=== PATIENT | female | born 1955 | race Caucasian/White ===

== ENCOUNTER 2024-06-21 23:17 | Inpatient (IN) | payer MEDICARE, MEDICAID, SELFPAY ==
--- NOTE | 2024-06-21 23:19 | PC.NURSE ---
PT BROUGHT TO ER FROM HOME BY AMBULANCE, PT TRIPPED AND FALL, C/O SEVERE LEFT SHOULDER PAIN AND RIGHT KNEE PAIN.
[2024-06-21 23:23] VITALS: BMI 25.4
[2024-06-21 23:26] VITALS: BP 175/107; PULSE 99; RESP 18; TEMP 36.9; O2SAT 98
--- NOTE | 2024-06-21 23:37 | XR_ITS ---
Examination: Knee, right , 3 views Technique: Knee AP, lateral, oblique 3 views Date and time of exam: June 21, 2024 1148 hrs. Indications: Patient fell today with injury to the knee, knee pain. Findings: Severe osteopenia Acute fracture lower third of the patella without significant displacement Axial view of the patella would be helpful to exclude subluxation laterally Probable trabecular markings in the proximal tibia but clinical correlation advised Impression: Acute fracture patella On the AP view the patella is laterally situated, suggest axial view follow-up to exclude patellar subluxation
--- NOTE | 2024-06-21 23:37 | XR_ITS ---
Examination: Left shoulder 2 views Technique: AP internal rotation Y-view left shoulder 2 views January 19, 2025 1143 hrs. Indications: Patient fell today with injury to the shoulder, shoulder pain. Findings: Acute comminuted fracture humeral neck No significant displacement No definite shoulder dislocation Calcific tendinitis Impression: Acute fracture humeral neck
--- NOTE | 2024-06-21 23:43 | EDNOTE_ITS ---
ED Fall Injury RME/HPI General Chief Complaint: Fall Stated Complaint: FALL Time Seen by Provider: 06/21/24 23:51 Arrival date/time: 06/21/24 23:17 RME / HPI RME / HPI Narrative: Dr. Marino?s Main ED Evaluation: 69yo female with pmhx CVA, MS, HTN, DMII BIBA from home presents to the ED for a fall. Patient states she tripped over her walker tonight, reporting she stretched out her LUE to break her fall. She endorses pain throughout the entire LUE and right knee pain. She states she hit her head, but did not lose consciousness. She denies any neck pain, back pain, chest pain, abdominal pain or any other associated symptoms. Related Data Home Medications ?Medication ?Instructions ?Recorded ?Confirmed baclofen 10 mg tablet 10 mg PO BID #0 tabs 02/07/14 06/22/24 pantoprazole 40 mg tablet,delayed 40 mg PO QDAY ##0 02/07/14 06/22/24 release (Protonix) buspirone 15 mg tablet 15 mg PO BID #0 tabs 08/15/16 06/22/24 levothyroxine 25 mcg tablet 25 mcg PO QDAY 05/06/21 06/22/24 metformin 500 mg tablet,extended 500 mg PO QID 05/06/21 06/22/24 release 24 hr ondansetron HCl 4 mg tablet 4 mg PO TID PRN Nausea 05/06/21 06/22/24 sitagliptin phosphate 25 mg tablet 25 mg PO QDAY 05/06/21 06/22/24 (Januvia) acetaminophen 300 mg-codeine 30 mg 1 tab PO [id number] PRN Pain 06/22/24 06/22/24 tablet atorvastatin 20 mg tablet 20 mg PO DAILY 06/22/24 06/22/24 calcitriol 0.25 mcg capsule 0.25 mcg PO DAILY 06/22/24 06/22/24 empagliflozin 25 mg tablet 25 mg PO DAILY 06/22/24 06/22/24 (Jardiance) zolpidem 5 mg tablet 5 mg PO HSPRN PRN Sleep 06/22/24 06/22/24 Previous Rx's ?Medication ?Instructions ?Recorded aspirin 81 mg tablet,delayed 81 mg PO QDAY #0 tabs 03/23/24 release clopidogrel 75 mg tablet 75 mg PO QDAY #30 tabs 09/06/23 meclizine 25 mg tablet 25 mg PO TID #90 tabs 09/06/23 aspirin 81 mg tablet,delayed 81 mg PO HS FOR DVT prophylaxis 06/26/24 release #20 tabs hydrocodone 7.5 mg-acetaminophen 1 tab PO Q6H PRN pain 15 days #30 06/26/24 325 mg tablet tabs ibuprofen 400 mg tablet 400 mg PO Q8H PRN fever 20 days 06/26/24 #30 tabs Allergies Allergy/AdvReac Type Severity Reaction Status Date / Time morphine Allergy Severe VOMITING Verified 06/22/24 01:12 Penicillins Allergy Severe Hives Verified 06/22/24 01:12 adhesive Allergy Intermediate Rash Verified 06/22/24 01:12 Review of Systems Review of Systems Systems Reviewed: All systems reviewed, normal except as documented Past Medical History Past Medical History NEUROLOGIC: Positive Neurological Disorders, Cerebrovascular Accident, Transient Ischemic Attacks (TIA) and Multiple Sclerosis CARDIAC: Positive Hypertension; Negative Cardiac Disorders or Congestive Heart Failure RESPIRATORY: Negative Chronic Obstructive Pulmonary Disease (COPD) or Asthma GENITOURINARY: Negative Renal Disease ENT: Negative Glaucoma ENDOCRINE: Positive Diabetes Mellitus Type 2 and Hypothyroidism; Negative Diabetes Mellitus Type 1 HEMATOLOGIC: Negative Blood Disorders or Sickle Cell Disease PSYCHO/SOCIAL: Positive Depression Social History SMOKING STATUS: Never smoker ED Exam Narrative Physical exam: GENERAL APPEARANCE: alert and oriented x 4, well-developed, well-nourished, in [id number] pain distress VITALS: All vitals were reviewed and the pulse ox is 98% on room air, which is normal according to my interpretation. HEENT: Normocephalic, atraumatic; pupils equal, round, reactive to light; EOMI; mucous membranes pink, moist; oropharynx clear NECK: Supple LUNGS: CTABL; no wheezes, no rales, no rhonchi HEART: Regular rate, regular rhythm; normal S1, S2; no murmurs ABDOMEN: non distended; normal BS; soft, no tenderness, no guarding, no rebound; no masses, no organomegaly, no hernia BACK: no CVA tenderness EXTREMITIES: generalized swelling of the entire left deltoid region with exquisite tenderness; abrasion and contusion to the anterior right knee; tenderness to the left wrist and elbow without any deformity; no edema NEUROLOGIC: awake; alert and oriented x4; cranial nerves II-XII grossly intact; no focal sensory or motor deficits PSYCHIATRIC: appropriate mood and affect SKIN: warm, dry, normal color; no rashes Course Course Course Narrative: CXR is ordered to r/o pneumothorax. Quality Measures none Orders Category Date Time Status Cv/Cvn Cv Tsc System Operator STAT Care 06/22/24 00:23 Active Continuous Pulse Oximetry NOW Care 06/22/24 00:23 Completed EKG (ED ONLY) *Do not use* NOW Care 06/22/24 00:23 Completed Insert IV STAT Care 06/22/24 00:23 Active Urinary Catheter STAT Care 06/22/24 00:[address] cervical spine wo con Stat Exams 06/22/24 00:[address] head/brain wo con Stat Exams 06/22/24 00:21 Taken EKG (ED Only) Stat Exams 06/22/24 00:23 Draft XR chest 1V Stat Exams 06/22/24 00:21 Taken XR elbow comp LT min 3V Stat Exams 06/21/24 23:52 Taken XR hip RT w pelvis 2-3V Stat Exams 06/22/24 00:21 Taken XR knee RT 3V Stat Exams 06/21/24 23:37 Completed XR knee limited RT 2V Stat Exams 06/22/24 05:16 Ordered XR shoulder LT min 2V Stat Exams 06/21/24 23:37 Completed XR wrist LT 2V Stat Exams 06/22/24 00:34 Taken B-Type Natriuretic Peptide Stat Lab 06/22/24 00:52 Completed CBC Stat Lab 06/22/24 00:52 Completed CMP [Comprehensive Metabolic Panel] Stat Lab 06/22/24 00:52 Completed Lipase Stat Lab 06/22/24 00:52 Completed Magnesium Stat Lab 06/22/24 00:52 Completed Partial Thromboplastin Time Stat Lab 06/22/24 00:52 Completed Prothrombin Time with INR Stat Lab 06/22/24 00:52 Completed Troponin I Stat Lab 06/22/24 00:52 Completed Urinalysis, C/S if Indicated Stat Lab 06/22/24 02:34 Completed Acetaminophen Ivpb [Ofirmev Inj] Med 06/22/24 00:20 Active 1,000 mg in 100 ml IV Q6HR Baclofen [Lioresal] Med 06/22/24 02:03 Discontinued 10 mg PO X1 ONE HYDROmorphone INJ [Dilaudid Inj] Med 06/22/24 05:26 Discontinued 0.5 mg IVP X1 ONE Ondansetron Inj [Zofran Inj] Med 06/22/24 00:19 Discontinued 4 mg IV X1 ONE Sodium Chloride 0.9% 500 ml [Ns] 500 ml Med 06/22/24 00:23 Discontinued IV 999 mls/hr fentaNYL INJ [Sublimaze Inj] Med 06/22/24 03:36 Discontinued 100 mcg IVP X1 ONE fentaNYL INJ [Sublimaze Inj] Med 06/22/24 00:19 Discontinued 50 mcg IVP X1 ONE Vital Signs Vital signs: Vital Signs Temperature 98.5 F 06/21/24 23:26 Pulse Rate 99 06/21/24 23:26 Respiratory Rate 18 06/21/24 23:26 Blood Pressure 175/107 H 06/21/24 23:26 Pulse Oximetry (%) 98 06/21/24 23:26 Oxygen Delivery Method Room Air 06/21/24 23:26 Fall MDM Narrative MDM Narrative:: Scribe Attestation: 06/21/24 Ayse Yarbrough am scribing for and in the presence of Dr. Marino. Patient data External records reviewed:: [facility] previous records (Per chart review, patient was seen here on 11/16/23 for a contusion of the right rib.) Clinical information provided by:: patient Social determinants that could affect healthcare access:: none Patient has the following chronic illnesses:: CVA, MS, HTN, DMII How is presenting disease/condition affected by chronic disease/condition?: uneffected by Evaluation data The following diagnostics were reviewed and interpreted by me:: lab results, radiology exam(s) and EKG tracing(s) Lab and/or radiology exams considered but not ordered:: none Interpretation Summary: CBC is normal, Glucose is 182, troponin is normal, BNP is normal, according to my interpretation. CXR shows normal cardiac silhouette, no infiltrates, widened mediastinum, similar to previous CXRs, according to my interpretation. Right knee x-ray shows a patellar fracture with a mild joint effusion, but no plateau fracture, according to my interpretation. Left shoulder x-ray shows a humeral neck fracture, no displacement, no angulation, no dislocation, according to my interpretation. Right hip with pelvis x-ray is negative for any pelvic ring fractures, hip fracture or proximal femoral fractures, according to my interpretation. Left wrist x-ray is negative for any scaphoid fractures, distal radial/ulna fractures or carpal dislocations, according to my interpretation. EKG done at 0137, NSR, rate of 91, normal axis, no ectopy, Q waves in V1 and V2, no acute ischemia, according to my interpretation. -------- [facility] Preliminary Report Draft Patient: SERGO BAZZI. Record#: [id number] Birthdate: 1955 Age/Sex: 69 / F Location: [facility] Attending Dr: Ordering Physician: Date of Service: Procedure(s): Accession Number(s): cc: ~ CT scan of the head without intravenous contrast (axial sections with sagittal and coronal reformats) June 22, 2024 at 0120 hours Clinical History: Fall, multiple injuries. Reference is made to the prior preliminary report dated June 21, 2020. Findings: No evidence of intracranial hemorrhage, mass effect or midline shift. There are old infarcts in the left periventricular tan radiata and right centrum semiovale. There are mild periventricular white matter hypodensities, suggestive of chronic small vessel ischemia. The ventricles and CSF spaces are unremarkable. There is atheromatous calcification of the intracranial arteries. The calvarium is intact. There is mild mucosal thickening in the right maxillary sinus. The mastoid air cells are clear. Again seen are calcified sebaceous cysts in the occipital scalp. Impression: No evidence of intracranial hemorrhage, midline shift or calvarial fracture. Old infarcts in the left periventricular tan radiata and right centrum semiovale, new since the prior examination. Other stable findings as described above. Report Electronically Signed By: Baljinder Glass 06/22/2024 2:22:13 AM [EST] ------- [facility] Preliminary Report Draft Patient: SERGO BAZZI [facility]. Record#: [id number] Birthdate: 1955 Age/Sex: 69 / F Location: [facility] Attending Dr: Ordering Physician: Date of Service: Procedure(s): Accession Number(s): cc: ~ CT scan of the cervical spine without intravenous contrast (axial sections with sagittal and coronal reformats). June 22, 2024 at 0122 hours Clinical history: Fall, multiple injuries, pain. Reference is made to the prior report dated June 09, 2019. Findings: There is no fracture or traumatic subluxation. There is multilevel mild bone and disc degenerative changes. The prevertebral soft tissues are unremarkable. Impression: No evidence of fracture or traumatic subluxation. Mild degenerative changes. Report Electronically Signed By: Baljinder Glass 06/22/2024 2:24:54 AM [EST] Medications / Prescriptions Medications or Prescriptions considered but not ordered:: none Medication administrations:: Medication Administration History Discontinued Medications Acetaminophen (Acetaminophen 325 Mg Tablet) 650 mg PO Q6H PRN PRN Reason: Fever >101.5 Stop: 07/22/24 06:15 Last Admin: 06/30/24 02:46 Dose: 650 mg Documented By: MRJose Admin: 06/29/24 20:26 Dose: 650 mg Documented By: Admin: 06/29/24 04:38 Dose: 650 mg Documented By: Admin: 06/28/24 20:18 Dose: 650 mg Documented By: Admin: 06/28/24 13:18 Dose: 650 mg Documented By: Admin: 06/28/24 05:28 Dose: 650 mg Documented By: Admin: 06/27/24 23:09 Dose: 650 mg Documented By: Admin: 06/27/24 03:00 Dose: 650 mg Documented By: CTF Hydrocodone Bitart/Acetaminophen (Hydrocodone/Apap 10/325 Tab) 1 tab PO Q6HR PRN PRN Reason: PAIN SCALE 4-6(MODERATE) Stop: 06/27/24 10:13 Last Admin: 06/24/24 04:41 Dose: 1 tab Documented By: Admin: 06/23/24 20:57 Dose: 1 tab Documented By: Admin: 06/23/24 12:02 Dose: 1 tab Documented By: Admin: 06/23/24 05:03 Dose: 1 tab Documented By: Admin: 06/22/24 19:59 Dose: 1 tab Documented By: Admin: 06/22/24 10:51 Dose: 1 tab Documented By: PP Hydrocodone Bitart/Acetaminophen (Hydrocodone/Apap 5/325 Tablet) 1 tab PO Q6HR PRN PRN Reason: PAIN SCALE 4-6(MODERATE) Stop: 06/29/24 08:37 Last Admin: 06/25/24 08:05 Dose: 1 tab Documented By: Admin: 06/24/24 16:27 Dose: 1 tab Documented By: Hydrocodone Bitart/Acetaminophen (Hydrocodone/Apap 7.5/325 Tablet) 1 tab PO Q6HR PRN PRN Reason: PAIN SCALE 4-6 (Moderate Stop: 06/30/24 13:59 Hydrocodone Bitart/Acetaminophen (Hydrocodone/Apap 7.5/325 Tablet) 1 tab PO Q4HR PRN PRN Reason: PAIN SCALE 4-6 (Moderate Stop: 06/30/24 13:59 Last Admin: 06/27/24 09:55 Dose: 1 tab Documented By: Admin: 06/26/24 03:33 Dose: 1 tab Documented By: Admin: 06/25/24 19:26 Dose: 1 tab Documented By: NIMCO Hydrocodone Bitart/Acetaminophen (Hydrocodone/Apap 5/325 Tablet) 1 tab PO Q6HR PRN PRN Reason: PAIN SCALE 4-6 (Moderate Stop: 07/02/24 11:20 Last Admin: 06/30/24 08:40 Dose: 1 tab Documented By: WILMER Baclofen (Baclofen 10 Mg Tablet) 10 mg PO X1 ONE Stop: 06/22/24 02:04 Last Admin: 06/22/24 02:13 Dose: 10 mg Documented By: LEORA Baclofen (Baclofen 10 Mg Tablet) 10 mg PO BID ISRA Stop: 07/22/24 08:59 Last Admin: 06/23/24 08:02 Dose: 10 mg Documented By: Admin: 06/22/24 20:13 Dose: 10 mg Documented By: Admin: 06/22/24 09:49 Dose: 10 mg Documented By: PP Baclofen (Baclofen 10 Mg Tablet) 10 mg PO TID ISRA Stop: 07/23/24 15:14 Last Admin: 06/30/24 14:18 Dose: 10 mg Documented By: Admin: 06/30/24 05:08 Dose: 10 mg Documented By: MRJose Admin: 06/29/24 21:18 Dose: 10 mg Documented By: MRJose Admin: 06/29/24 15:04 Dose: 10 mg Documented By: Admin: 06/29/24 05:27 Dose: 10 mg Documented By: Admin: 06/28/24 21:20 Dose: 10 mg Documented By: Admin: 06/28/24 13:18 Dose: 10 mg Documented By: Admin: 06/28/24 05:29 Dose: 10 mg Documented By: Admin: 06/27/24 21:21 Dose: 10 mg Documented By: Admin: 06/27/24 13:18 Dose: 10 mg Documented By: Admin: 06/27/24 05:15 Dose: 10 mg Documented By: Admin: 06/26/24 21:43 Dose: 10 mg Documented By: Admin: 06/26/24 14:37 Dose: 10 mg Documented By: Admin: 06/26/24 05:24 Dose: 10 mg Documented By: Admin: 06/25/24 21:07 Dose: 10 mg Documented By: Admin: 06/25/24 13:44 Dose: 10 mg Documented By: Admin: 06/25/24 05:53 Dose: 10 mg Documented By: Admin: 06/24/24 21:02 Dose: 10 mg Documented By: Admin: 06/24/24 14:16 Dose: 10 mg Documented By: Admin: 06/24/24 05:37 Dose: 10 mg Documented By: Admin: 06/23/24 21:00 Dose: 10 mg Documented By: Admin: 06/23/24 15:56 Dose: 10 mg Documented By: CV Clopidogrel Bisulfate (Clopidogrel Bisulfate 75 Mg Tablet) 75 mg PO QDAY ISRA Stop: 07/22/24 08:59 Last Admin: 06/30/24 08:36 Dose: 75 mg Documented By: Admin: 06/29/24 08:51 Dose: 75 mg Documented By: Admin: 06/28/24 09:40 Dose: 75 mg Documented By: Admin: 06/27/24 09:46 Dose: 75 mg Documented By: Admin: 06/26/24 08:41 Dose: 75 mg Documented By: Admin: 06/25/24 08:05 Dose: 75 mg Documented By: Admin: 06/24/24 08:52 Dose: 75 mg Documented By: Admin: 06/22/24 09:49 Dose: 75 mg Documented By: PP Dextrose (Dextrose 50%-Water Inj 50 Ml Syringe) 25 ml IV Q15MIN PRN PRN Reason: BG 50-70 responsive npo pt Stop: 07/22/24 06:30 Dextrose (Dextrose 50%-Water Inj 50 Ml Syringe) 50 ml IV Q15MIN PRN PRN Reason: BG <50 OR BG <70 & pt unresponsive Stop: 07/22/24 06:30 Diclofenac Sodium (Diclofenac 1% Top Gel 100 Gm Tube) 2 gm TOP QID PRN; Protocol PRN Reason: PAIN SCALE 4-10(Mod-Sev Stop: 07/24/24 05:59 Last Admin: 06/30/24 19:18 Dose: 2 gm Documented By: Admin: 06/30/24 08:48 Dose: 2 gm Documented By: Admin: 06/29/24 20:27 Dose: 2 gm Documented By: Admin: 06/29/24 04:38 Dose: 2 gm Documented By: Admin: 06/28/24 20:24 Dose: 2 gm Documented By: MRJose Enoxaparin Sodium (Enoxaparin Sod Inj 40 Mg/0.4 Ml Syringe) 40 mg SC QDAY ISRA Stop: 07/08/24 08:59 Last Admin: 06/30/24 08:43 Dose: Not Given Documented By: MO Non-Admin Reason: Patient Refused Admin: 06/29/24 13:43 Dose: Not Given Documented By: LH Non-Admin Reason: Patient Refused Admin: 06/28/24 09:40 Dose: Not Given Documented By: GC Non-Admin Reason: Patient Refused Admin: 06/27/24 09:46 Dose: Not Given Documented By: GC Non-Admin Reason: Patient Refused Admin: 06/26/24 09:19 Dose: Not Given Documented By: CV Non-Admin Reason: Patient Refused Admin: 06/25/24 08:05 Dose: 40 mg Documented By: Admin: 06/24/24 08:52 Dose: 40 mg Documented By: SN Fentanyl Citrate (Fentanyl Cit Inj 50 Mcg/Ml Amp 2ml) 50 mcg IVP X1 ONE Stop: 06/22/24 00:20 Last Admin: 06/22/24 00:31 Dose: 50 mcg Documented By: CVL Fentanyl Citrate (Fentanyl Cit Inj 50 Mcg/Ml Amp 2ml) 100 mcg IVP X1 ONE Stop: 06/22/24 03:37 Last Admin: 06/22/24 03:49 Dose: 100 mcg Documented By: CVL Glucagon (Glucagon Inj 1 Mg Vial) 1 mg IM Q15MIN PRN PRN Reason: BG <70, and no IV access Heparin Sodium (Porcine) (Heparin Sod Inj 5000 Unit/Ml Vial) 5,000 unit SC Q8HR ISRA Stop: 07/06/24 13:59 Last Admin: 06/23/24 14:15 Dose: Not Given Documented By: CV Non-Admin Reason: Patient Refused Admin: 06/23/24 05:11 Dose: Not Given Documented By: ME Non-Admin Reason: Patient Refused Admin: 06/22/24 22:51 Dose: Not Given Documented By: ME Non-Admin Reason: Patient Refused Admin: 06/22/24 15:57 Dose: Not Given Documented By: PP Non-Admin Reason: Patient Refused Hydralazine HCl (Hydralazine Inj 20 Mg/Ml Vial) 10 mg IV X1 ONE Stop: 06/24/24 04:27 Last Admin: 06/24/24 04:40 Dose: 10 mg Documented By: NIMCO Hydromorphone HCl (Hydromorphone Inj 2 Mg/Ml Vial) 0.5 mg IVP X1 ONE Stop: 06/22/24 05:27 Last Admin: 06/22/24 05:32 Dose: 0.5 mg Documented By: LEORA Hydromorphone HCl (Hydromorphone Inj 2 Mg/Ml Vial) 0.5 mg IVP Q3H PRN; Protocol PRN Reason: PAIN Stop: 06/27/24 06:15 Last Admin: 06/24/24 06:32 Dose: 0.5 mg Documented By: Admin: 06/24/24 03:37 Dose: 0.5 mg Documented By: Admin: 06/23/24 23:58 Dose: 0.5 mg Documented By: Admin: 06/23/24 19:26 Dose: 0.5 mg Documented By: Admin: 06/23/24 15:52 Dose: 0.5 mg Documented By: Admin: 06/23/24 10:28 Dose: 0.5 mg Documented By: Admin: 06/23/24 06:40 Dose: 0.5 mg Documented By: Admin: 06/23/24 02:49 Dose: 0.5 mg Documented By: Admin: 06/22/24 22:23 Dose: 0.5 mg Documented By: Admin: 06/22/24 18:22 Dose: 0.5 mg Documented By: Admin: 06/22/24 12:46 Dose: 0.5 mg Documented By: Admin: 06/22/24 09:43 Dose: 0.5 mg Documented By: Admin: 06/22/24 07:19 Dose: 0.5 mg Documented By: BISHOP Hydromorphone HCl (Hydromorphone Inj 2 Mg/Ml Vial) 0.25 mg IVP Q3H PRN; Protocol PRN Reason: Pain 7-10 Stop: 06/27/24 06:15 Hydromorphone HCl (Hydromorphone Inj 2 Mg/Ml Vial) 0.25 mg IVP Q4HR PRN; Protocol PRN Reason: Pain 7-10 Stop: 06/29/24 08:37 Acetaminophen (Ofirmev Inj) 1,000 mg in 100 mls @ 250 mls/hr IV Q6HR ISRA Stop: 06/22/24 18:23 Last Infusion: 06/22/24 19:22 Dose: Infused Documented By: Admin: 06/22/24 18:22 Dose: 100 mls/hr Documented By: Infusion: 06/22/24 13:38 Dose: Infused Documented By: Admin: 06/22/24 12:38 Dose: 100 mls/hr Documented By: Admin: 06/22/24 06:22 Dose: Not Given Documented By: SHANNAN Non-Admin Reason: Change of Condition Infusion: 06/22/24 01:13 Dose: Infused Documented By: Admin: 06/22/24 00:29 Dose: 250 mls/hr Documented By: CVL Sodium Chloride (Ns) 500 mls @ 999 mls/hr IV .Q31M ONE Stop: 06/22/24 00:53 Last Infusion: 06/22/24 02:24 Dose: Infused Documented By: Admin: 06/22/24 01:44 Dose: 999 mls/hr Documented By: CVL Sodium Chloride (Ns) 500 mls @ 999 mls/hr IV .Q31M ONE Stop: 06/22/24 06:26 Last Infusion: 06/22/24 06:51 Dose: Infused Documented By: Admin: 06/22/24 06:08 Dose: 999 mls/hr Documented By: EE Sodium Chloride (Ns) 1,000 mls @ 75 mls/hr IV .[id number] [facility] Stop: 07/22/24 06:29 Last Admin: 06/22/24 07:28 Dose: 75 mls/hr Documented By: BISHOP Magnesium Sulfate (Magnesium Sulfate Ivpb) 4 gm in 50 mls @ 12.5 mls/hr IV X1 ONE Stop: 06/24/24 12:36 Last Admin: 06/24/24 08:52 Dose: 12.5 mls/hr Documented By: Insulin Human Lispro (Insulin Lispro (Admelog) 1 Unit/0.01 Ml Unit) 0 unit SC AC [facility]; Protocol Stop: 07/22/24 07:29 Last Admin: 06/23/24 17:07 Dose: Not Given Documented By: CV Non-Admin Reason: Per Protocol Admin: 06/23/24 12:06 Dose: Not Given Documented By: CV Non-Admin Reason: Per Protocol Admin: 06/23/24 07:48 Dose: Not Given Documented By: CV Non-Admin Reason: Per Protocol Admin: 06/22/24 18:27 Dose: Not Given Documented By: PP Non-Admin Reason: Glucose, LOW Admin: 06/22/24 12:01 Dose: Not Given Documented By: PP Non-Admin Reason: Per Protocol Admin: 06/22/24 07:31 Dose: Not Given Documented By: DB Non-Admin Reason: Per Protocol Ketorolac Tromethamine (Ketorolac Inj 30 Mg/Ml Vial) 30 mg IVP X1 ONE Stop: 06/22/24 22:58 Last Admin: 06/22/24 22:57 Dose: Not Given Documented By: ME Non-Admin Reason: ORDER CHANGED Ketorolac Tromethamine (Ketorolac Inj 30 Mg/Ml Vial) 15 mg IVP X1 ONE Stop: 06/22/24 23:04 Last Admin: 06/22/24 23:23 Dose: 15 mg Documented By: Ketorolac Tromethamine (Ketorolac Inj 30 Mg/Ml Vial) 30 mg IVP Q6HR PRN PRN Reason: PAIN SCALE 7-10 (Severe Stop: 06/29/24 11:08 Last Admin: 06/26/24 08:38 Dose: 30 mg Documented By: Admin: 06/25/24 23:19 Dose: 30 mg Documented By: Admin: 06/25/24 10:58 Dose: 30 mg Documented By: Admin: 06/25/24 04:17 Dose: 30 mg Documented By: Admin: 06/24/24 19:32 Dose: 30 mg Documented By: Admin: 06/24/24 12:52 Dose: 30 mg Documented By: Labetalol HCl (Labetalol Inj 5 Mg/Ml Vial 20 Ml) 5 mg IVP X1 ONE Stop: 06/26/24 09:00 Last Admin: 06/26/24 08:40 Dose: Not Given Documented By: CV Non-Admin Reason: Discontinued Lactulose (Lactulose Syrup 20 Gm/30 Ml Udc) 20 gm PO QDAY [facility]; Protocol Stop: 07/24/24 14:29 Last Admin: 06/30/24 08:36 Dose: Not Given Documented By: MO Non-Admin Reason: Patient Refused Admin: 06/29/24 13:43 Dose: Not Given Documented By: LH Non-Admin Reason: Patient Refused Admin: 06/28/24 09:40 Dose: Not Given Documented By: GC Non-Admin Reason: Patient Refused Admin: 06/27/24 09:47 Dose: Not Given Documented By: GC Non-Admin Reason: Patient Refused Admin: 06/26/24 09:20 Dose: Not Given Documented By: CV Non-Admin Reason: Patient Refused Admin: 06/25/24 08:06 Dose: Not Given Documented By: SN Non-Admin Reason: Patient Refused Admin: 06/24/24 16:21 Dose: Not Given Documented By: SN Non-Admin Reason: Patient Refused Levothyroxine Sodium (Levothyroxine Sodium 25 Mcg Tablet) 25 mcg PO ACBR ISRA Stop: 07/23/24 05:59 Last Admin: 06/30/24 05:08 Dose: 25 mcg Documented By: Admin: 06/29/24 05:27 Dose: 25 mcg Documented By: Admin: 06/28/24 05:29 Dose: 25 mcg Documented By: Admin: 06/27/24 05:15 Dose: 25 mcg Documented By: Admin: 06/26/24 05:24 Dose: 25 mcg Documented By: Admin: 06/25/24 05:53 Dose: 25 mcg Documented By: Admin: 06/24/24 05:37 Dose: 25 mcg Documented By: Admin: 06/23/24 05:03 Dose: 25 mcg Documented By: Meclizine HCl (Meclizine Hcl 25 Mg Tablet) 25 mg PO X1 ONE Stop: 06/26/24 12:11 Last Admin: 06/26/24 12:28 Dose: 25 mg Documented By: CONCHITA Meclizine HCl (Meclizine Hcl 25 Mg Tablet) 25 mg PO TID ISRA Stop: 07/27/24 13:59 Last Admin: 06/30/24 14:18 Dose: 25 mg Documented By: Admin: 06/30/24 05:08 Dose: 25 mg Documented By: Admin: 06/29/24 21:18 Dose: 25 mg Documented By: Admin: 06/29/24 15:04 Dose: 25 mg Documented By: Admin: 06/29/24 05:27 Dose: 25 mg Documented By: Admin: 06/28/24 21:20 Dose: 25 mg Documented By: Admin: 06/28/24 13:18 Dose: 25 mg Documented By: Admin: 06/28/24 05:29 Dose: 25 mg Documented By: Admin: 06/27/24 21:22 Dose: 25 mg Documented By: Admin: 06/27/24 13:18 Dose: 25 mg Documented By: JUANI Melatonin (Melatonin 3 Mg Tablet) 6 mg PO HS PRN PRN Reason: Insomnia Stop: 07/22/24 20:59 Ondansetron HCl (Ondansetron Inj 2 Mg/Ml Inj 2 Ml) 4 mg IV X1 ONE; Protocol Stop: 06/22/24 00:20 Last Admin: 06/22/24 00:29 Dose: 4 mg Documented By: CONCHITAL Ondansetron HCl (Ondansetron Odt 4 Mg Tabrap) 4 mg PO Q6HR PRN; Protocol PRN Reason: NAUSEA OR VOMITING Stop: 07/22/24 12:03 Last Admin: 06/27/24 00:21 Dose: 4 mg Documented By: Admin: 06/26/24 14:37 Dose: 4 mg Documented By: Admin: 06/26/24 08:47 Dose: 4 mg Documented By: Admin: 06/25/24 14:14 Dose: 4 mg Documented By: Admin: 06/25/24 01:37 Dose: 4 mg Documented By: Admin: 06/24/24 12:52 Dose: 4 mg Documented By: Admin: 06/22/24 12:39 Dose: 4 mg Documented By: PP Ondansetron HCl (Ondansetron Inj 2 Mg/Ml Inj 2 Ml) 4 mg IV X1 ONE; Protocol Stop: 06/24/24 10:01 Last Admin: 06/24/24 10:40 Dose: 4 mg Documented By: Pantoprazole Sodium (Pantoprazole Inj 40 Mg Vial) 40 mg IVP QDAY [facility] Stop: 07/22/24 08:59 Last Admin: 06/24/24 08:53 Dose: 40 mg Documented By: Admin: 06/23/24 08:02 Dose: 40 mg Documented By: Admin: 06/22/24 09:49 Dose: 40 mg Documented By: ELIAZAR Pantoprazole Sodium (Pantoprazole 40 Mg Tablet) 40 mg PO QDAY ISRA Stop: 07/22/24 08:59 Last Admin: 06/30/24 08:36 Dose: 40 mg Documented By: Admin: 06/29/24 08:51 Dose: 40 mg Documented By: Admin: 06/28/24 09:40 Dose: 40 mg Documented By: Admin: 06/27/24 09:46 Dose: 40 mg Documented By: Admin: 06/26/24 08:41 Dose: 40 mg Documented By: Admin: 06/25/24 08:05 Dose: 40 mg Documented By: Potassium Chloride (Potassium Chloride 10% 20 Meq/15 Ml Udc) 40 meq PO X1 ONE Stop: 06/24/24 08:36 Last Admin: 06/24/24 08:52 Dose: 40 meq Documented By: Potassium Chloride (Potassium Chloride 20 Meq Tabcr) 40 meq PO X1 ONE Stop: 06/27/24 11:20 Last Admin: 06/27/24 12:25 Dose: 40 meq Documented By: JUANI Sennosides (Senna Tablet) 1 tab PO X1 ONE; Protocol Stop: 06/24/24 14:28 Last Admin: 06/24/24 16:15 Dose: Not Given Documented By: Non-Admin Reason: Patient Refused Sennosides (Senna Tablet) 1 tab PO BID ISRA; Protocol Stop: 07/24/24 20:59 Last Admin: 06/30/24 08:36 Dose: Not Given Documented By: MO Non-Admin Reason: Patient Refused Admin: 06/29/24 20:27 Dose: 1 tab Documented By: Admin: 06/29/24 13:43 Dose: Not Given Documented By: LH Non-Admin Reason: Patient Refused Admin: 06/28/24 21:20 Dose: 1 tab Documented By: Admin: 06/28/24 09:41 Dose: Not Given Documented By: GC Non-Admin Reason: Patient Refused Admin: 06/27/24 21:21 Dose: 1 tab Documented By: Admin: 06/27/24 09:47 Dose: Not Given Documented By: GC Non-Admin Reason: Patient Refused Admin: 06/26/24 21:44 Dose: Not Given Documented By: FF Non-Admin Reason: Patient Refused Admin: 06/26/24 08:47 Dose: 1 tab Documented By: Admin: 06/25/24 21:09 Dose: Not Given Documented By: MP Non-Admin Reason: Patient Refused Admin: 06/25/24 08:06 Dose: Not Given Documented By: SN Non-Admin Reason: Patient Refused Admin: 06/24/24 21:03 Dose: Not Given Documented By: MP Non-Admin Reason: Patient Refused Tramadol HCl (Tramadol Hcl 50 Mg Tablet) 100 mg PO X1 ONE Stop: 06/25/24 00:15 Last Admin: 06/25/24 00:22 Dose: 100 mg Documented By: MP see above Consultations Consultation(s) initiated? (list below): Yes Consultation #1 (Physician, Specialty, Details): Discussed case with [Dr. Gomez] from [orthopedic surgery] regarding [consultation]. Discussed patients ED course, exam findings, labs, and radiology results. States to admit to the hospitalist and agrees to consult. Time: 05:12 Consultation #2 (Physician, Specialty, Details): Discussed case with [the resident physician, attending Dr. Bhardwaj] from Hospitalist service regarding admission. Discussed patients ED course, exam findings, labs, and radiology results. The Hospitalist [agrees] to accept the patient for admission. Time: 05:23 Diagnosis Fall Differential Diagnosis: other (shoulder fx vs. dislocation, elbow fx. vs dislocation, knee fracture, contusion, abrasion) Most likely diagnosis given after review of the tests above:: see below Admission Indicated Admission indicated?: indicated Admission Request Was there a request for admission?: Yes Admission Attestation Admission request attestation: Discussed case with [] from Hospitalist service regarding admission. Discussed patients ED course, exam findings, labs, and radiology results. The Hospitalist [agrees,declines] to accept the patient for admission. Disposition Plan Disposition Plan: Admit Discharge Plan Plan Patient Disposition: Admit Acute Care w/in Hospital Problem List Clinical Impression: Generalized weakness, Fracture, patella, Fracture of neck of humerus, Ground- level fall, Dehydration Patient/Caregiver Discharge Instructions Discharge Activity: as per physical therapy Other Activity Instructions:: ? Please follow-up with primary care physician in 1 week after discharge. ? Please follow-up with orthopedic surgeon Dr. Gomez in 1 to 2 weeks after disch arge. ? Please continue wearing knee immobilizing and arm swing. - We have prescribed hydrocodone-acetaminophen 7.5-325 mg 1 table by mouth every 6 hours as needed for pain. - We have prescribed ibuprofen 400mg every 8 hours as needed for pain. - Started on aspirin 81mg twice daily for 20 days for DVT prophylaxis, then continue once daily -Continue all other prescribed medications as prescribed. -Please come back to the ER if symptoms persist or worsen.
--- NOTE | 2024-06-21 23:52 | XR_ITS ---
Examination: Left elbow 3 views Technique: Elbow AP, oblique, lateral 3 views Exam date and time: June 21, 2024 at 11:54 PM INDICATIONS: Patient fell today with injury to the elbow, elbow pain. FINDINGS: Prominent osteopenia No acute fracture No elbow dislocation IMPRESSION: No acute fracture Given the prominent osteopenia suggest short-term follow-up elbow films as clinically warranted.
[2024-06-22] VITALS (10 sets, daily range): BP systolic 136–177; BP diastolic 74–116; PULSE 74–115; RESP 16–18; TEMP 36–36.7; O2SAT 96–98; BMI 25.4
--- NOTE | 2024-06-22 00:21 | XR_ITS ---
Examination:Right hip AP, lateral, AP pelvis 3 views Technique: Hip AP lateral, AP pelvis, 3 views Exam date and time:June 22, 2024 0032 hours INDICATIONS: Patient fell today with injury to the hip, right hip pain FINDINGS: Prominent osteopenia No acute right hip fracture or dislocation Left hip bones of the pelvis intact IMPRESSION: No acute right hip fracture If pain persists, recommend repeat AP pelvis in 1 day.
--- NOTE | 2024-06-22 00:21 | XR_ITS ---
Examination: CT cervical spine without contrast 2-D sagittal reconstructions 2-D coronal reconstructions 3-D reconstructions. Exam date and time:June 22, 2024 0122 hrs. Indications: Multiple falls today with injury to the neck, neck pain CTDI:vol (mGy) 12.76 DLP: (mGycm) 336 43 Technique: Multiple 2 mm axial sections of the cervical spine have been obtained. The coronal and sagittal reconstructions have been obtained. 3-D reconstructions have been obtained. Low dose protocols were performed. One or more of the following dose reduction techniques were used; automated exposure control, adjustment of the mA and/or KV according to patient size, use of iterative reconstruction technique. Findings: Axial sections demonstrate intact base of the skull. C1 exhibit satisfactory relationship to the odontoid. No acute cervical vertebral body fracture seen. Alignment posterior spinous processes satisfactory. Impression: No acute cervical fracture.
--- NOTE | 2024-06-22 00:21 | XR_ITS ---
Examination: AP chest single view Technique one AP portable supine chest single view Exam date and time: June 22, 2024 0046 hours INDICATIONS: Patient fell today with injury to the chest, chest pain FINDINGS: Normal heart size No pneumothorax No hemothorax Severe osteopenia Fracture right ninth rib in the midaxillary line IMPRESSION: No pneumothorax pulmonary contusion or hemothorax Acute appearing fracture right ninth rib in the midaxillary line, recommend right rib series follow-up
--- NOTE | 2024-06-22 00:21 | XR_ITS ---
Examination: CT brain head without contrast. 2-D sagittal coronal reconstructions Date and time of exam:June 22, 2024 0120 hrs. Comparison November 15, 2023 Indications: Multiple falls today with injury to the head, head pain, history CVA, old infarct left caudate nucleus on CT brain scan June 16, 2023 CTDI: vol (mGy):51.60 DLP: (mGycm):1087 Technique: Multiple CT axial sections of the brain have been obtained, 5 mm slice thickness. Contrast has not been administered. 2-D sagittal, coronal reconstructions have been obtained Low dose protocols were performed. One or more of the following dose reduction techniques were used; automated exposure control, adjustment of the mA and/or KV according to patient size, use of iterative reconstruction technique. Findings: No significant ventricular enlargement. Old infarcts left caudate nucleus, left thalamus and likely left brainstem pontine level Calcified likely sebaceous cyst in the posterior scalp Intra-axial or extra-axial hemorrhage density is not seen. No mass effect or midline shift Basal cisterns are not remarkable. Fourth ventricle is midline. Cranial vault intact. Impression: Negative for acute hemorrhage, mass effect or midline shift Multiple old infarcts, clinical correlation advised, if acute infarcts are a clinical consideration, suggest brain MRI follow-up
--- NOTE | 2024-06-22 00:23 | EKG_ITS ---
[facility], [place] Test Date: 2024-06-22 Pat Name: SERGO BAZZI Department: Room: - Gender: Female Manager Transportation: : [id number] Requested By: Pierce Farrell Order Number: [id number] Reading MD: Pierce Farrell Measurements Intervals [place] Rate: 91 P: 30 IN: 185 QRS: 34 QRSD: 72 T: 34 QT: 360 QTc: 445 Interpretive Statements SINUS RHYTHM Compared to ECG 05/06/2021 11:11:36 Sinus tachycardia no longer present /store/S0/[id number]/ecg/[id number].pdf
[2024-06-22] MEDS: ACETAMINOPHEN IVPB 1,000 MG/100 ML VIAL 250 MG IV (00:29)
[2024-06-22] MEDS: ONDANSETRON INJ 2 MG/ML INJ 2 ML 4 MG IV (00:29)
[2024-06-22] MEDS: fentaNYL CIT INJ 50 mCg/ML AMP 2ML IVP (00:31)
--- NOTE | 2024-06-22 00:34 | XR_ITS ---
Examination: Left wrist 2 views Technique one AP lateral left wrist 2 views INDICATIONS: Patient fell today with injury to the wrist, wrist pain FINDINGS: Limited study Prominent osteopenia No acute fracture depicted IMPRESSION: No acute fracture depicted
[2024-06-22 00:59] LABS: Basophils % (Auto) 0 % (0-2.5); Eosinophils # (Auto) 0.1 Thou/mm3 (0.0-0.5); Eosinophils % (Auto) 1 % (0-10); Hematocrit 41.2 % (36.0-46.0); Hemoglobin 14.1 g/dL (12.0-16.0); Immature Granulocytes % (Auto) 0 % (0-0); Immature Granulocytes Auto 0.04 Thou/mm3 (0.00-0.00); Lymphocytes # (Auto) 1.4 Thou/mm3 (1.0-4.8); Lymphocytes % (Auto) 14 % (10-50); Mean Corpuscular HGB Conc 34.2 g/dl (31.0-37.0); Mean Corpuscular Hemoglobin 29.7 pg (25.0-35.0); Mean Corpuscular Volume 87 fL (80-100); Monocytes # (Auto) 0.6 Thou/mm3 (0.0-0.8); Monocytes % (Auto) 6 % (0-12); Neutrophils # (Auto) 8.2 Thou/mm3 (1.8-7.7); Neutrophils % (Auto) 79 % (37-80); Nucleated Red Blood Cell % 0 /100 WBC (0); Platelet Count 175 Thou/mm3 (140-440); RDW Standard Deviation 42.6 fL (36.4-46.3); Red Blood Count 4.75 Miln/mm3 (4.00-5.20); White Blood Count 10.3 Thou/mm3 (3.6-11.0)
[2024-06-22 01:29] LABS: B-Type Natriuretic Peptide 27 pg/mL (0-100)
[2024-06-22 01:34] LABS: Alanine Aminotransferase 22 U/L (10-49); Albumin, Serum 4.8 gm/dL (3.4-4.8); Albumin/Globulin Ratio 1.5 (1.2-2.2); Alkaline Phosphatase 71 U/L (46-116); Anion Gap 14 (7-16); Aspartate Amino Transferase 27 U/L (0-34); BUN/Creatinine Ratio 26 Ratio (12-20); Bilirubin,Total 0.3 mg/dL (0.3-1.2); Blood Urea Nitrogen 13 mg/dL (9-23); Calcium 10.2 mg/dL (8.3-10.6); Calcium (Corrected) 10.2 mg/dL (8.5-10.1); Carbon Dioxide 22.5 mMol/L (20.0-31.0); Chloride 99 mMol/L (98-107); Creatinine (Component) 0.5 mg/dL (0.6-1.3); Estimated Creatinine Clearance 86.6 mL/min (>60); Globulin 3.1 gm/dL (2.3-3.5); Glucose 182 mg/dL (74-106); Lipase 46 U/L (12-53); Magnesium 1.7 mg/dL (1.6-2.6); Osmolality,Calculated 275 (275-295); Potassium 3.7 mMol/L (3.4-5.1); Sodium 135 mMol/L (136-145); Total Protein 7.9 gm/dL (5.7-8.2); Troponin I < 0.002 ng/mL (0.0-0.045); eGFR > 60 See Note
[2024-06-22] MEDS: SODIUM CHLORIDE 0.9% 500 ML 500 ML 999 ML IV ×2 (01:44→06:08)
[2024-06-22] MEDS: BACLOFEN 10 MG TABLET PO ×3 (02:13→20:13)
[2024-06-22 02:20] LABS: INR 1.1 (0.9-1.3); Partial Thromboplastin Time 24.7 Seconds (22.0-36.0); Prothrombin Time 12.3 Seconds (9.0-12.2)
--- NOTE | 2024-06-22 02:22 | PRELIM_ITS ---
CT scan of the head without intravenous contrast (axial sections with sagittal and coronal reformats) June 22, 2024 at 0120 hours Clinical History: Fall, multiple injuries.Reference is made to the pr ior preliminary report dated June 21, 2020.Findings:No evidence of intracranial hemorrhage, mass e ffect or midline shift. There are old infarcts in the left periventricular tan radiata and right c entrum semiovale. There are mild periventricular white matter hypodensities, suggestive of chronic sm all vessel ischemia. The ventricles and CSF spaces are unremarkable. There is atheromatous calcificat ion of the intracranial arteries. The calvarium is intact. There is mild mucosal thickening in the ri ght maxillary sinus. The mastoid air cells are clear. Again seen are calcified sebaceous cysts in the occipital scalp.Impression:No evidence of intracranial hemorrhage, midline shift or calvarial fractu re.Old infarcts in the left periventricular tan radiata and right centrum semiovale, new since the prior examination. Other stable findings as described above. Report Electronically Signed By: Shaista Glass 06/22/2024 2:22:13 AM [EST]
--- NOTE | 2024-06-22 02:25 | PRELIM_ITS ---
CT scan of the cervical spine without intravenous contrast (axial sections with sagittal and coronal reformats). June 22, 2024 at 0122 hoursClinical history: Fall, multiple injuries, pain.Reference i s made to the prior report dated June 09, 2019.Findings:There is no fracture or traumatic subluxa tion. There is multilevel mild bone and disc degenerative changes. The prevertebral soft tissues are unremarkable. Impression:No evidence of fracture or traumatic subluxation.Mild degenerative changes. Report Electronically Signed By: Baljinder Glass 06/22/2024 2:24:54 AM [EST]
[2024-06-22 02:46] LABS: Collection Type, Urine Catheter; Squamous Epithelial Cell,Urine 0 /hpf (0-5)
[2024-06-22 03:02] LABS: Bilirubin,Urine Negative (Negative); Blood,Urine Negative (Negative); Clarity,Urine Clear (Clear/Hazy); Color,Urine Colorless (Lt Yel-Yel); Culture Indicated,Urine Not Indicated; Glucose, Urine 4+ (Negative); Ketones,Urine 1+ (Negative); Leukocyte Esterase,Urine Negative (Negative); Nitrite,Urine Negative (Negative); Protein,Urine Negative (Neg - Trace); RBC,Urine 3 /hpf (0-3); Specific Gravity,Urine 1.019 (1.001-1.035); Urobilinogen,Urine Negative mg/dL (0.0-1.0); WBC,Urine 1 /hpf (0-5)
[2024-06-22] MEDS: fentaNYL CIT INJ 50 mCg/ML AMP 2ML 100 MCG IVP (03:49)
--- NOTE | 2024-06-22 05:16 | XR_ITS ---
Examination: Right knee single view Technique: Axial right knee single view Exam date and time: June 22, 2024 0618 hrs. Indications: Patient fell yesterday with patellar fracture, lateral position of the patella on the AP view of the knee Findings: No patellar dislocation Please see the knee report June 21, 2024 11:39 PM Impression: No patellar dislocation
[2024-06-22] MEDS: HYDROmorphone INJ 2 MG/ML VIAL 0.5 MG IVP ×6 (05:32→22:23)
--- NOTE | 2024-06-22 06:12 | PD.RESEVENT ---
Documentation for date of: 06/22/24 Event Note Event Note: Received call for admission Patient plan of care was discussed with the attending physician, Dr. Bhardwaj. Mireya Jones, PGY-2
--- NOTE | 2024-06-22 06:22 | ESHP_ITS ---
Documentation for date of: 06/22/24 HPI - Hospitalist History of Present Illness History of Present Illness: S/P fall History of present illness: The patient is a 69-year-old female with a history of cerebrovascular accident, multiple sclerosis, hypertension, and type 2 diabetes mellitus who presented to the Emergency Department after a fall at home. The patient states she was walking without her walker when she tripped over it while returning inside from taking her dogs out. She describes attempting to break her fall with her left upper extremity, resulting in immediate pain throughout the LUE and her right knee. She recalls nearly hitting her head but managed to avoid significant head trauma. She denies any loss of consciousness. 911 was called by her granddaughter, who lives with her. In the ED, she reported persistent pain in the left shoulder and right knee, with shooting pain in the LUE. She denies neck pain, back pain, chest pain, abdominal pain, or other associated symptoms. The patient is left-handed and notes difficulty moving her left arm due to pain. ER Course: * Vital signs in the ED: T 98.5?F, HR 99 bpm, RR 18 breaths/min, BP 175/107 mmHg. * Laboratory findings: CBC unremarkable, glucose 182 mg/dL. * Imaging studies: * X-ray: Acute fracture of the left humeral neck and right patella. * CT head: No evidence of intracranial hemorrhage, midline shift, or calvarial fracture. * CT neck: No evidence of fracture or traumatic subluxation. Orthopedics was consulted, and the patient was admitted for further management. Past Medical History (PMH): * Cerebrovascular accident (non-cardiogenic, attributed to MS). * Multiple sclerosis. * Type 2 diabetes mellitus. * Hypertension. Past Surgical History (PSH): * Hysterectomy. Allergies: * Aspirin: Rash. * Penicillin: Rash. * Morphine: Hives and severe paranoia. * Plastic tape: Rash. Social History (SH): * Denies tobacco or alcohol use. * Lives with her granddaughter. Review of Systems Review of Systems Narrative Review of Systems: A 14 point review of systems was assessed and negative except for that per HPI Past Medical History Past Medical History NEUROLOGIC: Positive Neurological Disorders, Cerebrovascular Accident, Transient Ischemic Attacks (TIA) and Multiple Sclerosis CARDIAC: Positive Hypertension; Negative Cardiac Disorders or Congestive Heart Failure RESPIRATORY: Negative Chronic Obstructive Pulmonary Disease (COPD) or Asthma GENITOURINARY: Negative Renal Disease ENT: Negative Glaucoma ENDOCRINE: Positive Diabetes Mellitus Type 2 and Hypothyroidism; Negative Diabetes Mellitus Type 1 HEMATOLOGIC: Negative Blood Disorders or Sickle Cell Disease PSYCHO/SOCIAL: Positive Depression Social History SMOKING STATUS: Never smoker Meds Home Medications and Allergies Home Medications ?Medication ?Instructions ?Recorded ?Confirmed ?Type baclofen 10 mg tablet 10 mg PO BID #0 tabs 02/07/14 06/22/24 History pantoprazole 40 mg tablet,delayed 40 mg PO QDAY ##0 02/07/14 06/22/24 History release (Protonix) buspirone 15 mg tablet 15 mg PO BID #0 tabs 08/15/16 06/22/24 History levothyroxine 25 mcg tablet 25 mcg PO QDAY 05/06/21 06/22/24 History metformin 500 mg tablet,extended 500 mg PO QID 05/06/21 06/22/24 History release 24 hr ondansetron HCl 4 mg tablet 4 mg PO TID PRN Nausea 05/06/21 06/22/24 History sitagliptin phosphate 25 mg tablet 25 mg PO QDAY 05/06/21 06/22/24 History (Januvia) acetaminophen 300 mg-codeine 30 mg 1 tab PO [id number] PRN Pain 06/22/24 06/22/24 History tablet atorvastatin 20 mg tablet 20 mg PO DAILY 06/22/24 06/22/24 History calcitriol 0.25 mcg capsule 0.25 mcg PO DAILY 06/22/24 06/22/24 History empagliflozin 25 mg tablet 25 mg PO DAILY 06/22/24 06/22/24 History (Jardiance) zolpidem 5 mg tablet 5 mg PO HSPRN PRN Sleep 06/22/24 06/22/24 History Allergies Allergy/AdvReac Type Severity Reaction Status Date / Time morphine Allergy Severe VOMITING Verified 06/22/24 01:12 Penicillins Allergy Severe Hives Verified 06/22/24 01:12 adhesive Allergy Intermediate Rash Verified 06/22/24 01:12 Exam Vital Signs Temp Pulse Resp BP Pulse Ox O2 Del Method O2 Flow Rate 98.1 F 100 18 177/116 H 98 Nasal Cannula 2 06/22/24 06:11 06/22/24 06:11 06/22/24 06:11 06/22/24 06:11 06/22/24 06:11 06/22/24 06:11 06/22/24 06:11 Narrative Constitutional: Female, in pain. Eyes: Extraocular movements intact. No ptosis. PERRL. Neck: Supple, trachea midline. No thyromegaly. Lungs: Clear and good breath sounds equally. No wheezing. No rhonchi. CV: S1, S2. Regular rate and rhythm. GI: Soft, nontender. No HSM. Musculoskeletal: No edema. LUE: Tenderness over the shoulder; limited active and passive range of motion secondary to pain. Right knee: Tenderness over the patella; limited range of motion due to pain. Neuro: Alert and oriented x3. Psychiatric: In a good mood. No signs of depression and is nonfocal. Skin: Warm and dry. No acute lesions. Results - Hospitalist Labs Diagrams: 06/22/24 00:52 06/22/24 00:52 Labs: Short CBC 06/22/24 Range/Units 00:52 WBC 10.3 (3.6-11.0) Thou/mm3 Hgb 14.1 (12.0-16.0) g/dL Hct 41.2 (36.0-46.0) % Plt Count 175 (140-440) Thou/mm3 BMP 06/22/24 00:52 Sodium 135 L Potassium 3.7 Chloride 99 Carbon Dioxide 22.5 BUN 13 Creatinine 0.5 L Glucose 182 H Calcium 10.2 Cardiac Enzymes 06/22/24 Range/Units 00:52 Troponin I < 0.002 (0.0-0.045) ng/mL Liver Function 06/22/24 Range/Units 00:52 Total Bilirubin 0.3 (0.3-1.2) mg/dL AST 27 (0-34) U/L ALT 22 (10-49) U/L Alkaline Phosphatase 71 (46-116) U/L Albumin 4.8 (3.4-4.8) gm/dL Urine 06/22/24 Range/Units 02:34 Urine Color Colorless A (Lt Yel-Yel) Urine Clarity Clear (Clear/Hazy) Urine pH 8.0 H (5.0-7.0) Ur Specific [place] 1.019 (1.001-1.035) Urine Protein Negative (Neg - Trace) Urine Glucose (UA) 4+ A (Negative) Assessment & Plan -Hospitalist Patient Synopsis # Acute left humeral neck fracture # Acute right patellar fracture * Orthopedic consult for evaluation and management. * Pain control: Continue Dilaudid as patient tolerated it in the ED without allergic reaction. * Initiate immobilization of the left upper extremity and right knee. * Physical therapy consult to assess and plan for future mobility and rehabilitation. # Hypertension/Diabetes Mellitus * Monitor blood pressure and glucose levels closely during hospitalization. * Adjust medications as necessary based on clinical parameters. # Multiple Sclerosis (MS) and Cerebrovascular Accident (CVA) history * Continue home medications for MS and CVA. DVT prophylaxis: Heparin Quality Measures Quality Measures none Advance care planning discussed with:: patient
[2024-06-22] MEDS: SODIUM CHLORIDE 0.9% 1000 ML 1,000 ML 75 ML IV (07:28)
--- NOTE | 2024-06-22 07:46 | PC.NURSE ---
Pt refused breakfast
--- NOTE | 2024-06-22 08:27 | PC.CC ---
Patient is a 69 year-old female who presents to the hospital for a Fall/Humeral Fracture. Leti BARBOSA made [id number] contact with patient. ASW introduced self, role, and reason for visit. Patient appeared alert and oriented to self, location, and situation. Patient was pleasant and engaged in initial assessment. Patient confirmed information on demographics and reports she lives at home with her granddaughter, Julia Rodriguez . Patient stated that should she not be able to make her own medical decisions she appoints her granddaughter, Julia Rodriguez. Patient shared she recently had a stroke and uses a walker to ambulate; however, last night she wanted to try and walk without the walker and tripped. Patient is not open to going to a SNF and reports when she had her stroke she was suppose to receive Home Health but the company never followed-up. She would like Home Health upon dischrage. Patient needs assistance with ADLs and her granddaughter helps her with her ADLs. Patient receives primary care provider is [facility] and pharmacy is [facility]. Upon discharge the patient plans on returning home with her granddaughter. volunteer services coordinator to follow up with any discharge needs.
[2024-06-22] MEDS: CLOPIDOGREL BISULFATE 75 MG TABLET PO (09:49)
[2024-06-22] MEDS: PANTOPRAZOLE INJ 40 MG VIAL IVP (09:49)
--- NOTE | 2024-06-22 10:14 | XR_ITS ---
Examination: Lateral knee single view TECHNIQUE: Portable lateral knee single view Exam date and time: June 22, 2024 1142 hours Comparison June 21, 2024 FINDINGS: Stable alignment fracture inferior patella Femoral condyles tibia intact IMPRESSION: Stable alignment fracture inferior patella
[2024-06-22] MEDS: HYDROcodone/APAP 10/325 TAB PO ×2 (10:51→19:59)
[2024-06-22] MEDS: ACETAMINOPHEN IVPB 1,000 MG/100 ML VIAL 100 MG IV ×2 (12:38→18:22)
[2024-06-22] MEDS: ONDANSETRON ODT 4 MG TABRAP PO (12:39)
--- NOTE | 2024-06-22 16:11 | PC.PT ---
PT eval order received. Awaiting for orthopedic recommendations before initiating PT evaluation. Will try tomorrow.
--- NOTE | 2024-06-22 19:27 | ESPR_ITS ---
Documentation for date of: 06/22/24 Subjective Subjective Interval history: The patient continues to have pain over the fracture sites. Dr. Gomez, orthopedics recommended continuing with supportive management, with pain control, knee brace and arm sling. Exam Vital Signs Temp Pulse Resp BP Pulse Ox O2 Del Method O2 Flow Rate 96.8 F 80 18 139/81 H 97 Room Air 2 06/22/24 16:00 06/22/24 16:00 06/22/24 16:00 06/22/24 16:00 06/22/24 16:00 06/22/24 16:00 06/22/24 16:00 Narrative Exam General: No acute distress, Alert and Oriented x 3, appeared in pain HEENT: Moist mucous membranes, oropharynx clear Neck: Supple, No masses, No JVD CVS: S1S2 Regular rate and rhythm, No murmurs, rubs or gallops Lungs: Clear to auscultation with no accessory use, no wheeze no rhonchi Abd: Soft, NT/ND, +BS, no organomegaly Ext: No edema, left arm in sling, and mild bruise over rt knee, warm and well perfused Skin: No rash Psych: Appropriate mood and affect Objective Labs 06/23/24 04:50 06/23/24 04:50 Labs: Laboratory Results - last 24 hr 06/22/24 06/22/24 00:52 02:34 WBC 10.3 RBC 4.75 Hgb 14.1 Hct 41.2 MCV 87 MCH 29.7 MCHC 34.2 RDW Std Deviation 42.6 Plt Count 175 Neut % (Auto) 79 Lymph % (Auto) 14 [place] % (Auto) 6 Eos % (Auto) 1 Baso % (Auto) 0 Neut # (Auto) 8.2 H Lymph # (Auto) 1.4 [place] # (Auto) 0.6 Eos # (Auto) 0.1 Baso # (Auto) 0.0 Immature Gran # (Auto) 0.04 H Absolute Nucleated RBC 0.00 Immature Gran % 0 Nucleated RBC % 0 PT 12.3 H INR 1.1 APTT 24.7 Sodium 135 L Potassium 3.7 Chloride 99 Carbon Dioxide 22.5 Anion Gap 14 BUN 13 Creatinine 0.5 L Estim Creat Clear Calc 86.6 eGFR > 60 BUN/Creatinine Ratio 26 H Glucose 182 H Calculated Osmolality 275 Calcium 10.2 Corrected Calcium 10.2 H Magnesium 1.7 Total Bilirubin 0.3 AST 27 ALT 22 Alkaline Phosphatase 71 Troponin I < 0.002 B-Natriuretic Peptide 27 Total Protein 7.9 Albumin 4.8 Globulin 3.1 Albumin/Globulin Ratio 1.5 Lipase 46 Ur Collection Type Catheter Urine Color Colorless A Urine Clarity Clear Urine pH 8.0 H Ur Specific [place] 1.019 Urine Protein Negative Urine Glucose (UA) 4+ A Urine Ketones 1+ A Urine Blood Negative Urine Nitrite Negative Urine Bilirubin Negative Urine Urobilinogen (Auto) Negative Ur Leukocyte Esterase Negative Urine RBC 3 Urine WBC 1 Ur Squamous Epith Cells 0 Urine Bacteria None Ur Culture Indicated? Not Indicated Quality Measures Quality Measures none Advance care planning discussed with:: patient Assessment & Plan Assessment Current Active Medications: Generic Name Dose Route Start Last Admin Trade Name Freq PRN Reason Stop Dose Admin Acetaminophen 650 mg 06/22/24 06:16 Acetaminophen 325 Mg Tablet PO 07/22/24 06:15 Q6H PRN Fever >101.5 Hydrocodone Bitart/Acetaminophen 1 tab 06/22/24 10:14 06/22/24 10:51 Hydrocodone/Apap 10/325 Tab PO 06/27/24 10:13 1 tab Q6HR PRN Administration PAIN SCALE 4-6(MODERATE) Baclofen 10 mg 06/22/24 09:00 06/22/24 09:49 Baclofen 10 Mg Tablet PO 07/22/24 08:59 10 mg BID ISRA Administration Clopidogrel Bisulfate 75 mg 06/22/24 09:00 06/22/24 09:49 Clopidogrel Bisulfate 75 Mg Tablet PO 07/22/24 08:59 75 mg QDAY ISRA Administration Dextrose 25 ml 06/22/24 06:31 Dextrose 50%-Water Inj 50 Ml Syringe IV 07/22/24 06:30 Q15MIN PRN BG 50-70 responsive npo pt Dextrose 50 ml 06/22/24 06:31 Dextrose 50%-Water Inj 50 Ml Syringe IV 07/22/24 06:30 Q15MIN PRN BG <50 OR BG <70 & pt unresponsive Glucagon 1 mg 06/22/24 06:31 Glucagon Inj 1 Mg Vial IM Q15MIN PRN BG <70, and no IV access Heparin Sodium (Porcine) 5,000 unit 06/22/24 14:00 06/22/24 15:57 Heparin Sod Inj 5000 Unit/Ml Vial SC 07/06/24 13:59 Not Given Q8HR ISRA Hydromorphone HCl 0.5 mg 06/22/24 06:16 06/22/24 18:22 Hydromorphone Inj 2 Mg/Ml Vial IVP 06/27/24 06:15 0.5 mg Q3H PRN Administration PAIN Protocol Insulin Human Lispro 0 unit 06/22/24 07:30 06/22/24 18:27 Insulin Lispro (Admelog) 1 Unit/0.01 Ml Unit SC 07/22/24 07:29 Not Given AC ISRA Protocol Levothyroxine Sodium 25 mcg 06/23/24 06:00 Levothyroxine Sodium 25 Mcg Tablet PO 07/23/24 05:59 ACBR ISRA Melatonin 6 mg 06/22/24 21:00 Melatonin 3 Mg Tablet PO 07/22/24 20:59 HS PRN Insomnia Ondansetron HCl 4 mg 06/22/24 12:04 06/22/24 12:39 Ondansetron Odt 4 Mg Tabrap PO 07/22/24 12:03 4 mg Q6HR PRN Administration NAUSEA OR VOMITING Protocol Pantoprazole Sodium 40 mg 06/22/24 09:00 06/22/24 09:49 Pantoprazole Inj 40 Mg Vial IVP 07/22/24 08:59 40 mg QDAY ISRA Administration Plan 69 F PMH of HTN, DM2, MS and CVA presented with mechanical fall while walking her dog was found to have humeral neck and right patellar fx. # Acute left humeral neck fracture # Acute right patellar fracture * Orthopedic Dr. Gomez consulted for evaluation and management, recommended continuing with supportive management, with pain control, knee brace and arm sling. * Pain control: Continue Dilaudid as patient tolerated it in the ED without allergic reaction. * Physical therapy consult to assess and plan for future mobility and rehabilitation. # Hypertension/Diabetes Mellitus * Monitor blood pressure and glucose levels closely during hospitalization. * Adjust medications as necessary based on clinical parameters. # Multiple Sclerosis (MS) and Cerebrovascular Accident (CVA) history * Continue home medications for MS and CVA. DVT prophylaxis: Heparin Diet: Cardiac diet Dispo: adimitted to [facility] for acute Fx of left humeral neck and rt patellar fx Code: Full code The patient's management plan was discussed with my attending physician MD Marc Addison MD, PGY2 Attending Provider Attestation/Addendum I have examined the patient, reviewed labs and imaging findings, discussed the case with the resident(s), and reviewed entered orders. I agree with the plan of care as outlined in this note, with these additional summaries/recommendations: Patient is a 69-year-old female with a medical history of CVA, multiple sclerosis, hypertension, dyslipidemia, GERD, and diabetes mellitus type 2 who presented to [facility] emergency department on 06/22/2024 after a ground-level mechanical fall. In the emergency department patient was found to have acute fractures hospital team consulted for continuation of care. Patient seen at bedside. Patient reports she had a ground-level mechanical fall and did not lose consciousness but reports she nearly hit her head. On admission cervical spine was negative for acute fracture. Chest x-ray showed fracture of ninth rib and mid axillary line. Head CT was negative for acute fracture or acute hemorrhage but did reveal multiple old infract's. Bilateral hip x-ray showed no acute hip fracture. X-ray right knee showed stable alignment of inferior patella fracture. Left shoulder x-ray revealed acute fracture of the humeral neck. Patient diagnosed with left humeral neck fracture, right ninth rib fracture, and right knee inferior patella fracture. Orthopedics consulted, recommendations appreciated. Case management arranging arm sling and appreciate Ortho recs on if any surgical intervention is required. Patient is reporting intractable pain. Continue oral [place] as needed with IV Dilaudid for breakthrough pain. We will hold home anticoagulation for history of CVA for now and will resume if no surgical intervention is needed. Continue insulin sliding scale for diabetes mellitus type 2. Continue home levothyroxine for hypothyroidism. Patient has history of multiple sclerosis and currently not on any disease modifying therapy but is on baclofen which we will resume. Patient updated on the plan and in agreement. Repeat hematology and chemistry panel in AM. Dr. Yanes
[2024-06-22] MEDS: KETOROLAC INJ 30 MG/ML VIAL 15 MG IVP (23:23)
[2024-06-23] MEDS: HYDROmorphone INJ 2 MG/ML VIAL 0.5 MG IVP ×6 (02:49→23:58)
[2024-06-23 04:00] VITALS: BP 125/72; PULSE 74; RESP 16; TEMP 36.5; O2SAT 96
[2024-06-23] MEDS: LEVOTHYROXINE SODIUM 25 MCG TABLET PO (05:03)
[2024-06-23] MEDS: HYDROcodone/APAP 10/325 TAB PO ×3 (05:03→20:57)
[2024-06-23 05:33] LABS: Basophils % (Auto) 0 % (0-2.5); Eosinophils # (Auto) 0.2 Thou/mm3 (0.0-0.5); Eosinophils % (Auto) 2 % (0-10); Hematocrit 36.8 % (36.0-46.0); Hemoglobin 12.5 g/dL (12.0-16.0); Immature Granulocytes % (Auto) 0 % (0-0); Immature Granulocytes Auto 0.03 Thou/mm3 (0.00-0.00); Lymphocytes # (Auto) 2.2 Thou/mm3 (1.0-4.8); Lymphocytes % (Auto) 30 % (10-50); Mean Corpuscular Volume 88 fL (80-100); Monocytes # (Auto) 0.7 Thou/mm3 (0.0-0.8); Monocytes % (Auto) 9 % (0-12); Neutrophils # (Auto) 4.3 Thou/mm3 (1.8-7.7); Neutrophils % (Auto) 58 % (37-80); Nucleated Red Blood Cell % 0 /100 WBC (0); Platelet Count 171 Thou/mm3 (140-440); RDW Standard Deviation 43.9 fL (36.4-46.3); Red Blood Count 4.17 Miln/mm3 (4.00-5.20); White Blood Count 7.4 Thou/mm3 (3.6-11.0)
[2024-06-23 06:23] LABS: Anion Gap 7 (7-16); BUN/Creatinine Ratio 28 Ratio (12-20); Blood Urea Nitrogen 11 mg/dL (9-23); Calcium 8.9 mg/dL (8.3-10.6); Chloride 103 mMol/L (98-107); Creatinine (Component) 0.4 mg/dL (0.6-1.3); Estimated Creatinine Clearance 108.3 mL/min (>60); Glucose 108 mg/dL (74-106); Osmolality,Calculated 274 (275-295); Potassium 3.6 mMol/L (3.4-5.1); Sodium 137 mMol/L (136-145); eGFR > 60 See Note
[2024-06-23 08:00] VITALS: BP 157/86; PULSE 82; RESP 17; TEMP 36.2; O2SAT 97
[2024-06-23] MEDS: BACLOFEN 10 MG TABLET PO ×3 (08:02→21:00)
[2024-06-23] MEDS: PANTOPRAZOLE INJ 40 MG VIAL IVP (08:02)
--- NOTE | 2024-06-23 09:14 | PD.ORTHCON ---
HPI Consult details Reason for consultation narrative: Right knee and left shoulder pain History of present illness: Maribel is a 69-year-old female with multiple sclerosis is a baseline ambulator with a walker. She had a fall and reports left shoulder and right knee pain. She was diagnosed with a nondisplaced right patella fracture as well as a humeral neck fracture. She is admitted due to ambulatory dysfunction Meds Home Medications and Allergies Home Medications ?Medication ?Instructions ?Recorded ?Confirmed ?Type baclofen 10 mg tablet 10 mg PO BID #0 tabs 02/07/14 06/22/24 History pantoprazole 40 mg tablet,delayed 40 mg PO QDAY ##0 02/07/14 06/22/24 History release (Protonix) buspirone 15 mg tablet 15 mg PO BID #0 tabs 08/15/16 06/22/24 History levothyroxine 25 mcg tablet 25 mcg PO QDAY 05/06/21 06/22/24 History metformin 500 mg tablet,extended 500 mg PO QID 05/06/21 06/22/24 History release 24 hr ondansetron HCl 4 mg tablet 4 mg PO TID PRN Nausea 05/06/21 06/22/24 History sitagliptin phosphate 25 mg tablet 25 mg PO QDAY 05/06/21 06/22/24 History (Januvia) acetaminophen 300 mg-codeine 30 mg 1 tab PO [id number] PRN Pain 06/22/24 06/22/24 History tablet atorvastatin 20 mg tablet 20 mg PO DAILY 06/22/24 06/22/24 History calcitriol 0.25 mcg capsule 0.25 mcg PO DAILY 06/22/24 06/22/24 History empagliflozin 25 mg tablet 25 mg PO DAILY 06/22/24 06/22/24 History (Jardiance) zolpidem 5 mg tablet 5 mg PO HSPRN PRN Sleep 06/22/24 06/22/24 History Allergies Allergy/AdvReac Type Severity Reaction Status Date / Time morphine Allergy Severe VOMITING Verified 06/22/24 01:12 Penicillins Allergy Severe Hives Verified 06/22/24 01:12 adhesive Allergy Intermediate Rash Verified 06/22/24 01:12 Exam Vital Signs Temp Pulse Resp BP Pulse Ox O2 Del Method O2 Flow Rate 97.1 F 82 17 157/86 H 97 Room Air 2 06/23/24 08:00 06/23/24 08:00 06/23/24 08:00 06/23/24 08:00 06/23/24 08:00 06/23/24 08:00 06/22/24 16:00 Additional findings Additional findings: Patient is in no acute distress and is cooperative with the examination today. Patient has a normal mood and affect. Breathing is nonlabored. In no respiratory distress. Left shoulder is diffusely tender. Range of motion was not performed secondary to pain. She has a positive radial ulnar and median nerve distribution that sensation is intact to light touch Right knee is tender to palpation of the patella. She has an intact extensor mechanism. Range of motion is 0 to 105 degrees. X-rays demonstrate a nondisplaced patella fracture. We obtained a repeat lateral and it continues to be nondisplaced. X-rays also demonstrate a humeral neck fracture that is nondisplaced Results - Ortho Labs 06/23/24 04:50 06/23/24 04:50 Labs: Short CBC 06/23/24 Range/Units 04:50 WBC 7.4 (3.6-11.0) Thou/mm3 Hgb 12.5 (12.0-16.0) g/dL Hct 36.8 (36.0-46.0) % Plt Count 171 (140-440) Thou/mm3 BMP 06/23/24 04:50 Sodium 137 Potassium 3.6 Chloride 103 Carbon Dioxide 27.0 BUN 11 Creatinine 0.4 L Glucose 108 H D Calcium 8.9 Assessment & Plan Problem List (1) Fracture of neck of humerus: Status: Acute Assessment and plan: Patient is a 69-year-old female with a left Proximal humerus fracture as well as a right patella fracture. The right patella fracture is nondisplaced and in good position alignment on x-ray. We recommend immobilization and she can be weightbearing as tolerated with the leg locked in extension for approximately 4 to 6 weeks. I will see her in clinic. In addition, she has a left proximal humerus fracture that can also Be treated nonoperatively. She is a poor surgical candidate given her recent stroke and her multiple sclerosis. We will see her in clinic in approximately 2 weeks. - Knee immobilizer hinged knee brace locked in extension for the right knee. She can be weightbearing as tolerated -Left knee should be in a sling (2) Fracture, patella: Status: Acute
[2024-06-23 12:00] VITALS: BP 141/81; PULSE 96; RESP 18; TEMP 36.3; O2SAT 97
--- NOTE | 2024-06-23 14:32 | PC.SS ---
Rounding note: patient continues having pain.
[2024-06-23 16:00] VITALS: BP 151/92; PULSE 89; RESP 19; TEMP 36.3; O2SAT 98
--- NOTE | 2024-06-23 16:06 | PC.NURSE ---
Patient refused breakfast and lunch today. She reported pain with movement. MD notified.
[2024-06-23 16:32] VITALS: BMI 12.0
--- NOTE | 2024-06-23 18:54 | PD.EVENT ---
Documentation for date of: 06/23/24 Event Note Event Note: I have examined the patient, reviewed labs and imaging findings, discussed the case with the resident(s), and reviewed entered orders. I agree with the plan of care as outlined in this note, with these additional summaries/recommendations: Patient is a 69-year-old female with a medical history of CVA, multiple sclerosis, hypertension, dyslipidemia, GERD, and diabetes mellitus type 2 who presented to [facility] emergency department on 06/22/2024 after a ground-level mechanical fall. In the emergency department patient was found to have acute fractures hospital team consulted for continuation of care. Patient seen at bedside. No acute overnight events. Today patient continues to endorse intractable pain requiring IV diluadid. On admission cervical spine was negative for acute fracture. Chest x-ray showed fracture of ninth rib at mid axillary line. Head CT was negative for acute fracture or acute hemorrhage but did reveal multiple old infract's. Bilateral hip x-ray showed no acute hip fracture. X-ray right knee showed stable alignment of inferior patella fracture. Left shoulder x-ray revealed acute fracture of the humeral neck. Patient diagnosed with left humeral neck fracture, right ninth rib fracture, and right knee inferior patella fracture. Orthopedics following. Case management arranged arm sling and knee brace. Patient is reporting intractable pain. Continue oral [place] as needed with IV Dilaudid for breakthrough pain. Continue home Plavix for CAD history. Continue insulin sliding scale for diabetes mellitus type 2. Continue home levothyroxine for hypothyroidism. Patient has history of multiple sclerosis and currently not on any disease modifying therapy but is on baclofen. Patient updated on the plan and in agreement. Repeat hematology and chemistry panel in AM. Dr. Yanes
--- NOTE | 2024-06-23 18:59 | PD.RESPRO ---
Documentation for date of: 06/23/24 Subjective Subjective Interval history: The patient was interviewed and examined at the bedside this morning. She continues to have severe pain over her left upper arm and right knee. She reported her pain is being managed up to 4-12/21 after medications. Exam Vital Signs Temp Pulse Resp BP Pulse Ox O2 Del Method O2 Flow Rate 97.4 F 89 19 151/92 H 98 Nasal Cannula 2 06/23/24 16:00 06/23/24 16:00 06/23/24 16:00 06/23/24 16:06/23/24 16:06/23/24 16:06/23/24 16:00 Narrative Exam General: No acute distress, Alert and Oriented x 3, appeared in pain HEENT: Moist mucous membranes, oropharynx clear Neck: Supple, No masses, No JVD CVS: S1S2 Regular rate and rhythm, No murmurs, rubs or gallops Lungs: Clear to auscultation with no accessory use, no wheeze no rhonchi Abd: Soft, NT/ND, +BS, no organomegaly Ext: No edema, left arm in sling, and mild bruise over rt knee, warm and well perfused Skin: No rash Psych: Appropriate mood and affect Objective Labs 06/23/24 04:50 06/23/24 04:50 Labs: Laboratory Results - last 24 hr 06/23/24 04:50 WBC 7.4 RBC 4.17 Hgb 12.5 Hct 36.8 MCV 88 MCH 30.0 MCHC 34.0 RDW Std Deviation 43.9 Plt Count 171 Neut % (Auto) 58 Lymph % (Auto) 30 [place] % (Auto) 9 Eos % (Auto) 2 Baso % (Auto) 0 Neut # (Auto) 4.3 Lymph # (Auto) 2.2 [place] # (Auto) 0.7 Eos # (Auto) 0.2 Baso # (Auto) 0.0 Immature Gran # (Auto) 0.03 H Absolute Nucleated RBC 0.00 Immature Gran % 0 Nucleated RBC % 0 Sodium 137 Potassium 3.6 Chloride 103 Carbon Dioxide 27.0 Anion Gap 7 BUN 11 Creatinine 0.4 L Estim Creat Clear Calc 108.3 eGFR > 60 BUN/Creatinine Ratio 28 H Glucose 108 H D Calculated Osmolality 274 L Calcium 8.9 Quality Measures Quality Measures none Advance care planning discussed with:: patient Assessment & Plan Assessment Current Active Medications: Generic Name Dose Route Start Last Admin Trade Name Kimberly PRN Reason Stop Dose Admin Acetaminophen 650 mg 06/22/24 06:16 Acetaminophen 325 Mg Tablet PO 07/22/24 06:15 Q6H PRN Fever >101.5 Hydrocodone Bitart/Acetaminophen 1 tab 06/22/24 10:14 06/23/24 12:02 Hydrocodone/Apap 10/325 Tab PO 06/27/24 10:13 1 tab Q6HR PRN Administration PAIN SCALE 4-6(MODERATE) Baclofen 10 mg 06/23/24 15:15 06/23/24 15:56 Baclofen 10 Mg Tablet PO 07/23/24 15:14 10 mg TID ISRA Administration Clopidogrel Bisulfate 75 mg 06/22/24 09:00 06/22/24 09:49 Clopidogrel Bisulfate 75 Mg Tablet PO 07/22/24 08:59 75 mg QDAY ISRA Administration Dextrose 25 ml 06/22/24 06:31 Dextrose 50%-Water Inj 50 Ml Syringe IV 07/22/24 06:30 Q15MIN PRN BG 50-70 responsive npo pt Dextrose 50 ml 06/22/24 06:31 Dextrose 50%-Water Inj 50 Ml Syringe IV 07/22/24 06:30 Q15MIN PRN BG <50 OR BG <70 & pt unresponsive Glucagon 1 mg 06/22/24 06:31 Glucagon Inj 1 Mg Vial IM Q15MIN PRN BG <70, and no IV access Heparin Sodium (Porcine) 5,000 unit 06/22/24 14:00 06/23/24 14:15 Heparin Sod Inj 5000 Unit/Ml Vial SC 07/06/24 13:59 Not Given Q8HR ISRA Hydromorphone HCl 0.5 mg 06/22/24 06:16 06/23/24 15:52 Hydromorphone Inj 2 Mg/Ml Vial IVP 06/27/24 06:15 0.5 mg Q3H PRN Administration PAIN Protocol Insulin Human Lispro 0 unit 06/22/24 07:30 06/23/24 17:07 Insulin Lispro (Admelog) 1 Unit/0.01 Ml Unit SC 07/22/24 07:29 Not Given AC [facility] Protocol Levothyroxine Sodium 25 mcg 06/23/24 06:00 06/23/24 05:03 Levothyroxine Sodium 25 Mcg Tablet PO 07/23/24 05:59 25 mcg ACBR ISRA Administration Melatonin 6 mg 06/22/24 21:00 Melatonin 3 Mg Tablet PO 07/22/24 20:59 HS PRN Insomnia Ondansetron HCl 4 mg 06/22/24 12:04 06/22/24 12:39 Ondansetron Odt 4 Mg Tabrap PO 07/22/24 12:03 4 mg Q6HR PRN Administration NAUSEA OR VOMITING Protocol Pantoprazole Sodium 40 mg 06/22/24 09:00 06/23/24 08:02 Pantoprazole Inj 40 Mg Vial IVP 07/22/24 08:59 40 mg QDAY ISRA Administration Plan 69 F PMH of HTN, DM2, MS and CVA presented with mechanical fall while walking her dog was found to have humeral neck and right patellar fx along with right ninth knee rib fracture # Acute left humeral neck fracture # Acute right patellar fracture # Acute right ninth rib fracture Orthopedic Dr. Gomez consulted for evaluation and management, recommended continuing with supportive management, with pain control, knee brace and arm sling. Pain control: Continue Dilaudid as patient tolerated it in the ED without allergic reaction. Physical therapy consult to assess and plan for future mobility and rehabilitation. # Hypertension/Diabetes Mellitus Currently blood sugars stable, we discontinued sliding scale insulin -We will continue to monitor BMP daily # Multiple Sclerosis (MS) # Cerebrovascular Accident (CVA) history Continue home medications for MS and CVA. DVT prophylaxis: Heparin Diet: Cardiac diet Dispo: adimitted to [facility] for acute Fx of left humeral neck and rt patellar fx including right ninth rib fracture Code: Full code The patient's management plan was discussed with my attending physician MD Marc Addison MD, PGY2 Attending Provider Attestation/Addendum I have examined the patient, reviewed labs and imaging findings, discussed the case with the resident(s), and reviewed entered orders. I agree with the plan of care as outlined in this note, with these additional summaries/recommendations: Patient is a 69-year-old female with a medical history of CVA, multiple sclerosis, hypertension, dyslipidemia, GERD, and diabetes mellitus type [address] [facility] emergency department on 06/22/2024 after a ground-level mechanical fall. In the emergency department patient was found to have acute fractures hospital team consulted for continuation of care. Patient seen at bedside. No acute overnight events. Today patient continues to endorse intractable pain requiring IV diluadid. On admission cervical spine was negative for acute fracture. Chest x-ray showed fracture of ninth rib at mid axillary line. Head CT was negative for acute fracture or acute hemorrhage but did reveal multiple old infract's. Bilateral hip x-ray showed no acute hip fracture. X-ray right knee showed stable alignment of inferior patella fracture. Left shoulder x-ray revealed acute fracture of the humeral neck. Patient diagnosed with left humeral neck fracture, right ninth rib fracture, and right knee inferior patella fracture. Orthopedics following. Case management arranged arm sling and knee brace. Patient is reporting intractable pain. Continue oral [place] as needed with IV Dilaudid for breakthrough pain. Continue home Plavix for CAD history. Continue insulin sliding scale for diabetes mellitus type 2. Continue home levothyroxine for hypothyroidism. Patient has history of multiple sclerosis and currently not on any disease modifying therapy but is on baclofen. Patient updated on the plan and in agreement. Repeat hematology and chemistry panel in AM. Dr. Yanes
[2024-06-23 20:00] VITALS: BP 165/87; PULSE 101; RESP 23; TEMP 36.2; O2SAT 97
[2024-06-24] VITALS (8 sets, daily range): BP systolic 117–172; BP diastolic 70–97; PULSE 94–117; RESP 18–19; TEMP 36.1–36.2; O2SAT 94–98
[2024-06-24] MEDS: HYDROmorphone INJ 2 MG/ML VIAL 0.5 MG IVP ×2 (03:37→06:32)
--- NOTE | 2024-06-24 04:26 | PC.NURSE ---
Dr anna notified of patients blood pressure 172/92 HR 100, dr states he will place an order for hydralazine
[2024-06-24] MEDS: hydrALAZINE INJ 20 MG/ML VIAL 10 MG IV (04:40)
[2024-06-24] MEDS: HYDROcodone/APAP 10/325 TAB PO (04:41)
[2024-06-24] MEDS: LEVOTHYROXINE SODIUM 25 MCG TABLET PO (05:37)
[2024-06-24] MEDS: BACLOFEN 10 MG TABLET PO ×3 (05:37→21:02)
--- NOTE | 2024-06-24 06:06 | PC.NURSE ---
unable to give topical ointment for pain due to pharmacy not being open, Dr anna aware and also notified of pts HR sustaining in the 120's.
[2024-06-24 06:28] LABS: Basophils % (Auto) 0 % (0-2.5); Eosinophils # (Auto) 0.1 Thou/mm3 (0.0-0.5); Eosinophils % (Auto) 1 % (0-10); Hematocrit 41.6 % (36.0-46.0); Hemoglobin 14.1 g/dL (12.0-16.0); Immature Granulocytes % (Auto) 0 % (0-0); Immature Granulocytes Auto 0.03 Thou/mm3 (0.00-0.00); Lymphocytes # (Auto) 2.3 Thou/mm3 (1.0-4.8); Lymphocytes % (Auto) 18 % (10-50); Mean Corpuscular HGB Conc 33.9 g/dl (31.0-37.0); Mean Corpuscular Hemoglobin 29.6 pg (25.0-35.0); Mean Corpuscular Volume 87 fL (80-100); Monocytes # (Auto) 1.1 Thou/mm3 (0.0-0.8); Monocytes % (Auto) 9 % (0-12); Neutrophils # (Auto) 9.2 Thou/mm3 (1.8-7.7); Neutrophils % (Auto) 72 % (37-80); Nucleated Red Blood Cell % 0 /100 WBC (0); Platelet Count 195 Thou/mm3 (140-440); RDW Standard Deviation 42.2 fL (36.4-46.3); Red Blood Count 4.77 Miln/mm3 (4.00-5.20); White Blood Count 12.7 Thou/mm3 (3.6-11.0)
--- NOTE | 2024-06-24 06:42 | PC.NURSE ---
dr islas notified of pt complaining of sever pain 10/10 in her shoulder and feeling like she is bloating . Dr came to bedside and stated it is due to the pain medication she is getting. No new orders at this time.
[2024-06-24 06:59] LABS: Anion Gap 18 (7-16); BUN/Creatinine Ratio 30 Ratio (12-20); Blood Urea Nitrogen 12 mg/dL (9-23); Calcium 9.3 mg/dL (8.3-10.6); Carbon Dioxide 16.1 mMol/L (20.0-31.0); Chloride 100 mMol/L (98-107); Creatinine (Component) 0.4 mg/dL (0.6-1.3); Estimated Creatinine Clearance 108.3 mL/min (>60); Glucose 113 mg/dL (74-106); Magnesium 1.6 mg/dL (1.6-2.6); Osmolality,Calculated 268 (275-295); Phosphorous 2.6 mg/dL (2.4-5.1); Potassium 3.3 mMol/L (3.4-5.1); Sodium 134 mMol/L (136-145); eGFR > 60 See Note
[2024-06-24] MEDS: Magnesium Sulfate 4 GM Ivpb 4 GM/50 ML BAG IV (08:52)
[2024-06-24] MEDS: CLOPIDOGREL BISULFATE 75 MG TABLET PO (08:52)
[2024-06-24] MEDS: POTASSIUM CHLORIDE 10% 20 MEQ/15 ML UDC 40 MEQ PO (08:52)
[2024-06-24] MEDS: ENOXAPARIN SOD INJ 40 MG/0.4 ML SYRINGE SC (08:52)
[2024-06-24] MEDS: PANTOPRAZOLE INJ 40 MG VIAL IVP (08:53)
[2024-06-24] MEDS: ONDANSETRON INJ 2 MG/ML INJ 2 ML 4 MG IV (10:40)
[2024-06-24] MEDS: KETOROLAC INJ 30 MG/ML VIAL IVP ×2 (12:52→19:32)
[2024-06-24] MEDS: ONDANSETRON ODT 4 MG TABRAP PO (12:52)
[2024-06-24] MEDS: HYDROcodone/APAP 5/325 TABLET 1 TAB PO (16:27)
--- NOTE | 2024-06-24 16:37 | PD.RESPRO ---
Documentation for date of: 06/24/24 Subjective Subjective Interval history: The patient was interviewed and examined at the bedside. She reported her pain being much controlled than yesterday. However, she was only able to stand up on her feet yesterday with PT. Exam Vital Signs Temp Pulse Resp BP Pulse Ox O2 Del Method O2 Flow Rate 97.2 F 100 18 117/70 94 L Room Air 2 06/24/24 16:00 06/24/24 16:00 06/24/24 16:00 06/24/24 16:06/24/24 16:06/24/24 16:06/23/24 16:00 Narrative Exam General: No acute distress, Alert and Oriented x 3, appeared in pain HEENT: Moist mucous membranes, oropharynx clear Neck: Supple, No masses, No JVD CVS: S1S2 Regular rate and rhythm, No murmurs, rubs or gallops Lungs: Clear to auscultation with no accessory use, no wheeze no rhonchi Abd: Soft, NT/ND, +BS, no organomegaly Ext: No edema, left arm in sling, and mild bruise over rt knee, warm and well perfused Skin: No rash Psych: Appropriate mood and affect Objective Labs 06/25/24 05:13 06/25/24 05:13 Labs: Laboratory Results - last 24 hr 06/24/24 05:11 WBC 12.7 H D RBC 4.77 Hgb 14.1 Hct 41.6 MCV 87 MCH 29.6 MCHC 33.9 RDW Std Deviation 42.2 Plt Count 195 Neut % (Auto) 72 Lymph % (Auto) 18 [place] % (Auto) 9 Eos % (Auto) 1 Baso % (Auto) 0 Neut # (Auto) 9.2 H Lymph # (Auto) 2.3 [place] # (Auto) 1.1 H Eos # (Auto) 0.1 Baso # (Auto) 0.0 Immature Gran # (Auto) 0.03 H Absolute Nucleated RBC 0.00 Immature Gran % 0 Nucleated RBC % 0 Sodium 134 L Potassium 3.3 L Chloride 100 Carbon Dioxide 16.1 L Anion Gap 18 H BUN 12 Creatinine 0.4 L Estim Creat Clear Calc 108.3 eGFR > 60 BUN/Creatinine Ratio 30 H Glucose 113 H Calculated Osmolality 268 L Calcium 9.3 Phosphorus 2.6 Magnesium 1.6 Quality Measures Quality Measures none Advance care planning discussed with:: patient Assessment & Plan Assessment Current Active Medications: Generic Name Dose Route Start Last Admin Trade Name Freq PRN Reason Stop Dose Admin Acetaminophen 650 mg 06/22/24 06:16 Acetaminophen 325 Mg Tablet PO 07/22/24 06:15 Q6H PRN Fever >101.5 Hydrocodone Bitart/Acetaminophen 1 tab 06/24/24 08:38 06/24/24 16:27 Hydrocodone/Apap 5/325 Tablet PO 06/29/24 08:37 1 tab Q6HR PRN Administration PAIN SCALE 4-6(MODERATE) Baclofen 10 mg 06/23/24 15:15 06/24/24 14:16 Baclofen 10 Mg Tablet PO 07/23/24 15:14 10 mg TID ISRA Administration Clopidogrel Bisulfate 75 mg 06/22/24 09:00 06/24/24 08:52 Clopidogrel Bisulfate 75 Mg Tablet PO 07/22/24 08:59 75 mg QDAY ISRA Administration Diclofenac Sodium 2 gm 06/24/24 05:24 Diclofenac 1% Top Gel 100 Gm Tube TOP 07/24/24 05:59 QID PRN PAIN SCALE 4-10(Mod-Sev Protocol Enoxaparin Sodium 40 mg 06/24/24 09:00 06/24/24 08:52 Enoxaparin Sod Inj 40 Mg/0.4 Ml Syringe SC 07/08/24 08:59 40 mg QDAY ISRA Administration Ketorolac Tromethamine 30 mg 06/24/24 11:09 06/24/24 12:52 Ketorolac Inj 30 Mg/Ml Vial IVP 06/29/24 11:08 30 mg Q6HR PRN Administration PAIN SCALE 7-10 (Severe Lactulose 20 gm 06/24/24 14:30 06/24/24 16:21 Lactulose Syrup 20 Gm/30 Ml Udc PO 07/24/24 14:29 Not Given QDAY ISRA Protocol Levothyroxine Sodium 25 mcg 06/23/24 06:00 06/24/24 05:37 Levothyroxine Sodium 25 Mcg Tablet PO 07/23/24 05:59 25 mcg ACBR ISRA Administration Melatonin 6 mg 06/22/24 21:00 Melatonin 3 Mg Tablet PO 07/22/24 20:59 HS PRN Insomnia Ondansetron HCl 4 mg 06/22/24 12:04 06/24/24 12:52 Ondansetron Odt 4 Mg Tabrap PO 07/22/24 12:03 4 mg Q6HR PRN Administration NAUSEA OR VOMITING Protocol Pantoprazole Sodium 40 mg 06/25/24 09:00 Pantoprazole 40 Mg Tablet PO 07/22/24 08:59 QDAY [facility] Sennosides 1 tab 06/24/24 21:00 Senna Tablet PO 07/24/24 20:59 BID [facility] Protocol Plan 69 F PMH of HTN, DM2, MS and CVA presented with mechanical fall while walking her dog was found to have humeral neck and right patellar fx along with right ninth knee rib fracture # Intractable pain 2/2 # Acute left humeral neck fracture # Acute right patellar fracture # Acute right ninth rib fracture The patient is still complaining of severe pain, unable to tolerate any movement, and she was only able to stand on her feet just for couple seconds yesterday with physical therapist. She is still requiring IV pain meds frequently. We are cutting down on her IV pain meds, and by tomorrow we will try to switch IV pain meds to oral pain meds only. Orthopedic Dr. Gomez consulted for evaluation and management, recommended continuing with supportive management, with pain control, knee brace and arm sling. Pain control: Continue Dilaudid as patient tolerated it in the ED without allergic reaction. Physical therapy consult to assess and plan for future mobility and rehabilitation. # Hypertension/Diabetes Mellitus Currently blood sugars stable, we discontinued sliding scale insulin -We will continue to monitor BMP daily # Multiple Sclerosis (MS) # Cerebrovascular Accident (CVA) history Continue home medications for MS and CVA. DVT prophylaxis: Heparin Diet: Cardiac diet Dispo: adimitted to [facility] for intractable pain 2/2 acute Fx of left humeral neck and rt patellar fx including right ninth rib fracture currently requiring frequent IV pain meds Code: Full code The patient's management plan was discussed with my attending physician MD Marc Addison MD, PGY2 Attending Provider Attestation/Addendum I have examined the patient, reviewed labs and imaging findings, discussed the case with the resident(s), and reviewed entered orders. I agree with the plan of care as outlined in this note, with these additional summaries/recommendations: Patient is a 69-year-old female with a medical history of CVA, multiple sclerosis, hypertension, dyslipidemia, GERD, and diabetes mellitus type 2 who presented to [facility] emergency department on 06/22/2024 after a ground-level mechanical fall. In the emergency department patient was found to have acute fractures hospital team consulted for continuation of care. Patient seen at bedside. No acute overnight events. Today patient continues to endorse intractable pain requiring although slightly improved from yesterday. Discussed with patient that we will discontinue IV Dilaudid today and continue with [place] and add Toradol. If patient experiences severe pain we will give one-time dose of Dilaudid. On admission cervical spine was negative for acute fracture. Chest x-ray showed fracture of ninth rib at mid axillary line. Head CT was negative for acute fracture or acute hemorrhage but did reveal multiple old infract's. Bilateral hip x-ray showed no acute hip fracture. X-ray right knee showed stable alignment of inferior patella fracture. Left shoulder x-ray revealed acute fracture of the humeral neck. Patient diagnosed with left humeral neck fracture, right ninth rib fracture, and right knee inferior patella fracture. Orthopedics following. Case management arranged arm sling and knee brace. Continue oral [place] as needed with IV Toradol. Continue home Plavix for CAD history. Continue insulin sliding scale for diabetes mellitus type 2. Continue home levothyroxine for hypothyroidism. Patient has history of multiple sclerosis and currently not on any disease modifying therapy but is on baclofen. Patient updated on the plan and in agreement. Repeat hematology and chemistry panel in AM. Dr. Yanes
[2024-06-25] VITALS: BP 163/91; PULSE 95; RESP 22; TEMP 36.1; O2SAT 97
[2024-06-25] MEDS: traMADol HCL 50 MG TABLET 100 MG PO (00:22)
[2024-06-25] MEDS: ONDANSETRON ODT 4 MG TABRAP PO ×2 (01:37→14:14)
[2024-06-25 04:00] VITALS: BP 140/79; PULSE 81; RESP 19; TEMP 36.2; O2SAT 97
[2024-06-25] MEDS: KETOROLAC INJ 30 MG/ML VIAL IVP ×3 (04:17→23:19)
[2024-06-25 05:35] LABS: Basophils % (Auto) 0 % (0-2.5); Eosinophils # (Auto) 0.1 Thou/mm3 (0.0-0.5); Eosinophils % (Auto) 1 % (0-10); Hematocrit 42.2 % (36.0-46.0); Hemoglobin 14.1 g/dL (12.0-16.0); Immature Granulocytes % (Auto) 0 % (0-0); Immature Granulocytes Auto 0.04 Thou/mm3 (0.00-0.00); Lymphocytes # (Auto) 1.8 Thou/mm3 (1.0-4.8); Lymphocytes % (Auto) 18 % (10-50); Mean Corpuscular HGB Conc 33.4 g/dl (31.0-37.0); Mean Corpuscular Hemoglobin 29.6 pg (25.0-35.0); Mean Corpuscular Volume 89 fL (80-100); Monocytes % (Auto) 10 % (0-12); Neutrophils # (Auto) 6.9 Thou/mm3 (1.8-7.7); Neutrophils % (Auto) 70 % (37-80); Nucleated Red Blood Cell % 0 /100 WBC (0); Platelet Count 208 Thou/mm3 (140-440); RDW Standard Deviation 44.6 fL (36.4-46.3); Red Blood Count 4.76 Miln/mm3 (4.00-5.20); White Blood Count 9.9 Thou/mm3 (3.6-11.0)
[2024-06-25] MEDS: LEVOTHYROXINE SODIUM 25 MCG TABLET PO (05:53)
[2024-06-25] MEDS: BACLOFEN 10 MG TABLET PO ×3 (05:53→21:07)
[2024-06-25 06:07] LABS: Anion Gap 15 (7-16); BUN/Creatinine Ratio 30 Ratio (12-20); Blood Urea Nitrogen 18 mg/dL (9-23); Calcium 9.6 mg/dL (8.3-10.6); Carbon Dioxide 19.1 mMol/L (20.0-31.0); Chloride 103 mMol/L (98-107); Creatinine (Component) 0.6 mg/dL (0.6-1.3); Estimated Creatinine Clearance 72.2 mL/min (>60); Glucose 143 mg/dL (74-106); Osmolality,Calculated 277 (275-295); Potassium 3.9 mMol/L (3.4-5.1); Sodium 137 mMol/L (136-145); eGFR > 60 See Note
[2024-06-25 08:00] VITALS: BP 119/70; PULSE 104; RESP 18; TEMP 36.2; O2SAT 97
[2024-06-25] MEDS: HYDROcodone/APAP 5/325 TABLET 1 TAB PO (08:05)
[2024-06-25] MEDS: ENOXAPARIN SOD INJ 40 MG/0.4 ML SYRINGE SC (08:05)
[2024-06-25] MEDS: CLOPIDOGREL BISULFATE 75 MG TABLET PO (08:05)
[2024-06-25] MEDS: PANTOPRAZOLE 40 MG TABLET PO (08:05)
[2024-06-25 12:00] VITALS: BP 146/80; PULSE 99; RESP 17; TEMP 36.4; O2SAT 95
[2024-06-25 12:24] VITALS: BMI 11.0
--- NOTE | 2024-06-25 13:59 | PD.RESPRO ---
Documentation for date of: 06/25/24 Subjective Subjective Interval history: Patient was examined bedside this morning, she is still complaining of intractable pain. We will increase the dose of her Providence from 5-7.5, pending PT. Anticipate discharge in next 24-48 hr after pain is more controlled to SNF Exam Vital Signs Temp Pulse Resp BP Pulse Ox O2 Del Method O2 Flow Rate 97.5 F 99 17 146/80 H 95 Room Air 2 06/25/24 12:00 06/25/24 12:00 06/25/24 12:00 06/25/24 12:00 06/25/24 12:00 06/25/24 12:00 06/23/24 16:00 Narrative Exam General: No acute distress, Alert and Oriented x 3, appeared in pain HEENT: Moist mucous membranes, oropharynx clear Neck: Supple, No masses, No JVD CVS: S1S2 Regular rate and rhythm, No murmurs, rubs or gallops Lungs: Clear to auscultation with no accessory use, no wheeze no rhonchi Abd: Soft, NT/ND, +BS, no organomegaly Ext: No edema, left arm in sling, and mild bruise over rt knee, warm and well perfused Skin: No rash Psych: Appropriate mood and affect Objective Labs 06/25/24 05:13 06/25/24 05:13 Labs: Laboratory Results - last 24 hr 06/25/24 05:13 WBC 9.9 RBC 4.76 Hgb 14.1 Hct 42.2 MCV 89 MCH 29.6 MCHC 33.4 RDW Std Deviation 44.6 Plt Count 208 Neut % (Auto) 70 Lymph % (Auto) 18 [place] % (Auto) 10 Eos % (Auto) 1 Baso % (Auto) 0 Neut # (Auto) 6.9 Lymph # (Auto) 1.8 [place] # (Auto) 1.0 H Eos # (Auto) 0.1 Baso # (Auto) 0.0 Immature Gran # (Auto) 0.04 H Absolute Nucleated RBC 0.00 Immature Gran % 0 Nucleated RBC % 0 Sodium 137 Potassium 3.9 D Chloride 103 Carbon Dioxide 19.1 L Anion Gap 15 BUN 18 Creatinine 0.6 Estim Creat Clear Calc 72.2 eGFR > 60 BUN/Creatinine Ratio 30 H Glucose 143 H Calculated Osmolality 277 Calcium 9.6 Quality Measures Quality Measures none Advance care planning discussed with:: patient Assessment & Plan Assessment Current Active Medications: Generic Name Dose Route Start Last Admin Trade Name Freq PRN Reason Stop Dose Admin Acetaminophen 650 mg 06/22/24 06:16 Acetaminophen 325 Mg Tablet PO 07/22/24 06:15 Q6H PRN Fever >101.5 Hydrocodone Bitart/Acetaminophen 1 tab 06/25/24 14:00 Hydrocodone/Apap 7.5/325 Tablet PO 06/30/24 13:59 Q6HR PRN PAIN SCALE 4-6 (Moderate Baclofen 10 mg 06/23/24 15:15 06/25/24 13:44 Baclofen 10 Mg Tablet PO 07/23/24 15:14 10 mg TID ISRA Administration Clopidogrel Bisulfate 75 mg 06/22/24 09:00 06/25/24 08:05 Clopidogrel Bisulfate 75 Mg Tablet PO 07/22/24 08:59 75 mg QDAY ISRA Administration Diclofenac Sodium 2 gm 06/24/24 05:24 Diclofenac 1% Top Gel 100 Gm Tube TOP 07/24/24 05:59 QID PRN PAIN SCALE 4-10(Mod-Sev Protocol Enoxaparin Sodium 40 mg 06/24/24 09:00 06/25/24 08:05 Enoxaparin Sod Inj 40 Mg/0.4 Ml Syringe SC 07/08/24 08:59 40 mg QDAY ISRA Administration Ketorolac Tromethamine 30 mg 06/24/24 11:09 06/25/24 10:58 Ketorolac Inj 30 Mg/Ml Vial IVP 06/29/24 11:08 30 mg Q6HR PRN Administration PAIN SCALE 7-10 (Severe Lactulose 20 gm 06/24/24 14:30 06/25/24 08:06 Lactulose Syrup 20 Gm/30 Ml Udc PO 07/24/24 14:29 Not Given QDAY ISRA Protocol Levothyroxine Sodium 25 mcg 06/23/24 06:00 06/25/24 05:53 Levothyroxine Sodium 25 Mcg Tablet PO 07/23/24 05:59 25 mcg ACBR ISRA Administration Melatonin 6 mg 06/22/24 21:00 Melatonin 3 Mg Tablet PO 07/22/24 20:59 HS PRN Insomnia Ondansetron HCl 4 mg 06/22/24 12:04 06/25/24 01:37 Ondansetron Odt 4 Mg Tabrap PO 07/22/24 12:03 4 mg Q6HR PRN Administration NAUSEA OR VOMITING Protocol Pantoprazole Sodium 40 mg 06/25/24 09:00 06/25/24 08:05 Pantoprazole 40 Mg Tablet PO 07/22/24 08:59 40 mg QDAY ISRA Administration Sennosides 1 tab 06/24/24 21:00 06/25/24 08:06 Senna Tablet PO 07/24/24 20:59 Not Given BID ISRA Protocol Plan 69 F PMH of HTN, DM2, MS and CVA presented with mechanical fall while walking her dog was found to have humeral neck and right patellar fx along with right ninth knee rib fracture # Intractable pain 2/2 # Acute left humeral neck fracture # Acute right patellar fracture # Acute right ninth rib fracture -Chest x-ray showed fracture of ninth rib at mid axillary line. -Head CT was negative for acute fracture or acute hemorrhage but did reveal multiple old infract's. -Bilateral hip x-ray showed no acute hip fracture. -X-ray right knee showed stable alignment of inferior patella fracture. -Left shoulder x-ray revealed acute fracture of the humeral neck. -Orthopedic Dr. Gomez consulted for evaluation and management, recommended continuing with supportive management, with pain control, knee brace and arm sling. -Pain control: Discontinued Diludid, increased her norco to 7.5 from 5 Q 6hr and ketoralac 20 mg iv Q 6 hr -Physical therapy consult to assess and plan for future mobility and rehabilitation. -We will continue to monitor BMP daily -She will be discharged to SNF , she does not a good support at home. # Hypertension/Diabetes Mellitus -Currently blood sugars stable, we discontinued sliding scale insulin # Multiple Sclerosis (MS) # Cerebrovascular Accident (CVA) history -Continue home plavix -Continue home baclofen #Hypothyrodism -continue home levothyroxine DVT prophylaxis:Levonox Diet: Cardiac diet Dispo: adimitted to medsurg for intractable pain 2/2 acute Fx of left humeral neck and rt patellar fx including right ninth rib fracture currently requiring frequent IV pain meds, pending SNF Code: Full code Discussed the patient with my attending Daniel Tilley MD,PGY-3 Attending Provider Attestation/Addendum I have examined the patient, reviewed labs and imaging findings, discussed the case with the resident(s), and reviewed entered orders. I agree with the plan of care as outlined in this note, with these additional summaries/recommendations: Patient is a 69-year-old female with a medical history of CVA, multiple sclerosis, hypertension, dyslipidemia, GERD, and diabetes mellitus type 2 who presented to [facility] emergency department on 06/22/2024 after a ground-level mechanical fall. In the emergency department patient was found to have acute fractures hospital team consulted for continuation of care. Patient seen at bedside. No acute overnight events. Today patient continues to endorse intractable pain requiring IV pain medicine and states pain is 9/10 at rest and 10/10 with any movement. Continue toradol, [place], and IV diluadid for breakthrough pain. Anticipate discharge in the next 24 to 48 hours if able to wean to oral regimen. On admission cervical spine was negative for acute fracture. Chest x-ray showed fracture of ninth rib at mid axillary line. Head CT was negative for acute fracture or acute hemorrhage but did reveal multiple old infract's. Bilateral hip x-ray showed no acute hip fracture. X-ray right knee showed stable alignment of inferior patella fracture. Left shoulder x-ray revealed acute fracture of the humeral neck. Patient diagnosed with left humeral neck fracture, right ninth rib fracture, and right knee inferior patella fracture. Orthopedics following. Case management arranged arm sling and knee brace. Continue home Plavix for CAD history. Continue insulin sliding scale for diabetes mellitus type 2. Continue home levothyroxine for hypothyroidism. Patient has history of multiple sclerosis and currently not on any disease modifying therapy but is on baclofen. Patient updated on the plan and in agreement. Repeat hematology and chemistry panel in AM. Dr. Yanes
[2024-06-25 16:00] VITALS: BP 111/82; PULSE 107; RESP 18; TEMP 36.3; O2SAT 96
[2024-06-25] MEDS: HYDROcodone/APAP 7.5/325 TABLET 1 TAB PO (19:26)
[2024-06-25 20:00] VITALS: BP 137/93; PULSE 111; RESP 21; TEMP 36.2; O2SAT 97
[2024-06-26] VITALS: BP 150/80; PULSE 93; RESP 17; TEMP 36.1; O2SAT 94
[2024-06-26] MEDS: HYDROcodone/APAP 7.5/325 TABLET 1 TAB PO (03:33)
[2024-06-26 04:00] VITALS: BP 131/85; PULSE 89; RESP 17; TEMP 36.3; O2SAT 96
[2024-06-26] MEDS: BACLOFEN 10 MG TABLET PO ×3 (05:24→21:43)
[2024-06-26] MEDS: LEVOTHYROXINE SODIUM 25 MCG TABLET PO (05:24)
[2024-06-26 08:00] VITALS: BP 147/79; PULSE 89; RESP 16; TEMP 36.1; O2SAT 97
[2024-06-26] MEDS: KETOROLAC INJ 30 MG/ML VIAL IVP (08:38)
[2024-06-26] MEDS: PANTOPRAZOLE 40 MG TABLET PO (08:41)
[2024-06-26] MEDS: CLOPIDOGREL BISULFATE 75 MG TABLET PO (08:41)
[2024-06-26] MEDS: SENNA TABLET 1 TAB PO (08:47)
[2024-06-26] MEDS: ONDANSETRON ODT 4 MG TABRAP PO ×2 (08:47→14:37)
--- NOTE | 2024-06-26 08:58 | PC.NURSE ---
Patient is complaining that she doesn't know what she is feeling. She feel thinks she is confused and hallucinating. Patient vomited yellowish vomitous around 200 cc. Upon assessment patient is alert and oriented. Her blood sugar is 156. BP is 210/143. MD notified. BP was rechecked again after patient vomited and it was down to 179/93. Orders were given. Latest BP 153/97.
--- NOTE | 2024-06-26 09:40 | ESDS_ITS ---
<Statement entered by Daniel Wilkins MD - 06/26/24 15:56> I discussed with and supervised my co-resident involved in the care of this patient. I agree with the assessment and plan as documented above. Daniel Wilkins,PGY-3 Disclaimer: Despite multiple revisions, due to the dictation software being used, the document below may not be free of grammatical errors including phonetic/typographic errors. However, this does not deter from our commitment to providing health care in the patient's best interest in mind. Planned Discharge Date 06/26/24 DS: Providers Provider Date of admission: 06/22/24 06:16 Primary care physician: Pawan Cr MD Admitting Provider: Donnell Bhardwaj MD Attending Provider on Admission: Wade Yanes MD Consults: 06/22/24 06:38 Consult to Orthopedic Routine Comment: fracture Consulting Provider: Billy Gomez 06/22/24 10:21 Referral Physical Therapy Routine Comment: Physician Instructions: Attending Provider on DC: Wade Yanes MD Discharging Provider: Wade Yanes MD DS: Diagnosis Problem List Completed Was Problem List Reviewed/Reconciled?: Yes Hospital Course Hospital Course Hospital course: 69-year-old female with past medical history of multiple sclerosis, hypertension, DM2, and CVA was admitted to the hospital on 06/22/2024 due to acute left humeral neck fracture, right patellar fracture, and right ninth rib fracture secondary to mechanical fall. In the ED patient came in with complaints that she is tripped over while walking and landed on her left upper extremity. Initially patient was hypertensive and afebrile. Initial labs were unremarkable and initial imaging included cervical spine CT which was unremarkable, chest x-ray which showed acute fracture of right ninth rib, knee x-ray showed right acute patellar fracture, shoulder x-ray which showed left humeral neck fracture, elbow x-ray was unremarkable, head CT showed old infarcts, and hip/pelvis x-ray was unremarkable, wrist x-ray was unremarkable. Orthopedic surgeon was consulted given multiple fractures and recommend the patient to have immobilization of the right knee with weightbearing as tolerated on locked like extension for 4 to 6 weeks. Orthopedic surgery also stated that the patient is humeral fracture could be treated nonoperatively and that they would see her in the clinic 2 weeks after discharge. During patient's hospital stay patient did have intractable pain requiring increased dosages of pain medication with Dilaudid and [place]. Patient also developed some nausea likely due to pain as well as medications. At the time of discharge patient was stable enough [facility]. Discharge plan: ? Please follow-up with primary care physician in 1 week after discharge. ? Please follow-up with orthopedic surgeon Dr. Gomez in 1 to 2 weeks after discharge. ? Please continue wearing knee immobilizing and arm swing. - We have prescribed hydrocodone-acetaminophen 7.5-325 mg 1 table by mouth every 6 hours as needed for pain. - We have prescribed ibuprofen 400mg every 8 hours as needed for pain. - Started on aspirin 81mg twice daily for 20 days for DVT prophylaxis, then continue once daily -Continue all other prescribed medications as prescribed. -Please come back to the ER if symptoms persist or worsen. Problem list: # Intractable pain 2/ # Acute left humeral neck fracture # Acute right patellar fracture # Acute right ninth rib fracture # Hypertension/Diabetes Mellitus # Multiple Sclerosis (MS) # Cerebrovascular Accident (CVA) history #Hypothyrodism Case disclosed with Attending Dr. Yanes and My senior Dr. Wilkins PGY3. Kelvin Logan PGY1 Status at Discharge Overall status at discharge: patient is progressing back to baseline Time Spent with Patient Time attestation: Total time spent providing and/or coordinating discharge services:>35 min Exam Vital Signs Temp Pulse Resp BP Pulse Ox O2 Del Method O2 Flow Rate 97 F 89 16 147/79 H 97 Room Air 2 06/26/24 08:00 06/26/24 08:00 06/26/24 08:00 06/26/24 08:00 06/26/24 08:00 06/26/24 08:00 06/23/24 16:00 Narrative Exam General: A/O x3, in mild discomfort Eyes: PERRL, EOMI. Anicteric, vision grossly intact. Ears: No ear pain, no ear discharge, Hearing grossly intact. Nose: No nasal discharge. Mouth/Throat: Dry mucous membranes, very poor dentation, no redness, no lesions. Neck: Neck supple, non-tender, no cervical lymphadenopathy. Lungs: Clear VIBHA to auscultation and percussion, No accessory muscle use. Cardio: Normal S1/S2, regular rhythm, no murmurs, no JVD Abdomen: Soft, non-tender, no palpable masses, peristalsis present, no guarding or rebound. Extremities: Symmetrical, no significant deformities, no peripheral edema , non-tender, peripheral pulses presents, RLE immobilizer in place, left upper extremity bruise Skin: No rashes, no lesions, warm to touch. Neuro: No focal neurological deficits. motor and sensory intact Discharge Plan Plan Patient Disposition: Xfer Skilled Nsg Fac (SNF) Care Plan Goals: ? Please follow-up with primary care physician in 1 week after discharge. ? Please follow-up with orthopedic surgeon Dr. Gomez in 1 to 2 weeks after discharge. ? Please continue wearing knee immobilizing and arm swing. - We have prescribed hydrocodone-acetaminophen 7.5-325 mg 1 table by mouth every 6 hours as needed for pain. - We have prescribed ibuprofen 400mg every 8 hours as needed for pain. - Started on aspirin 81mg twice daily for 20 days for DVT prophylaxis, then continue once daily -Continue with all other prescribed medications as prescribed. -Please come back to the ER if symptoms persist or worsen. Prescriptions/Referrals Prescriptions/Med Rec: New hydrocodone-acetaminophen 7.5-325 mg tablet 1 tab PO Q6H MDD 4 PRN (Reason: pain) 15 Days Qty: 30 0RF ibuprofen 400 mg tablet 400 mg PO Q8H PRN (Reason: fever) 20 Days Qty: 30 0RF aspirin 81 mg tablet,delayed release (DR/EC) 81 mg PO HS Qty: 20 0RF Continued baclofen 10 MG tablet 10 mg PO BID Qty: 0 pantoprazole [Protonix] 40 MG tablet,delayed release (DR/EC) 40 mg PO QDAY Qty: 0 Patient Comments: TO SUPPRESS GASTRIC SECRETIONS buspirone 15 mg Tablet 15 mg PO BID Qty: 0 ondansetron HCl 4 mg tablet 4 mg PO TID PRN (Reason: Nausea) levothyroxine 25 mcg tablet 25 mcg PO QDAY metformin 500 mg tablet extended release 24 hr 500 mg PO QID Januvia 25 mg tablet 25 mg PO QDAY aspirin 81 mg Tablet,Delayed Release (Dr/Ec) 81 mg PO QDAY Qty: 0 0RF meclizine 25 mg tablet 25 mg PO TID Qty: 90 0RF Hold Instructions: untill see pcp clopidogrel 75 mg tablet 75 mg PO QDAY Qty: 30 0RF zolpidem 5 mg tablet 5 mg PO HSPRN PRN (Reason: Sleep) Patient Comments: TAKE 1 TABLET BY MOUTH AT BEDTIME NEEDED FOR INSOMNIA acetaminophen-codeine 300-30 mg tablet 1 tab PO [id number] PRN (Reason: Pain) Patient Comments: TAKE 1 TABLET BY MOUTH EVERY 6 HOURS NEEDED FOR PAIN atorvastatin 20 mg tablet 20 mg PO DAILY Patient Comments: TAKE 1 TABLET BY MOUTH EVERY DAY calcitriol 0.25 mcg capsule 0.25 mcg PO DAILY Patient Comments: TAKE 1 CAPSULE BY MOUTH EVERY DAY Jardiance 25 mg tablet 25 mg PO DAILY Patient Comments: TAKE 1 TABLET BY MOUTH EVERY MORNING Referrals: Pawan Cr MD [Primary Care Provider] - Billy Gomez MD [Physician] - Patient/Caregiver Discharge Instructions Discharge Activity: as per physical therapy Other Discharge Activity Instructions:: ? Please follow-up with primary care physician in 1 week after discharge. ? Please follow-up with orthopedic surgeon Dr. Gomez in 1 to 2 weeks after discharge. ? Please continue wearing knee immobilizing and arm swing. - We have prescribed hydrocodone-acetaminophen 7.5-325 mg 1 table by mouth every 6 hours as needed for pain. - We have prescribed ibuprofen 400mg every 8 hours as needed for pain. - Started on aspirin 81mg twice daily for 20 days for DVT prophylaxis, then continue once daily -Continue all other prescribed medications as prescribed. -Please come back to the ER if symptoms persist or worsen. Education Materials: Common Types of Fractures, ED Fracture, Knee, ED Fracture, Shoulder Print Language: [place] Stand Alone Forms: [employer] Award Info., Patient Portal Info Letter Discharge Order Discharge Orders: Discharge (Routine); Ordered 06/26/24 Ordered By: Marc Medellin Quality Discharge Quality Measures VTE prophylaxis Attestestation MD Attestation I have examined the patient, reviewed labs and imaging findings, discussed the case with the resident(s), and reviewed entered orders. I agree with the plan of care as outlined in this note. Dr. Yanes
--- NOTE | 2024-06-26 10:49 | PC.SS ---
Addendum entered by Aruna Robert, [employer] CHANNEL OPENER 06/27/24 12:35: SS update: spoke with Ramona Trivedi at [facility]. Ramona requested updated PT note from yesterday. Sent via [employer]. Provided her with patient's grand daughters contact information and insurance information via previous SS notes. Addendum entered by Dian Maxwell 06/26/24 15:06: [facility] accepted and working on auth. Short term rehab. SS provided contact information to facility. [phone] Original Note: Follow up note: SS met with patient who confirmed she wants to d/c to SNF. Her preference is [facility]. Patient states her granddaughter has a new phone number and she does not know it. However, we can contact her daughter who is listed on demographics. SS will verify if anything was submitted on [employer] as well as [employer].
[2024-06-26 12:00] VITALS: BP 149/86; PULSE 94; RESP 17; TEMP 36.3; O2SAT 96
[2024-06-26] MEDS: MECLIZINE HCL 25 MG TABLET PO (12:28)
[2024-06-26 14:59] VITALS: BMI 11.0; BMI 12.0
[2024-06-26 16:00] VITALS: BP 140/88; PULSE 106; RESP 18; TEMP 36.4; O2SAT 96
[2024-06-26 20:00] VITALS: BP 141/93; PULSE 114; RESP 17; TEMP 36.5; O2SAT 97
[2024-06-27] VITALS: BP 139/85; PULSE 109; RESP 18; TEMP 36.4; O2SAT 96
[2024-06-27] MEDS: ONDANSETRON ODT 4 MG TABRAP PO (00:21)
--- NOTE | 2024-06-27 00:43 | PC.NURSE ---
Pt haven't had any urine output post catheter removal. This RN did bladder scan on pt and notify MD Jones that pt have 241ml of urine retention. said to do another bladder scan after 4hrs.
[2024-06-27] MEDS: ACETAMINOPHEN 325 MG TABLET 650 MG PO ×2 (03:00→23:09)
[2024-06-27 04:00] VITALS: BP 128/79; PULSE 104; RESP 17; TEMP 36.7; O2SAT 96
[2024-06-27] MEDS: BACLOFEN 10 MG TABLET PO ×3 (05:15→21:21)
[2024-06-27] MEDS: LEVOTHYROXINE SODIUM 25 MCG TABLET PO (05:15)
[2024-06-27 08:00] VITALS: BP 123/84; PULSE 96; RESP 18; TEMP 35.9; O2SAT 97
--- NOTE | 2024-06-27 08:38 | PC.SS ---
Addendum entered by ANA MARIA Storm 06/27/24 15:31: Contacted [facility]- , was informed patient was been inactive with them since 07/14/23. Addendum entered by ANA MARIA Storm 06/27/24 14:29: Ramona Trivedi at [facility] returned call, informs she is working on patient's authorization. Ramona provided patient's insurance contact information- [facility] . Attempted contact with [facility] , was informed that they are not the assigned provider for the patient. Left a voicemail for Ramona at [facility] to make aware. Addendum entered by ANA MARIA Storm 06/27/24 11:42: SS follow up: attempted contact with Kassidy Chino and Ramona Trivedi at [facility]. Left them both a voicemail requesting call back with update on status. Original Note: SS follow up: contacted [facility] for an update, staff informs they will have Jenifer give me a call back with current update.
[2024-06-27 09:41] LABS: Basophils % (Auto) 0 % (0-2.5); Eosinophils # (Auto) 0.2 Thou/mm3 (0.0-0.5); Eosinophils % (Auto) 2 % (0-10); Hematocrit 41.7 % (36.0-46.0); Hemoglobin 14.2 g/dL (12.0-16.0); Immature Granulocytes % (Auto) 0 % (0-0); Immature Granulocytes Auto 0.02 Thou/mm3 (0.00-0.00); Lymphocytes # (Auto) 2.7 Thou/mm3 (1.0-4.8); Lymphocytes % (Auto) 28 % (10-50); Mean Corpuscular HGB Conc 34.1 g/dl (31.0-37.0); Mean Corpuscular Hemoglobin 29.7 pg (25.0-35.0); Mean Corpuscular Volume 87 fL (80-100); Monocytes # (Auto) 1.1 Thou/mm3 (0.0-0.8); Monocytes % (Auto) 11 % (0-12); Neutrophils # (Auto) 5.8 Thou/mm3 (1.8-7.7); Neutrophils % (Auto) 59 % (37-80); Nucleated Red Blood Cell % 0 /100 WBC (0); Platelet Count 262 Thou/mm3 (140-440); RDW Standard Deviation 44.5 fL (36.4-46.3); Red Blood Count 4.78 Miln/mm3 (4.00-5.20); White Blood Count 9.7 Thou/mm3 (3.6-11.0)
[2024-06-27] MEDS: CLOPIDOGREL BISULFATE 75 MG TABLET PO (09:46)
[2024-06-27] MEDS: PANTOPRAZOLE 40 MG TABLET PO (09:46)
[2024-06-27] MEDS: HYDROcodone/APAP 7.5/325 TABLET 1 TAB PO (09:55)
[2024-06-27 10:02] LABS: Alanine Aminotransferase 35 U/L (10-49); Albumin, Serum 4.4 gm/dL (3.4-4.8); Albumin/Globulin Ratio 1.5 (1.2-2.2); Alkaline Phosphatase 86 U/L (46-116); Anion Gap 11 (7-16); Aspartate Amino Transferase 28 U/L (0-34); BUN/Creatinine Ratio 35 Ratio (12-20); Bilirubin,Total 0.8 mg/dL (0.3-1.2); Blood Urea Nitrogen 21 mg/dL (9-23); Calcium 9.6 mg/dL (8.3-10.6); Calcium (Corrected) 9.6 mg/dL (8.5-10.1); Carbon Dioxide 23.9 mMol/L (20.0-31.0); Chloride 103 mMol/L (98-107); Creatinine (Component) 0.6 mg/dL (0.6-1.3); Estimated Creatinine Clearance 72.2 mL/min (>60); Glucose 218 mg/dL (74-106); Magnesium 1.9 mg/dL (1.6-2.6); Osmolality,Calculated 285 (275-295); Potassium 3.3 mMol/L (3.4-5.1); Sodium 138 mMol/L (136-145); Total Protein 7.4 gm/dL (5.7-8.2); eGFR > 60 See Note
[2024-06-27 12:00] VITALS: BP 147/87; PULSE 87; RESP 18; TEMP 36; O2SAT 96
[2024-06-27] MEDS: POTASSIUM CHLORIDE 20 mEq TABCR 40 MEQ PO (12:25)
[2024-06-27] MEDS: MECLIZINE HCL 25 MG TABLET PO ×2 (13:18→21:22)
--- NOTE | 2024-06-27 13:51 | ESDS_ITS ---
<Statement entered by Daniel Wilkins MD - 06/27/24 13:54> Patient was stable to discharge yesterday, pending insurance authorization for SNF. I discussed with and supervised my co-resident involved in the care of this patient. I agree with the assessment and plan as documented above. Daniel Wilkins,PGY-3 Disclaimer: Despite multiple revisions, due to the dictation software being used, the document below may not be free of grammatical errors including phonetic/typographic errors. However, this does not deter from our commitment to providing health care in the patient's best interest in mind. Planned Discharge Date 06/27/24 DS: Providers Provider Date of admission: 06/22/24 06:16 Primary care physician: Pawan Cr MD Admitting Provider: Donnell Bhardwaj MD Attending Provider on Admission: Wade Yanes MD Consults: 06/22/24 06:38 Consult to Orthopedic Routine Comment: fracture Consulting Provider: Billy Gomez 06/22/24 10:21 Referral Physical Therapy Routine Comment: Physician Instructions: Attending Provider on DC: Wade Yanes MD Discharging Provider: Wade Yanes MD DS: Diagnosis Problem List Completed Was Problem List Reviewed/Reconciled?: Yes Hospital Course Hospital Course Hospital course: 69-year-old female with past medical history of multiple sclerosis, hypertension, DM2, and CVA was admitted to the hospital on 06/22/2024 due to acute left humeral neck fracture, right patellar fracture, and right ninth rib fracture secondary to mechanical fall. In the ED patient came in with c omplaints that she is tripped over while walking and landed on her left upper extremity. Initially patient was hypertensive and afebrile. Initial labs were unremarkable and initial imaging included cervical spine CT which was unremarkable, chest x-ray which showed acute fracture of right ninth rib, knee x-ray showed right acute patellar fracture, shoulder x-ray which showed left humeral neck fracture, elbow x-ray was unremarkable, head CT showed old infarcts, and hip/pelvis x-ray was unremarkable, wrist x-ray was unremarkable. Orthopedic surgeon was consulted given multiple fractures and recommend the patient to have immobilization of the right knee with weightbearing as tolerated on locked like extension for 4 to 6 weeks. Orthopedic surgery also stated that the patient is humeral fracture could be treated nonoperatively and that they would see her in the clinic 2 weeks after discharge. During patient's hospital stay patient did have intractable pain requiring increased dosages of pain medication with Dilaudid and [place]. Patient also developed some nausea likely due to pain as well as medications. At the time of discharge patient was stable enough to be [facility]. Patient failed discharge due to insurance authorization, labs were ordered and noted low potassium which was repleted. [place] dosage was decreased. Discharge plan: ? Please follow-up with primary care physician in 1 week after discharge. ? Please follow-up with orthopedic surgeon Dr. Gomez in 1 to 2 weeks after discharge. ? Please continue wearing knee immobilizing and arm swing. - We have prescribed hydrocodone-acetaminophen 7.5-325 mg 1 table by mouth every 6 hours as needed for pain. - We have prescribed ibuprofen 400mg every 8 hours as needed for pain. - Started on aspirin 81mg twice daily for 20 days for DVT prophylaxis, then continue once daily -Continue all other prescribed medications as prescribed. -Please come back to the ER if symptoms persist or worsen. Problem list: # Intractable pain 2/2 # Acute left humeral neck fracture # Acute right patellar fracture # Acute right ninth rib fracture # Hypertension/Diabetes Mellitus # Multiple Sclerosis (MS) # Cerebrovascular Accident (CVA) history #Hypothyrodism #Hypokalemia Case disclosed with Attending Dr. Yanes and My senior Dr. Wilkins PGY3. Kelvin Logan PGY1 Status at Discharge Overall status at discharge: patient is progressing back to baseline Time Spent with Patient Time attestation: Total time spent providing and/or coordinating discharge services:>35 min Exam Vital Signs Temp Pulse Resp BP Pulse Ox O2 Del Method O2 Flow Rate 96.8 F 87 18 147/87 H 96 Room Air 2 06/27/24 12:00 06/27/24 12:06/27/24 12:06/27/24 12:06/27/24 12:06/27/24 12:06/23/24 16:00 Narrative Exam General: A/O x3, in no acute distress Eyes: PERRL, EOMI. Anicteric, vision grossly intact. Ears: No ear pain, no ear discharge, Hearing grossly intact. Nose: No nasal discharge. Mouth/Throat: Dry mucous membranes, very poor dentation, no redness, no lesions. Neck: Neck supple, non-tender, no cervical lymphadenopathy. Lungs: Clear VIBHA to auscultation and percussion, No accessory muscle use. Cardio: Normal S1/S2, regular rhythm, no murmurs, no JVD Abdomen: Soft, non-tender, no palpable masses, peristalsis present, no guarding or rebound. Extremities: Symmetrical, no significant deformities, no peripheral edema , non-tender, peripheral pulses presents, RLE immobilizer in place, left upper extremity bruise Skin: No rashes, no lesions, warm to touch. Neuro: No focal neurological deficits. motor and sensory intact Discharge Plan Plan Patient Disposition: Xfer Skilled Nsg Fac (SNF) Care Plan Goals: ? Please follow-up with primary care physician in 1 week after discharge. ? Please follow-up with orthopedic surgeon Dr. Gomez in 1 to 2 weeks after discharge. ? Please continue wearing knee immobilizing and arm swing. - We have prescribed hydrocodone-acetaminophen 7.5-325 mg 1 table by mouth every 6 hours as needed for pain. - We have prescribed ibuprofen 400mg every 8 hours as needed for pain. - Started on aspirin 81mg twice daily for 20 days for DVT prophylaxis, then continue once daily -Continue with all other prescribed medications as prescribed. -Please come back to the ER if symptoms persist or worsen. Prescriptions/Referrals Prescriptions/Med Rec: New hydrocodone-acetaminophen 7.5-325 mg tablet 1 tab PO Q6H MDD 4 PRN (Reason: pain) 15 Days Qty: 30 0RF ibuprofen 400 mg tablet 400 mg PO Q8H PRN (Reason: fever) 20 Days Qty: 30 0RF aspirin 81 mg tablet,delayed release (DR/EC) 81 mg PO HS Qty: 20 0RF Continued baclofen 10 MG tablet 10 mg PO BID Qty: 0 pantoprazole [Protonix] 40 MG tablet,delayed release (DR/EC) 40 mg PO QDAY Qty: 0 Patient Comments: TO SUPPRESS GASTRIC SECRETIONS buspirone 15 mg Tablet 15 mg PO BID Qty: 0 ondansetron HCl 4 mg tablet 4 mg PO TID PRN (Reason: Nausea) levothyroxine 25 mcg tablet 25 mcg PO QDAY metformin 500 mg tablet extended release 24 hr 500 mg PO QID Januvia 25 mg tablet 25 mg PO QDAY aspirin 81 mg Tablet,Delayed Release (Dr/Ec) 81 mg PO QDAY Qty: 0 0RF meclizine 25 mg tablet 25 mg PO TID Qty: 90 0RF Hold Instructions: untill see pcp clopidogrel 75 mg tablet 75 mg PO QDAY Qty: 30 0RF zolpidem 5 mg tablet 5 mg PO HSPRN PRN (Reason: Sleep) Patient Comments: TAKE 1 TABLET BY MOUTH AT BEDTIME NEEDED FOR INSOMNIA acetaminophen-codeine 300-30 mg tablet 1 tab PO [id number] PRN (Reason: Pain) Patient Comments: TAKE 1 TABLET BY MOUTH EVERY 6 HOURS NEEDED FOR PAIN atorvastatin 20 mg tablet 20 mg PO DAILY Patient Comments: TAKE 1 TABLET BY MOUTH EVERY DAY calcitriol 0.25 mcg capsule 0.25 mcg PO DAILY Patient Comments: TAKE 1 CAPSULE BY MOUTH EVERY DAY Jardiance 25 mg tablet 25 mg PO DAILY Patient Comments: TAKE 1 TABLET BY MOUTH EVERY MORNING Referrals: Pawan Cr MD [Primary Care Provider] - Billy Gomez MD [Physician] - Patient/Caregiver Discharge Instructions Discharge Activity: as per physical therapy Other Discharge Activity Instructions:: ? Please follow-up with primary care physician in 1 week after discharge. ? Please follow-up with orthopedic surgeon Dr. Gomez in 1 to 2 weeks after discharge. ? Please continue wearing knee immobilizing and arm swing. - We have prescribed hydrocodone-acetaminophen 7.5-325 mg 1 table by mouth every 6 hours as needed for pain. - We have prescribed ibuprofen 400mg every 8 hours as needed for pain. - Started on aspirin 81mg twice daily for 20 days for DVT prophylaxis, then continue once daily -Continue all other prescribed medications as prescribed. -Please come back to the ER if symptoms persist or worsen. Education Materials: Common Types of Fractures, ED Fracture, Knee, ED Fracture, Shoulder Print Language: Mongolian Stand Alone Forms: [employer] Info., Patient Portal Info Letter Discharge Order Discharge Orders: Discharge (Routine); Ordered 06/30/24 Ordered By: Marc Medellin Quality Discharge Quality Measures VTE prophylaxis Attestestation Attestation I have examined the patient, reviewed labs and imaging findings, discussed the case with the resident(s), and reviewed entered orders. I agree with the plan of care as outlined in this note. Dr. Yanes
[2024-06-27 16:00] VITALS: BP 135/86; PULSE 92; RESP 18; TEMP 36; O2SAT 96
--- NOTE | 2024-06-27 16:00 | PC.SS ---
SS follow up note; SS contacted [employer] and they provided SS with [employer] contact number who is the environmental health sanitarian [phone]. SS left voicemail with contact number. SS will stand by for further needs.
--- NOTE | 2024-06-27 17:11 | PC.SS ---
SS follow up: spoke with Tameka with at . She informs no clinicals have been received to [facility] to fax clinicals to .
[2024-06-27 20:00] VITALS: BP 140/74; PULSE 95; RESP 19; TEMP 36.1; O2SAT 94
[2024-06-27] MEDS: SENNA TABLET 1 TAB PO (21:21)
[2024-06-28] VITALS: BP 122/80; PULSE 95; RESP 18; TEMP 37.2; O2SAT 97
[2024-06-28 04:00] VITALS: BP 130/84; PULSE 90; RESP 16; TEMP 36.4; O2SAT 96
[2024-06-28] MEDS: ACETAMINOPHEN 325 MG TABLET 650 MG PO ×3 (05:28→20:18)
[2024-06-28] MEDS: MECLIZINE HCL 25 MG TABLET PO ×3 (05:29→21:20)
[2024-06-28] MEDS: LEVOTHYROXINE SODIUM 25 MCG TABLET PO (05:29)
[2024-06-28] MEDS: BACLOFEN 10 MG TABLET PO ×3 (05:29→21:20)
[2024-06-28 08:00] VITALS: BP 144/92; PULSE 95; RESP 18; TEMP 36.7; O2SAT 97
[2024-06-28] MEDS: CLOPIDOGREL BISULFATE 75 MG TABLET PO (09:40)
[2024-06-28] MEDS: PANTOPRAZOLE 40 MG TABLET PO (09:40)
[2024-06-28 10:01] LABS: Alanine Aminotransferase 31 U/L (10-49); Albumin, Serum 4.2 gm/dL (3.4-4.8); Albumin/Globulin Ratio 1.4 (1.2-2.2); Alkaline Phosphatase 82 U/L (46-116); Anion Gap 9 (7-16); Aspartate Amino Transferase 21 U/L (0-34); BUN/Creatinine Ratio 37 Ratio (12-20); Bilirubin,Total 0.8 mg/dL (0.3-1.2); Blood Urea Nitrogen 22 mg/dL (9-23); Calcium 9.6 mg/dL (8.3-10.6); Calcium (Corrected) 9.6 mg/dL (8.5-10.1); Carbon Dioxide 23.6 mMol/L (20.0-31.0); Chloride 104 mMol/L (98-107); Creatinine (Component) 0.6 mg/dL (0.6-1.3); Estimated Creatinine Clearance 72.2 mL/min (>60); Glucose 293 mg/dL (74-106); Osmolality,Calculated 288 (275-295); Potassium 3.7 mMol/L (3.4-5.1); Sodium 137 mMol/L (136-145); Total Protein 7.2 gm/dL (5.7-8.2); eGFR > 60 See Note
--- NOTE | 2024-06-28 10:02 | PC.SS ---
Addendum entered by ANA MARIA Storm 06/28/24 13:51: Sent updated PT note to [facility] via [employer] to provide to patent's insurance. Patient's insurance to review notes to determine if able to give authorization. Ramona at [facility] working on this inquiry. Addendum entered by ANA MARIA Storm 06/28/24 11:37: Received call from patient's insurance, they are requesting SNF facility to fax them their contact information, fax, contact number, NPI of facility,NPI of PCP who will be following, ICD10 code for admission and updated clinicals if any. Provided Ramona with [facility] this information and fax number: . Original Note: SS follow up: Attempted contact with at , provided voicemail as they were unavailable. Provided Ramona at [facility] the contact information for follow up as well on insurance authorization.
--- NOTE | 2024-06-28 11:06 | ESDS_ITS ---
<Statement entered by Annabella Mayer MD - 07/03/24 07:58> I reviewed above note and agree with findings and plans. I have also personally examined the patient with medicine team and went over assessment and plan with medical team including supply chain intern and resident physician. <Statement entered by Daniel Wilkins MD - 06/28/24 21:44> I discussed with and supervised my co-resident involved in the care of this patient. I agree with the assessment and plan as documented above. Daniel Wilkins,PGY-3 Disclaimer: Despite multiple revisions, due to the dictation software being used, the document below may not be free of grammatical errors including phonetic/typographic errors. However, this does not deter from our commitment to providing health care in the patient's best interest in mind. Planned Discharge Date 06/28/24 DS: Providers Provider Date of admission: 06/22/24 06:16 Primary care physician: Pawan Cr MD Admitting Provider: Donnell Bhardwaj MD Attending Provider on Admission: Wade Yanes MD Consults: 06/22/24 06:38 Consult to Orthopedic Routine Comment: fracture Consulting Provider: Billy Gomez 06/22/24 10:21 Referral Physical Therapy Routine Comment: Physician Instructions: Attending Provider on DC: Annabella Mayer MD Discharging Provider: Annabella Mayer MD DS: Diagnosis Problem List Completed Was Problem List Reviewed/Reconciled?: Yes Hospital Course Hospital Course Hospital course: 69-year-old female with past medical history of multiple sclerosis, hypertension, DM2, and CVA was admitted to the hospital on 06/22/2024 due to acute left humeral neck fracture, right patellar fracture, and right ninth rib fracture secondary to mechanical fall. In the ED patient came in with complaints that she is tripped over while walking and landed on her left upper extremity. Initially patient was hypertensive and afebrile. Initial labs were unremarkable and initial imaging included cervical spine CT which was unremarkable, chest x-ray which showed acute fracture of right ninth rib, knee x-ray showed right acute patellar fracture, shoulder x-ray which showed left humeral neck fracture, elbow x-ray was unremarkable, head CT showed old infarcts, and hip/pelvis x-ray was unremarkable, wrist x-ray was unremarkable. Orthopedic surgeon was consulted given multiple fractures and recommend the patient to have immobilization of the right knee with weightbearing as tolerated on locked like extension for 4 to 6 weeks. Orthopedic surgery also stated that the patient is humeral fracture could be treated nonoperatively and that they would see her in the clinic 2 weeks after discharge. During patient's hospital stay patient did have intractable pain requiring increased dosages of pain medication with Dilaudid and [place]. Patient also developed some nausea likely due to pain as well as medications. At the time of discharge patient was stable enough to be discharged to a longterm facility for further physical therapy. 06/27/2024: Patient failed discharge due to insurance authorization, labs were ordered and noted low potassium which was repleted. [place] dosage was decreased. 06/28/2024: Again patient failed discharge due to insurance authorization, CMP was ordered to follow-up on patient's low potassium from yesterday and it was within normal limits at this time. Patient is stable with no complaints at this time. Discharge plan: ? Please follow-up with primary care physician in 1 week after discharge. ? Please follow-up with orthopedic surgeon Dr. Gomez in 1 to 2 weeks after discharge. ? Please continue wearing knee immobilizing and arm swing. - We have prescribed hydrocodone-acetaminophen 7.5-325 mg 1 table by mouth every 6 hours as needed for pain. - We have prescribed ibuprofen 400mg every 8 hours as needed for pain. - Started on aspirin 81mg twice daily for 20 days for DVT prophylaxis, then continue once daily -Continue all other prescribed medications as prescribed. -Please come back to the ER if symptoms persist or worsen. Problem list: # Intractable pain 2/2 # Acute left humeral neck fracture # Acute right patellar fracture # Acute right ninth rib fracture # Hypertension/Diabetes Mellitus # Multiple Sclerosis (MS) # Cerebrovascular Accident (CVA) history #Hypothyrodism #Hypokalemia Case disclosed with Attending Dr. Mayer and My senior Dr. Wilkins PGY3. Kelvin Logan PGY1 Status at Discharge Overall status at discharge: patient is progressing back to baseline Time Spent with Patient Time attestation: Total time spent providing and/or coordinating discharge services: >35 min Exam Vital Signs Temp Pulse Resp BP Pulse Ox O2 Del Method O2 Flow Rate 98.0 F 95 18 144/92 H 97 Room Air 2 06/28/24 08:00 06/28/24 08:00 06/28/24 08:00 06/28/24 08:00 06/28/24 08:00 06/28/24 08:00 06/23/24 16:00 Narrative Exam General: A/O x3, in no acute distress Eyes: PERRL, EOMI. Anicteric, vision grossly intact. Ears: No ear pain, no ear discharge, Hearing grossly intact. Nose: No nasal discharge. Mouth/Throat: Dry mucous membranes, very poor dentation, no redness, no lesions. Neck: Neck supple, non-tender, no cervical lymphadenopathy. Lungs: Clear VIBHA to auscultation and percussion, No accessory muscle use. Cardio: Normal S1/S2, regular rhythm, no murmurs, no JVD Abdomen: Soft, non-tender, no palpable masses, peristalsis present, no guarding or rebound. Extremities: Symmetrical, no significant deformities, no peripheral edema , non-tender, peripheral pulses presents, RLE immobilizer in place, left upper extremity bruise, improving Skin: No rashes, no lesions, warm to touch. Neuro: No focal neurological deficits. motor and sensory intact Discharge Plan Plan Patient Disposition: Xfer Skilled Nsg Fac (SNF) Care Plan Goals: ? Please follow-up with primary care physician in 1 week after discharge. ? Please follow-up with orthopedic surgeon Dr. Gomez in 1 to 2 weeks after discharge. ? Please continue wearing knee immobilizing and arm swing. - We have prescribed hydrocodone-acetaminophen 7.5-325 mg 1 table by mouth every 6 hours as needed for pain. - We have prescribed ibuprofen 400mg every 8 hours as needed for pain. - Started on aspirin 81mg twice daily for 20 days for DVT prophylaxis, then continue once daily -Continue with all other prescribed medications as prescribed. -Please come back to the ER if symptoms persist or worsen. Prescriptions/Referrals Prescriptions/Med Rec: New hydrocodone-acetaminophen 7.5-325 mg tablet 1 tab PO Q6H MDD 4 PRN (Reason: pain) 15 Days Qty: 30 0RF ibuprofen 400 mg tablet 400 mg PO Q8H PRN (Reason: fever) 20 Days Qty: 30 0RF aspirin 81 mg tablet,delayed release (DR/EC) 81 mg PO HS Qty: 20 0RF Continued baclofen 10 MG tablet 10 mg PO BID Qty: 0 pantoprazole [Protonix] 40 MG tablet,delayed release (DR/EC) 40 mg PO QDAY Qty: 0 Patient Comments: TO SUPPRESS GASTRIC SECRETIONS buspirone 15 mg Tablet 15 mg PO BID Qty: 0 ondansetron HCl 4 mg tablet 4 mg PO TID PRN (Reason: Nausea) levothyroxine 25 mcg tablet 25 mcg PO QDAY metformin 500 mg tablet extended release 24 hr 500 mg PO QID Januvia 25 mg tablet 25 mg PO QDAY aspirin 81 mg Tablet,Delayed Release (Dr/Ec) 81 mg PO QDAY Qty: 0 0RF meclizine 25 mg tablet 25 mg PO TID Qty: 90 0RF Hold Instructions: untill see pcp clopidogrel 75 mg tablet 75 mg PO QDAY Qty: 30 0RF zolpidem 5 mg tablet 5 mg PO HSPRN PRN (Reason: Sleep) Patient Comments: TAKE 1 TABLET BY MOUTH AT BEDTIME NEEDED FOR INSOMNIA acetaminophen-codeine 300-30 mg tablet 1 tab PO [id number] PRN (Reason: Pain) Patient Comments: TAKE 1 TABLET BY MOUTH EVERY 6 HOURS NEEDED FOR PAIN atorvastatin 20 mg tablet 20 mg PO DAILY Patient Comments: TAKE 1 TABLET BY MOUTH EVERY DAY calcitriol 0.25 mcg capsule 0.25 mcg PO DAILY Patient Comments: TAKE 1 CAPSULE BY MOUTH EVERY DAY Jardiance 25 mg tablet 25 mg PO DAILY Patient Comments: TAKE 1 TABLET BY MOUTH EVERY MORNING Referrals: Pawan Cr MD [Primary Care Provider] - Billy Gomez MD [Physician] - Patient/Caregiver Discharge Instructions Discharge Activity: as per physical therapy Other Discharge Activity Instructions:: ? Please follow-up with primary care physician in 1 week after discharge. ? Please follow-up with orthopedic surgeon Dr. Gomez in 1 to 2 weeks after discharge. ? Please continue wearing knee immobilizing and arm swing. - We have prescribed hydrocodone-acetaminophen 7.5-325 mg 1 table by mouth every 6 hours as needed for pain. - We have prescribed ibuprofen 400mg every 8 hours as needed for pain. - Started on aspirin 81mg twice daily for 20 days for DVT prophylaxis, then continue once daily -Continue all other prescribed medications as prescribed. -Please come back to the ER if symptoms persist or worsen. Education Materials: Common Types of Fractures, ED Fracture, Knee, ED Fracture, Shoulder Print Language: Albanian Stand Alone Forms: [employer] Info., Patient Portal Info Letter Discharge Order Discharge Orders: Discharge (Routine); Ordered 06/26/24 Ordered By: Marc Medellin Quality Discharge Quality Measures VTE prophylaxis
[2024-06-28 12:00] VITALS: BP 140/87; PULSE 94; RESP 17; TEMP 37.1; O2SAT 96
[2024-06-28 12:52] VITALS: BMI 13.0
--- NOTE | 2024-06-28 14:33 | PC.SS ---
Rounding note: patient ready for discharge, authorization for SNF is pending.
[2024-06-28 16:00] VITALS: BP 142/78; PULSE 96; RESP 16; TEMP 36.7; O2SAT 96
[2024-06-28 16:07] VITALS: BMI 25.4
[2024-06-28 20:00] VITALS: BP 121/80; PULSE 107; RESP 19; TEMP 37.1; O2SAT 96
[2024-06-28] MEDS: DICLOFENAC 1% TOP GEL 100 GM TUBE TOP (20:24)
[2024-06-28] MEDS: SENNA TABLET 1 TAB PO (21:20)
[2024-06-29] VITALS: BP 125/88; PULSE 104; RESP 17; TEMP 36.5; O2SAT 96
[2024-06-29 04:00] VITALS: BP 104/71; PULSE 89; RESP 19; TEMP 36.6; O2SAT 96
[2024-06-29] MEDS: DICLOFENAC 1% TOP GEL 100 GM TUBE TOP ×2 (04:38→20:27)
[2024-06-29] MEDS: ACETAMINOPHEN 325 MG TABLET 650 MG PO ×2 (04:38→20:26)
[2024-06-29] MEDS: LEVOTHYROXINE SODIUM 25 MCG TABLET PO (05:27)
[2024-06-29] MEDS: BACLOFEN 10 MG TABLET PO ×3 (05:27→21:18)
[2024-06-29] MEDS: MECLIZINE HCL 25 MG TABLET PO ×3 (05:27→21:18)
[2024-06-29 07:50] VITALS: BP 132/79; PULSE 91; RESP 18; TEMP 36.2; O2SAT 96
--- NOTE | 2024-06-29 08:33 | PC.SS ---
Addendum entered by ANA MARIA Storm 06/29/24 16:58: SS follow up: spoke with patient's daughter, Musa Carl to discuss if she wanted to select a contracted SNF aligned with patient's insurance or take the patient home as she is ready for discharge. Presented the options of contracted facilities to her and she selected [facility]. Notified Ramona at [facility] to make aware of her choice. Reached out to Zakia at [facility]. Zakia informed she is willing to accept the patient and faxed her the patient's clinicals. Informed Zakia she would need to fax the patient's insurance the facility information and she verbalized understanding. Provided insurance information as listed below: Contact: Rosaura ext [phone] Addendum entered by ANA MARIA Storm 06/29/24 14:53: Jasmyn at [facility] informed me that the patient's insurance reach out and are reviewing who will give authorization for the patient as patient's medicare and medi-blessing are being both managed by her insurance. Ramona informed she is waiting for a call back from the patient's insurance to give response. Addendum entered by ANA MARIA Storm 06/29/24 13:48: Received a call from the patient's insurance, Rosaura ext [phone]. She informed that the reason patient was denied to [facility] was due to not being contracted in-network. Rosaura provided contracted SNF's in [facility] to be [facility], [facility], [facility], [facility] and [facility]. Rosaura informed authorization could be given to one of these facilities if the family would like and SNF would need to fax their information if willing to accept. . Attempted to contact the patient's daughter, Musa Carl to make aware. Left a voicemail and sent message to return call to make aware. Addendum entered by ANA MARIA Storm 06/29/24 13:35: Received a call from Ramona at [facility] earlier informing that the authorization for SNF was denied. Ramona informed that the facility could try to get authorization through the patient's secondary insurance if the family was agreeable. Notified the patient and she wanted her daughter Musa to be contacted to make aware and to discuss the plan. Spoke with patient's daughter, Musa Carl to make aware. She also spoke with [facility] staff Mayela and wants to proceed with attempting to get authorization under the patient's secondary insurance as they did not have someone at home who could help care for the patient at this time. Ramona at [facility] is starting that process today with the secondary insurance. Addendum entered by ANA MARIA Storm 06/29/24 09:58: Received call back from patient's insurance spoke with Diane, she informed it could take up to 72 business hours from yesterdays date for authorization. The current status is: pending. Notified Ramona at [facility] on this update. Original Note: SS follow up: Per Ramona at [facility], no updates yet on insurance authorization for SNF. LACE TEARING SUPERVISOR attempted contact with at , provided voicemail as they were unavailable.
[2024-06-29] MEDS: CLOPIDOGREL BISULFATE 75 MG TABLET PO (08:51)
[2024-06-29] MEDS: PANTOPRAZOLE 40 MG TABLET PO (08:51)
--- NOTE | 2024-06-29 11:12 | ESDS_ITS ---
<Statement entered by Annabella Mayer MD - 07/04/24 12:10> I reviewed above note and agree with findings and plans. I have also personally examined the patient with medicine team and went over assessment and plan with medical team including project intern and resident physician. Planned Discharge Date 06/29/24 DS: Providers Provider Date of admission: 06/22/24 06:16 Primary care physician: Pawan Cr MD Admitting Provider: Donnell Bhardwaj MD Attending Provider on Admission: Annabella Mayer MD Consults: 06/22/24 06:38 Consult to Orthopedic Routine Comment: fracture Consulting Provider: Billy Gomez 06/22/24 10:21 Referral Physical Therapy Routine Comment: Physician Instructions: Attending Provider on DC: Annabella Mayer MD Discharging Provider: Annabella Mayer MD DS: Diagnosis Problem List Completed Was Problem List Reviewed/Reconciled?: Yes Hospital Course Hospital Course Hospital course: 69-year-old female with past medical history of multiple sclerosis, hypertension, DM2, and CVA was admitted to the hospital on 06/22/2024 due to acute left humeral neck fracture, right patellar fracture, and right ninth rib fracture secondary to mechanical fall. In the ED patient came in with complaints that she is tripped over while walking and landed on her left upper extremity. Initially patient was hypertensive and afebrile. Initial labs were unremarkable and initial imaging included cervical spine CT which was unremarkable, chest x-ray which showed acute fracture of right ninth rib, knee x-ray showed right acute patellar fracture, shoulder x-ray which showed left humeral neck fracture, elbow x-ray was unremarkable, head CT showed old infarcts, and hip/pelvis x-ray was unremarkable, wrist x-ray was unremarkable. Orthopedic surgeon was consulted given multiple fractures and recommend the patient to have immobilization of the right knee with weightbearing as tolerated on locked like extension for 4 to 6 weeks. Orthopedic surgery also stated that the patient is humeral fracture could be treated nonoperatively and that they would see her in the clinic 2 weeks after discharge. During patient's hospital stay patient did have intractable pain requiring increased dosages of pain medication with Dilaudid and Linden. Patient also developed some nausea likely due to pain as well as medications. At the time of discharge patient was stable enough to be discharged to a fdc facility for further physical therapy. 06/27/2024: Patient failed discharge due to insurance authorization, labs were ordered and noted low potassium which was repleted. Linden dosage was decreased. 06/28/2024: Again patient failed discharge due to insurance authorization, CMP was ordered to follow-up on patient's low potassium from yesterday and it was within normal limits at this time. Patient is stable with no complaints at this time. 06/29/2024: Again failed discharge to the insurance authorization. Patient seen at bedside this morning. No overnight events. Patient today was a little bit more irritable as she states that she does not like the hospital food and the nurses have been taking little bit more time to attend to her. Otherwise patient is stable with no other complaints. Discharge plan: ? Please follow-up with primary care physician in 1 week after discharge. ? Please follow-up with orthopedic surgeon Dr. Gomez in 1 to 2 weeks after discharge. ? Please continue wearing knee immobilizing and arm swing. - We have prescribed hydrocodone-acetaminophen 7.5-325 mg 1 table by mouth every 6 hours as needed for pain. - We have prescribed ibuprofen 400mg every 8 hours as needed for pain. - Started on aspirin 81mg twice daily for 20 days for DVT prophylaxis, then continue once daily -Continue all other prescribed medications as prescribed. -Please come back to the ER if symptoms persist or worsen. Problem list: # Intractable pain 2/2 # Acute left humeral neck fracture # Acute right patellar fracture # Acute right ninth rib fracture # Hypertension/Diabetes Mellitus # Multiple Sclerosis (MS) # Cerebrovascular Accident (CVA) history #Hypothyrodism #Hypokalemia Case disclosed with Attending Dr. Mayer and My senior Dr. Medellin PGY2. Kelvin Logan PGY1 Senior Resident Attestation: I discussed with and supervised the project intern physician involved in the care of this patient. I personally saw and examined the patient and discussed the assessment and plan with the entire medicine team, including my attending. I agree with the discharge plan as documented above. Marc Medellin MD PGY2 Internal Medicine Status at Discharge Overall status at discharge: patient is progressing back to baseline Time Spent with Patient Time attestation: Total time spent providing and/or coordinating discharge services:>35 min Exam Vital Signs Temp Pulse Resp BP Pulse Ox O2 Del Method O2 Flow Rate 97.1 F 91 18 132/79 H 96 Room Air 2 06/29/24 07:50 06/29/24 07:50 06/29/24 07:50 06/29/24 07:50 06/29/24 07:50 06/29/24 07:50 06/23/24 16:00 Narrative Exam General: A/O x3, in no acute distress, irritable Eyes: PERRL, EOMI. Anicteric, vision grossly intact. Ears: No ear pain, no ear discharge, Hearing grossly intact. Nose: No nasal discharge. Mouth/Throat: Dry mucous membranes, very poor dentation, no redness, no lesions. Neck: Neck supple, non-tender, no cervical lymphadenopathy. Lungs: Clear VIBHA to auscultation and percussion, No accessory muscle use. Cardio: Normal S1/S2, regular rhythm, no murmurs, no JVD Abdomen: Soft, non-tender, no palpable masses, peristalsis present, no guarding or rebound. Extremities: Symmetrical, no significant deformities, no peripheral edema , non-tender, peripheral pulses presents, RLE immobilizer in place, left upper extremity bruise, improving Skin: No rashes, no lesions, warm to touch. Neuro: No focal neurological deficits. motor and sensory intact Discharge Plan Plan Patient Disposition: Xfer Skilled [facility] (SNF) Care Plan Goals: ? Please follow-up with primary care physician in 1 week after discharge. ? Please follow-up with orthopedic surgeon Dr. Gomez in 1 to 2 weeks after discharge. ? Please continue wearing knee immobilizing and arm swing. - We have prescribed hydrocodone-acetaminophen 7.5-325 mg 1 table by mouth every 6 hours as needed for pain. - We have prescribed ibuprofen 400mg every 8 hours as needed for pain. - Started on aspirin 81mg twice daily for 20 days for DVT prophylaxis, then continue once daily -Continue with all other prescribed medications as prescribed. -Please come back to the ER if symptoms persist or worsen. Prescriptions/Referrals Prescriptions/Med Rec: New hydrocodone-acetaminophen 7.5-325 mg tablet 1 tab PO Q6H MDD 4 PRN (Reason: pain) 15 Days Qty: 30 0RF ibuprofen 400 mg tablet 400 mg PO Q8H PRN (Reason: fever) 20 Days Qty: 30 0RF aspirin 81 mg tablet,delayed release (DR/EC) 81 mg PO HS Qty: 20 0RF Continued baclofen 10 MG tablet 10 mg PO BID Qty: 0 pantoprazole [Protonix] 40 MG tablet,delayed release (DR/EC) 40 mg PO QDAY Qty: 0 Patient Comments: TO SUPPRESS GASTRIC SECRETIONS buspirone 15 mg Tablet 15 mg PO BID Qty: 0 ondansetron HCl 4 mg tablet 4 mg PO TID PRN (Reason: Nausea) levothyroxine 25 mcg tablet 25 mcg PO QDAY metformin 500 mg tablet extended release 24 hr 500 mg PO QID Januvia 25 mg tablet 25 mg PO QDAY aspirin 81 mg Tablet,Delayed Release (Dr/Ec) 81 mg PO QDAY Qty: 0 0RF meclizine 25 mg tablet 25 mg PO TID Qty: 90 0RF Hold Instructions: untill see pcp clopidogrel 75 mg tablet 75 mg PO QDAY Qty: 30 0RF zolpidem 5 mg tablet 5 mg PO HSPRN PRN (Reason: Sleep) Patient Comments: TAKE 1 TABLET BY MOUTH AT BEDTIME NEEDED FOR INSOMNIA acetaminophen-codeine 300-30 mg tablet 1 tab PO [id number] PRN (Reason: Pain) Patient Comments: TAKE 1 TABLET BY MOUTH EVERY 6 HOURS NEEDED FOR PAIN atorvastatin 20 mg tablet 20 mg PO DAILY Patient Comments: TAKE 1 TABLET BY MOUTH EVERY DAY calcitriol 0.25 mcg capsule 0.25 mcg PO DAILY Patient Comments: TAKE 1 CAPSULE BY MOUTH EVERY DAY Jardiance 25 mg tablet 25 mg PO DAILY Patient Comments: TAKE 1 TABLET BY MOUTH EVERY MORNING Referrals: Pawan Cr MD [Primary Care Provider] - Billy Gomez MD [Physician] - Patient/Caregiver Discharge Instructions Discharge Activity: as per physical therapy Other Discharge Activity Instructions:: ? Please follow-up with primary care physician in 1 week after discharge. ? Please follow-up with orthopedic surgeon Dr. Gomez in 1 to 2 weeks after discharge. ? Please continue wearing knee immobilizing and arm swing. - We have prescribed hydrocodone-acetaminophen 7.5-325 mg 1 table by mouth every 6 hours as needed for pain. - We have prescribed ibuprofen 400mg every 8 hours as needed for pain. - Started on aspirin 81mg twice daily for 20 days for DVT prophylaxis, then continue once daily -Continue all other prescribed medications as prescribed. -Please come back to the ER if symptoms persist or worsen. Education Materials: Common Types of Fractures, ED Fracture, Knee, ED Fracture, Shoulder Print Language: Wolof Stand Alone Forms: [employer]oda Award Info., Patient Portal Info Letter Discharge Order Discharge Orders: Discharge (Routine); Ordered 06/26/24 Ordered By: Marc Medellin Quality Discharge Quality Measures VTE prophylaxis
[2024-06-29 11:38] VITALS: BP 124/88; PULSE 71; RESP 18; TEMP 36.1; O2SAT 96
[2024-06-29 15:28] VITALS: BMI 13.0
[2024-06-29 16:00] VITALS: BP 121/89; PULSE 109; RESP 19; TEMP 37.1; O2SAT 97
[2024-06-29 20:00] VITALS: BP 122/72; PULSE 88; RESP 18; TEMP 36.8; O2SAT 95
[2024-06-29] MEDS: SENNA TABLET 1 TAB PO (20:27)
[2024-06-30] VITALS: BP 119/77; PULSE 109; RESP 18; TEMP 36.8; O2SAT 96
[2024-06-30] MEDS: ACETAMINOPHEN 325 MG TABLET 650 MG PO (02:46)
[2024-06-30 04:00] VITALS: BP 129/80; PULSE 91; RESP 17; TEMP 36.8; O2SAT 94
[2024-06-30] MEDS: BACLOFEN 10 MG TABLET PO ×2 (05:08→14:18)
[2024-06-30] MEDS: LEVOTHYROXINE SODIUM 25 MCG TABLET PO (05:08)
[2024-06-30] MEDS: MECLIZINE HCL 25 MG TABLET PO ×2 (05:08→14:18)
[2024-06-30 08:00] VITALS: BP 151/91; PULSE 87; RESP 17; TEMP 36.1; O2SAT 98
[2024-06-30] MEDS: CLOPIDOGREL BISULFATE 75 MG TABLET PO (08:36)
[2024-06-30] MEDS: PANTOPRAZOLE 40 MG TABLET PO (08:36)
[2024-06-30] MEDS: HYDROcodone/APAP 5/325 TABLET 1 TAB PO (08:40)
[2024-06-30] MEDS: DICLOFENAC 1% TOP GEL 100 GM TUBE TOP ×2 (08:48→19:18)
--- NOTE | 2024-06-30 08:50 | PC.SS ---
Addendum entered by ANA MARIA Storm 06/30/24 16:02: Patient is agreeable with d/c to [facility]. Contacted patient's daughter Musa to make aware. Contacted [facility] and was informed patient is not aligned with their services as not active. Patient informed she will need transport to SNF. [facility] contacted and ETA is 7:45pm. Bed side nurse and SNF is aware. Patient aware. Addendum entered by ANA MARIA Storm 06/30/24 14:55: Received a call from Zakia at [facility], she informed she obtained authorization for the patient to discharge to SNF today. Notified Dr. Medellin. Addendum entered by ANA MARIA Storm 06/30/24 11:14: SS update: Provided Rosaura with patient's latest PT note and SNF's information. Patient's insurance is reviewing clinicals to determine if authorization can be provided to [facility]. Original Note: SS follow up: Spoke with Zakia at [facility] she is willing to accept the patient today if the insurance gives the facility authorization. Attempted contact with the insurance with Rosaura at ext [phone] to make aware of accepting facility, she was unavailable and voicemail was provided.
--- NOTE | 2024-06-30 10:06 | ESDS_ITS ---
<Statement entered by Annabella Mayer MD - 07/04/24 12:16> I reviewed above note and agree with findings and plans. I have also personally examined the patient with medicine team and went over assessment and plan with medical team including geotechnical intern and resident physician. Planned Discharge Date 06/30/24 DS: Providers Provider Date of admission: 06/22/24 06:16 Primary care physician: Pawan Cr MD Admitting Provider: Donnell Bhardwaj MD Attending Provider on Admission: Annabella Mayer MD Consults: 06/22/24 06:38 Consult to Orthopedic Routine Comment: fracture Consulting Provider: Billy Gomez 06/22/24 10:21 Referral Physical Therapy Routine Comment: Physician Instructions: Attending Provider on DC: Annabella Mayer MD Discharging Provider: Annabella Mayer MD DS: Diagnosis Problem List Completed Was Problem List Reviewed/Reconciled?: Yes Hospital Course Hospital Course Hospital course: 69-year-old female with past medical history of multiple sclerosis, hypertension, DM2, and CVA was admitted to the hospital on 06/22/2024 due to acute left humeral neck fracture, right patellar fracture, and right ninth rib fracture secondary to mechanical fall. In the ED patient came in with complaints that she is tripped over while walking and landed on her left upper extremity. Initially patient was hypertensive and afebrile. Initial labs were unremarkable and initial imaging included cervical spine CT which was unremarkable, chest x-ray which showed acute fracture of right ninth rib, knee x-ray showed right acute patellar fracture, shoulder x-ray which showed left humeral neck fracture, elbow x-ray was unremarkable, head CT showed old infarcts, and hip/pelvis x-ray was unremarkable, wrist x-ray was unremarkable. Orthopedic surgeon was consulted given multiple fractures and recommend the patient to have immobilization of the right knee with weightbearing as tolerated on locked like extension for 4 to 6 weeks. Orthopedic surgery also stated that the patient is humeral fracture could be treated nonoperatively and that they would see her in the clinic 2 weeks after discharge. During patient's hospital stay patient did have intractable pain requiring increased dosages of pain medication with Dilaudid and Taconite. Patient also developed some nausea likely due to pain as well as medications. At the time of discharge patient was stable enough to be discharged to a snf facility for further physical therapy. 06/27/2024: Patient failed discharge due to insurance authorization, labs were ordered and noted low potassium which was repleted. Taconite dosage was decreased. 06/28/2024: Again patient failed discharge due to insurance authorization, CMP was ordered to follow-up on patient's low potassium from yesterday and it was within normal limits at this time. Patient is stable with no complaints at this time. 06/29/2024: Again failed discharge to the insurance authorization. Patient seen at bedside this morning. No overnight events. Patient today was a little bit more irritable as she states that she does not like the hospital food and the nurses have been taking little bit more time to attend to her. Otherwise patient is stable with no other complaints. 06/30/2024: Patient was seen at bedside this morning. No overnight events. Patient again failed discharge due to pending insurance authorization. Patient stated that her pain is more well-controlled now with the addition of Taconite and that as well balance that she does not get dizzy or nauseated. No other complaints at this time. Discharge plan: ? Please follow-up with primary care physician in 1 week after discharge. ? Please follow-up with orthopedic surgeon Dr. Gomez in 1 to 2 weeks after discharge. ? Please continue wearing knee immobilizing and arm swing. - We have prescribed hydrocodone-acetaminophen 7.5-325 mg 1 table by mouth every 6 hours as needed for pain. - We have prescribed ibuprofen 400mg every 8 hours as needed for pain. - Started on aspirin 81mg twice daily for 20 days for DVT prophylaxis, then continue once daily -Continue all other prescribed medications as prescribed. -Please come back to the ER if symptoms persist or worsen. Problem list: # Intractable pain 2/2 # Acute left humeral neck fracture # Acute right patellar fracture # Acute right ninth rib fracture # Hypertension/Diabetes Mellitus # Multiple Sclerosis (MS) # Cerebrovascular Accident (CVA) history #Hypothyrodism #Hypokalemia Case disclosed with Attending Dr. Mayer and My senior Dr. Medellin PGY2. Kelvin Logan PGY1 Senior Resident Attestation: I discussed with and supervised the geotechnical intern physician involved in the care of this patient. I personally saw and examined the patient and discussed the assessment and plan with the entire medicine team, including my attending. I agree with the discharge plan as documented above. Marc Medellin MD PGY2 Internal Medicine Status at Discharge Overall status at discharge: patient is progressing back to baseline Time Spent with Patient Time attestation: Total time spent providing and/or coordinating discharge services:>35 min Exam Vital Signs Temp Pulse Resp BP Pulse Ox O2 Del Method O2 Flow Rate 97.0 F 87 17 151/91 H 98 Room Air 2 06/30/24 08:00 06/30/24 08:00 06/30/24 08:00 06/30/24 08:00 06/30/24 08:00 06/30/24 08:00 06/23/24 16:00 Narrative Exam General: A/O x3, in no acute distress Eyes: PERRL, EOMI. Anicteric, vision grossly intact. Ears: No ear pain, no ear discharge, Hearing grossly intact. Nose: No nasal discharge. Mouth/Throat: Dry mucous membranes, very poor dentation, no redness, no lesions. Neck: Neck supple, non-tender, no cervical lymphadenopathy. Lungs: Clear VIBHA to auscultation and percussion, No accessory muscle use. Cardio: Normal S1/S2, regular rhythm, no murmurs, no JVD Abdomen: Soft, non-tender, no palpable masses, peristalsis present, no guarding or rebound. Extremities: Symmetrical, no significant deformities, no peripheral edema , non-tender, peripheral pulses presents, RLE immobilizer in place, left upper extremity bruise Skin: No rashes, no lesions, warm to touch. Neuro: No focal neurological deficits. motor and sensory intact Discharge Plan Plan Patient Disposition: Xfer Skilled [facility] ([facility]) Care Plan Goals: ? Please follow-up with primary care physician in 1 week after discharge. ? Please follow-up with orthopedic surgeon Dr. Gomez in 1 to 2 weeks after discharge. ? Please continue wearing knee immobilizing and arm swing. - We have prescribed hydrocodone-acetaminophen 7.5-325 mg 1 table by mouth every 6 hours as needed for pain. - We have prescribed ibuprofen 400mg every 8 hours as needed for pain. - Started on aspirin 81mg twice daily for 20 days for DVT prophylaxis, then continue once daily -Continue with all other prescribed medications as prescribed. -Please come back to the ER if symptoms persist or worsen. Prescriptions/Referrals Prescriptions/Med Rec: New hydrocodone-acetaminophen 7.5-325 mg tablet 1 tab PO Q6H MDD 4 PRN (Reason: pain) 15 Days Qty: 30 0RF ibuprofen 400 mg tablet 400 mg PO Q8H PRN (Reason: fever) 20 Days Qty: 30 0RF aspirin 81 mg tablet,delayed release (DR/EC) 81 mg PO HS Qty: 20 0RF Continued baclofen 10 MG tablet 10 mg PO BID Qty: 0 pantoprazole [Protonix] 40 MG tablet,delayed release (DR/EC) 40 mg PO QDAY Qty: 0 Patient Comments: TO SUPPRESS GASTRIC SECRETIONS buspirone 15 mg Tablet 15 mg PO BID Qty: 0 ondansetron HCl 4 mg tablet 4 mg PO TID PRN (Reason: Nausea) levothyroxine 25 mcg tablet 25 mcg PO QDAY metformin 500 mg tablet extended release 24 hr 500 mg PO QID Januvia 25 mg tablet 25 mg PO QDAY aspirin 81 mg Tablet,Delayed Release (Dr/Ec) 81 mg PO QDAY Qty: 0 0RF meclizine 25 mg tablet 25 mg PO TID Qty: 90 0RF Hold Instructions: untill see pcp clopidogrel 75 mg tablet 75 mg PO QDAY Qty: 30 0RF zolpidem 5 mg tablet 5 mg PO HSPRN PRN (Reason: Sleep) Patient Comments: TAKE 1 TABLET BY MOUTH AT BEDTIME NEEDED FOR INSOMNIA acetaminophen-codeine 300-30 mg tablet 1 tab PO [id number] PRN (Reason: Pain) Patient Comments: TAKE 1 TABLET BY MOUTH EVERY 6 HOURS NEEDED FOR PAIN atorvastatin 20 mg tablet 20 mg PO DAILY Patient Comments: TAKE 1 TABLET BY MOUTH EVERY DAY calcitriol 0.25 mcg capsule 0.25 mcg PO DAILY Patient Comments: TAKE 1 CAPSULE BY MOUTH EVERY DAY Jardiance 25 mg tablet 25 mg PO DAILY Patient Comments: TAKE 1 TABLET BY MOUTH EVERY MORNING Referrals: Pawan Cr MD [Primary Care Provider] - Billy Gomez MD [Physician] - Patient/Caregiver Discharge Instructions Discharge Activity: as per physical therapy Other Discharge Activity Instructions:: ? Please follow-up with primary care physician in 1 week after discharge. ? Please follow-up with orthopedic surgeon Dr. Gomez in 1 to 2 weeks after discharge. ? Please continue wearing knee immobilizing and arm swing. - We have prescribed hydrocodone-acetaminophen 7.5-325 mg 1 table by mouth every 6 hours as needed for pain. - We have prescribed ibuprofen 400mg every 8 hours as needed for pain. - Started on aspirin 81mg twice daily for 20 days for DVT prophylaxis, then continue once daily -Continue all other prescribed medications as prescribed. -Please come back to the ER if symptoms persist or worsen. Education Materials: Common Types of Fractures, ED Fracture, Knee, ED Fracture, Shoulder Print Language: Lao Stand Alone Forms: [employer] Award Info., Patient Portal Info Letter Discharge Order Discharge Orders: Discharge (Routine); Ordered 06/30/24 Ordered By: Marc Medellin Quality Discharge Quality Measures VTE prophylaxis
[2024-06-30 10:44] VITALS: BMI 11.0; BMI 12.0
[2024-06-30 12:00] VITALS: BP 125/75; PULSE 60; RESP 16; TEMP 36.4; O2SAT 95
[2024-06-30 16:00] VITALS: BP 134/68; PULSE 67; RESP 17; TEMP 36.1; O2SAT 97
--- NOTE | 2024-06-30 16:45 | PC.NURSE ---
GAVE REPORT TO RAJEEV AT [facility]
--- NOTE | 2024-06-30 18:45 | PC.NURSE ---
GAVE REPORT TO DENEEN WILL HAND OFF REPORT TO JESSICA MARKS
--- NOTE | 2024-06-30 20:05 | PC.NURSE ---
Pt left to [facility] per [facility], pt is alert and oriented. No C/O of pain at this time.
== END 2024-06-30 20:05 | disposition skilled nursing facility (03) | DRG 563 ==
LOC: SERX 06-22 02:50 → SERHOLD 06-22 06:48 → S3SX 06-22 08:39
PROVIDERS: Admitting Provider Internal Medicine; Emergency Provider Emergency Medicine; PCP Internal Medicine; Visit Provider Internal Medicine
DX: S42.212A Unspecified displaced fracture of surgical neck of left humerus, initial encounter for closed fracture (principal); S22.31XA Fracture of one rib, right side, initial encounter for closed fracture; S82.001A Unspecified fracture of right patella, initial encounter for closed fracture; I10 Essential (primary) hypertension; G35 Multiple sclerosis; E11.9 Type 2 diabetes mellitus without complications; E03.9 Hypothyroidism, unspecified; E78.5 Hyperlipidemia, unspecified; I25.10 Atherosclerotic heart disease of native coronary artery without angina pectoris; E87.6 Hypokalemia; K21.9 Gastro-esophageal reflux disease without esophagitis; Z86.73 Personal history of transient ischemic attack (TIA), and cerebral infarction without residual deficits; Z79.02 Long term (current) use of antithrombotics/antiplatelets; Z79.890 Hormone replacement therapy; Z79.84 Long term (current) use of oral hypoglycemic drugs; Z79.82 Long term (current) use of aspirin; Z79.899 Other long term (current) drug therapy; Z88.5 Allergy status to narcotic agent; Z91.048 Other nonmedicinal substance allergy status; W01.0XXA Fall on same level from slipping, tripping and stumbling without subsequent striking against object, initial encounter; Y93.K1 Activity, walking an animal; Y92.009 Unspecified place in unspecified non-institutional (private) residence as the place of occurrence of the external cause
CPT/HCPCS: 36415; 70450; 71045; 72125; 73030; 73080; 73100; 73502; 73560; 73562; 80048; 80053; 81001; 83690; 83735; 83880; 84100; 84484; 85025; 85610; 85730; 93005; 96361; 96365; 96375; 97162; 99285; A4565; J0131; J0360; J1650; J1885; J2405; J2470; J3010; J3475; J3490; J7030; J7040; Q0162; A9270

== ENCOUNTER 2024-07-07 14:37 | Outpatient (AMB) | payer MEDICARE, MEDICAID, SELFPAY ==
[2024-07-07 15:12] VITALS: BP 111/73; PULSE 101; RESP 19; TEMP 36.7; O2SAT 96; BMI 23.6
--- NOTE | 2024-07-07 15:12 | PD.ORTHCLVIS ---
Vital signs 07/07/24 15:12 Height 1.55 m Height Method Stated Weight 56.699 kg Weight Measurement Method Standing Scale BMI 23.6 BP 111/73 Blood Pressure Source Automatic Cuff Blood Pressure Location Right Upper Arm Position Sitting Respiration 19 Pulse 101 H Pulse Source Monitor Temp 98.0 F Temp Source Temporal Artery Scan Pulse Oximetry (%) 96 Oxygen Delivery Method Room Air Med/Allergies Allergies & Medications Allergies morphine Allergy (Severe, Verified 07/07/24 15:13) VOMITING Penicillins Allergy (Severe, Verified 07/07/24 15:13) Hives adhesive Allergy (Intermediate, Verified 07/07/24 15:13) Rash Medication Reconciliation baclofen 10 mg tablet 10 mg PO BID #0 tabs 02/07/14 [History Confirmed 07/07/24] pantoprazole 40 mg tablet,delayed release (Protonix) 40 mg PO QDAY ##0 02/07/14 [History Confirmed 07/07/24] buspirone 15 mg tablet 15 mg PO BID #0 tabs 08/15/16 [History Confirmed 07/07/24] levothyroxine 25 mcg tablet 25 mcg PO QDAY 05/06/21 [History Confirmed 07/07/24] metformin 500 mg tablet,extended release 24 hr 500 mg PO QID 05/06/21 [History Confirmed 07/07/24] ondansetron HCl 4 mg tablet 4 mg PO TID PRN Nausea 05/06/21 [History Confirmed 07/07/24] sitagliptin phosphate 25 mg tablet (Januvia) 25 mg PO QDAY 05/06/21 [History Confirmed 07/07/24] aspirin 81 mg tablet,delayed release 81 mg PO QDAY #0 tabs 09/04/23 [Rx Confirmed 07/07/24] clopidogrel 75 mg tablet 75 mg PO QDAY #30 tabs 09/06/23 [Rx Confirmed 07/07/24] meclizine 25 mg tablet 25 mg PO TID #90 tabs 09/06/23 [Rx Confirmed 07/07/24] acetaminophen 300 mg-codeine 30 mg tablet 1 tab PO [id number] PRN Pain 06/22/24 [History Confirmed 07/07/24] atorvastatin 20 mg tablet 20 mg PO DAILY 06/22/24 [History Confirmed 07/07/24] calcitriol 0.25 mcg capsule 0.25 mcg PO DAILY 06/22/24 [History Confirmed 07/07/24] empagliflozin 25 mg tablet (Jardiance) 25 mg PO DAILY 06/22/24 [History Confirmed 07/07/24] zolpidem 5 mg tablet 5 mg PO HSPRN PRN Sleep 06/22/24 [History Confirmed 07/07/24] aspirin 81 mg tablet,delayed release 81 mg PO HS FOR DVT prophylaxis #20 tabs 06/26/24 [Rx Confirmed 07/07/24] hydrocodone 7.5 mg-acetaminophen 325 mg tablet 1 tab PO Q6H PRN pain 15 days #30 tabs 06/26/24 [Rx Confirmed 07/07/24] ibuprofen 400 mg tablet 400 mg PO Q8H PRN fever 20 days #30 tabs 06/26/24 [Rx Confirmed 07/07/24] Exam Exam Patient is in no acute distress and is cooperative with the examination today. Patient has a normal mood and affect. Breathing is nonlabored. In no respiratory distress. Bilateral extremities were evaluated and demonstrates sensation intact to light touch. Palpable pedal pulses are present. No significant edema is present. Left shoulder is tender to palpation. Range of motion was not performed secondary to pain Her right continued brace is not fitting at all. His send if it is over the mid [place] if she is able to bend her knee. He has a intact extensor mechanism. There is 5 out of 5 extensor strength. She is nontender over the distal pole of the patella. Assessment and Plan Problem List (1) Right patella fracture: Status: Acute Plan: Patient is a 69-year-old female with a nondisplaced patella fracture and an intact extensor mechanism. We discussed this is typically treated nonoperatively. Her left shoulder does have a proximal humeral neck fracture. I would treat this to nonoperative well given her prior stroke, multiple sclerosis, and significant medical comorbidities. On x-rays, both the proximal humerus and patella fractures are nondisplaced. She is in rehab and has not tried walking at all. I would like to get new x-rays of both her patella as well as her left shoulder. Advanced Care Planning Discussion Advance care planning discussed with:: patient Office Procedures GNS Level of Care Nursing/Assessment Patient Status: Established Patient Nursing Assessment/Reassesment: Medication Reconciliation, Update PMH in EMR and Vital Signs Coordination of Care: Complex Care and Chronic Disease 1-5, Education Complex Pt/Fam, Consent,records obtained, informed consent, Results/Orders obtained and Staff clarify orders Established Patient Charge Established Patient Point Assignment: 95 Established Patient Point Charge: EP Level 3 (80-115) MA Intake Visit Data Collection New Patient or Established: Established Patient (seen at 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 Required: No PCP or OBGYN visit in last 3 months: Yes Hx Now: No Do You Feel Safe at Home: Yes Authorities Contacted: N/A Questionairres Past Medical History Past Medical History Have you ever been diagnosed with any of the following: Neurological Problems Cerebrovascular Accident (CVA): Yes Transient Ischemic Attacks (TIA): Yes Multiple Sclerosis: Yes Cardiology Problems Congestive Heart Failure: No Hypertension: Yes Respiratory Problems Chronic Obstructive Pulmonary Disease (COPD): No Asthma: No Smoking: No Smoking Cessation Counseling: No Smoking Exposure: No Genital/Urinary Problems Renal Disease: No Head,Eye,Nose,Throat Problems Glaucoma: No Endocrine Problems Diabetes Mellitus Type 1: No Diabetes Mellitus Type 2: Yes Hypothyroidism: Yes Blood Problems Sickle Cell Disease: No Psychologic Problems Depression: Yes Subjective Visit Visit for: follow up visit and knee Immunization / Flu Flu Vaccine in the Last 12 Months: Yes Flu Vaccine Exclusion Criteria: Already Received History of Present Illness Chief complaint: KNEE & SHOULDER PAIN Urban is a 69-year-old female with sclerosis and right nondisplaced patella fracture as well as a left proximal humerus fracture. We treated nonoperatively given her medical comorbidities. In addition, there is no significant displacement. She has an intact extensor mechanism. I will treat her left shoulder nonoperatively as well Personal History Occupation: DISABLED Red flag PMH: none Pain Pain level (0-10): 10 Pain duration: ALL DAY Ambulatory data Ambulatory device: other (specify) (WHEELCHAIR ) Treatments Improvement with previous injections: No Improvement with PT: No Improvement with NSAIDS: n/a Review of Systems Review of Systems: All systems negative unless otherwise noted in HPI.
== END 2024-07-07 15:31 | disposition home or self-care (01) ==
LOC: HODSRG 14:37
PROVIDERS: PCP Internal Medicine; Referring Provider Internal Medicine; Supervising Provider Orthopaedic Surgery Adult Reconstructive Orthopaedic Surgery; Visit Provider Orthopaedic Surgery Adult Reconstructive Orthopaedic Surgery
DX: S82.001D Unspecified fracture of right patella, subsequent encounter for closed fracture with routine healing (principal); S42.202D Unspecified fracture of upper end of left humerus, subsequent encounter for fracture with routine healing; X58.XXXD Exposure to other specified factors, subsequent encounter; I10 Essential (primary) hypertension; G35 Multiple sclerosis; Z86.73 Personal history of transient ischemic attack (TIA), and cerebral infarction without residual deficits
CPT/HCPCS: 99213; G0463

== ENCOUNTER 2024-09-15 14:28 | Outpatient (AMB) | payer MEDICARE, MEDICAID, SELFPAY ==
[2024-09-15 14:47] VITALS: BP 131/80; PULSE 102; RESP 16; TEMP 36.3; O2SAT 95; BMI 22.6
--- NOTE | 2024-09-15 14:47 | ORTHONT_ITS ---
Vital signs 09/15/24 14:47 Height 1.55 m Height Method Stated Weight 54.431 kg Weight Measurement Method Estimated by Patient BMI 22.6 BP 131/80 H Blood Pressure Source Automatic Cuff Blood Pressure Location Left Upper Arm Position Sitting Respiration 16 Pulse 102 H Pulse Source Monitor Temp 97.3 F Temp Source Temporal Artery Scan Pulse Oximetry (%) 95 Oxygen Delivery Method Room Air Med/Allergies Allergies & Medications Allergies morphine Allergy (Severe, Verified 09/15/24 14:48) VOMITING Penicillins Allergy (Severe, Verified 09/15/24 14:48) Hives adhesive Allergy (Intermediate, Verified 09/15/24 14:48) Rash Medication Reconciliation baclofen 10 mg tablet 10 mg PO BID #0 tabs 02/07/14 [History Confirmed 09/15/24] pantoprazole 40 mg tablet,delayed release (Protonix) 40 mg PO QDAY ##0 02/07/14 [History Confirmed 09/15/24] buspirone 15 mg tablet 15 mg PO BID #0 tabs 08/15/16 [History Confirmed 09/15/24] levothyroxine 25 mcg tablet 25 mcg PO QDAY 05/06/21 [History Confirmed 09/15/24] metformin 500 mg tablet,extended release 24 hr 500 mg PO QID 05/06/21 [History Confirmed 09/15/24] ondansetron HCl 4 mg tablet 4 mg PO TID PRN Nausea 05/06/21 [History Confirmed 09/15/24] sitagliptin phosphate 25 mg tablet (Januvia) 25 mg PO QDAY 05/06/21 [History Confirmed 09/15/24] aspirin 81 mg tablet,delayed release 81 mg PO QDAY #0 tabs 09/04/23 [Rx Confirmed 09/15/24] clopidogrel 75 mg tablet 75 mg PO QDAY #30 tabs 09/06/23 [Rx Confirmed 09/15/24] meclizine 25 mg tablet 25 mg PO TID #90 tabs 09/06/23 [Rx Confirmed 09/15/24] acetaminophen 300 mg-codeine 30 mg tablet 1 tab PO [id number] PRN Pain 06/22/24 [History Confirmed 09/15/24] atorvastatin 20 mg tablet 20 mg PO DAILY 06/22/24 [History Confirmed 09/15/24] calcitriol 0.25 mcg capsule 0.25 mcg PO DAILY 06/22/24 [History Confirmed 09/15/24] empagliflozin 25 mg tablet (Jardiance) 25 mg PO DAILY 06/22/24 [History Confirmed 09/15/24] zolpidem 5 mg tablet 5 mg PO HSPRN PRN Sleep 06/22/24 [History Confirmed 09/15/24] aspirin 81 mg tablet,delayed release 81 mg PO HS FOR DVT prophylaxis #20 tabs 06/26/24 [Rx Confirmed 09/15/24] Exam Exam Patient is in no acute distress and is cooperative with the examination today. Patient has a normal mood and affect. Breathing is nonlabored. In no respiratory distress. Bilateral extremities were evaluated and demonstrates sensation intact to light touch. Palpable pedal pulses are present. No significant edema is present. Left shoulder is tender to palpation. Range of motion was not performed secondary to pain Her right continued brace is not fitting at all. His send if it is over the mid [place] if she is able to bend her knee. He has a intact extensor mechanism. There is 5 out of 5 extensor strength. She is nontender over the distal pole of the patella. 3 obliques of the left knee were reviewed. This demonstrates a knee and I do not see any fracture. It Is very hard to interpret these films given that the oblique views Assessment and Plan Problem List (1) Right patella fracture: Status: Acute Plan: Patient is a 69-year-old female with a nondisplaced patella fracture and an intact extensor mechanism. We discussed this is typically treated no noperatively. Her left shoulder does have a proximal humeral neck fracture. I would treat this to nonoperative well given her prior stroke, multiple sclerosis, and significant medical comorbidities. We will order new films and See her in approximately 3 weeks Advanced Care Planning Discussion Advance care planning discussed with:: patient Office Procedures GNS Level of Care Nursing/Assessment Patient Status: Established Patient Nursing Assessment/Reassesment: Medication Reconciliation, Update PMH in EMR and Vital Signs Coordination of Care: Complex Care and Chronic Disease 1-5, Consent,records obtained, informed consent, Education Simp Pt/Fam, Results/Orders obtained and Staff clarify orders Established Patient Charge Established Patient Point Assignment: 90 Established Patient Point Charge: EP Level 3 (80-115) MA Intake Visit Data Collection New Patient or Established: Established Patient (seen at [facility] within 3 years) Reason for Visit:: FU RT HIP FRACTURE Seen by Clinical Staff ONLY (RN/MA): No Spring Former Machine Required: No PCP or OBGYN visit in last 3 months: Yes Hx Now: No Do You Feel Safe at Home: Yes Authorities Contacted: N/A Questionairres Past Medical History Past Medical History Have you ever been diagnosed with any of the following: Neurological Problems Cerebrovascular Accident (CVA): Yes Transient Ischemic Attacks (TIA): Yes Multiple Sclerosis: Yes Cardiology Problems Congestive Heart Failure: No Hypertension: Yes Respiratory Problems Chronic Obstructive Pulmonary Disease (COPD): No Asthma: No Smoking: No Smoking Cessation Counseling: No Smoking Exposure: No Genital/Urinary Problems Renal Disease: No Head,Eye,Nose,Throat Problems Glaucoma: No Endocrine Problems Diabetes Mellitus Type 1: No Diabetes Mellitus Type 2: Yes Hypothyroidism: Yes Blood Problems Sickle Cell Disease: No Psychologic Problems Depression: Yes Subjective Visit Visit for: follow up visit and knee Immunization / Flu Flu Vaccine in the Last 12 Months: Yes Flu Vaccine Exclusion Criteria: Already Received History of Present Illness Chief complaint: KNEE & SHOULDER PAIN Urban is a 69-year-old female with sclerosis and right nondisplaced patella fracture as well as a left proximal humerus fracture. We treated nonoperatively given her medical comorbidities. In addition, there is no significant displacement. She has an intact extensor mechanism. I will treat her left shoulder nonoperatively as well. She has been doing therapy. She has no recent x-rays on the left shoulder Personal History Occupation: DISABLED Red flag PMH: none Pain Pain level (0-10): 10 Pain duration: ALL DAY Ambulatory data Ambulatory device: other (specify) (WHEELCHAIR ) Treatments Improvement with previous injections: No Improvement with PT: No Improvement with NSAIDS: n/a Review of Systems Review of Systems: All systems negative unless otherwise noted in HPI.
== END 2024-09-15 15:13 | disposition home or self-care (01) ==
PROVIDERS: PCP Internal Medicine; Referring Provider Internal Medicine; Supervising Provider Orthopaedic Surgery Adult Reconstructive Orthopaedic Surgery; Visit Provider Orthopaedic Surgery Adult Reconstructive Orthopaedic Surgery
DX: S82.001D Unspecified fracture of right patella, subsequent encounter for closed fracture with routine healing (principal); S42.202D Unspecified fracture of upper end of left humerus, subsequent encounter for fracture with routine healing; X58.XXXD Exposure to other specified factors, subsequent encounter; I10 Essential (primary) hypertension; E11.9 Type 2 diabetes mellitus without complications; E03.9 Hypothyroidism, unspecified; G35 Multiple sclerosis; Z86.73 Personal history of transient ischemic attack (TIA), and cerebral infarction without residual deficits
CPT/HCPCS: 99213; G0463

== ENCOUNTER 2024-10-10 12:54 | Outpatient (AMB) | payer MEDICARE, MEDICAID, SELFPAY ==
[2024-10-10 13:08] VITALS: BP 128/72; PULSE 106; RESP 18; TEMP 36.3; O2SAT 93; BMI 22.6
--- NOTE | 2024-10-10 13:08 | PD.ORTHCLVIS ---
Vital signs 10/10/24 13:08 Height 1.55 m Height Method Stated Weight 54.431 kg Weight Measurement Method Estimated by Patient BMI 22.6 BP 128/72 Blood Pressure Source Automatic Cuff Blood Pressure Location Left Upper Arm Position Sitting Respiration 18 Pulse 106 H Pulse Source Monitor Temp 97.4 F Temp Source Temporal Artery Scan Pulse Oximetry (%) 93 L Oxygen Delivery Method Room Air Med/Allergies Allergies & Medications Allergies morphine Allergy (Severe, Verified 10/10/24 13:09) VOMITING Penicillins Allergy (Severe, Verified 10/10/24 13:09) Hives adhesive Allergy (Intermediate, Verified 10/10/24 13:09) Rash Medication Reconciliation pantoprazole 40 mg tablet,delayed release (Protonix) 40 mg PO QDAY ##0 02/07/14 [History Confirmed 10/10/24] levothyroxine 25 mcg tablet 25 mcg PO QDAY 05/06/21 [History Confirmed 10/10/24] metformin 500 mg tablet,extended release 24 hr 500 mg PO QID 05/06/21 [History Confirmed 10/10/24] ondansetron HCl 4 mg tablet 4 mg PO TID PRN Nausea 05/06/21 [History Confirmed 10/10/24] sitagliptin phosphate 25 mg tablet (Januvia) 25 mg PO QDAY 05/06/21 [History Confirmed 10/10/24] clopidogrel 75 mg tablet 75 mg PO QDAY #30 tabs 09/06/23 [Rx Confirmed 10/10/24] meclizine 25 mg tablet 25 mg PO TID #90 tabs 09/06/23 [Rx Confirmed 10/10/24] acetaminophen 300 mg-codeine 30 mg tablet 1 tab PO [id number] PRN Pain 06/22/24 [History Confirmed 10/10/24] atorvastatin 20 mg tablet 20 mg PO DAILY 06/22/24 [History Confirmed 10/10/24] calcitriol 0.25 mcg capsule 0.25 mcg PO DAILY 06/22/24 [History Confirmed 10/10/24] empagliflozin 25 mg tablet (Jardiance) 25 mg PO DAILY 06/22/24 [History Confirmed 10/10/24] zolpidem 5 mg tablet 5 mg PO HSPRN PRN Sleep 06/22/24 [History Confirmed 10/10/24] aspirin 81 mg tablet,delayed release 81 mg PO HS FOR DVT prophylaxis #20 tabs 06/26/24 [Rx Confirmed 10/10/24] Exam Exam Patient is in no acute distress and is cooperative with the examination today. Patient has a normal mood and affect. Breathing is nonlabored. In no respiratory distress. Bilateral extremities were evaluated and demonstrates sensation intact to light touch. Palpable pedal pulses are present. No significant edema is present. Left shoulder is tender to palpation. Range of motion was not performed secondary to pain Her right continued brace is not fitting at all. His send if it is over the mid [place] if she is able to bend her knee. He has a intact extensor mechanism. There is 5 out of 5 extensor strength. She is nontender over the distal pole of the patella. 3 obliques of the left knee were reviewed. This demonstrates a knee and I do not see any fracture. It Is very hard to interpret these films given that the oblique views Assessment and Plan Problem List (1) Right patella fracture: Status: Acute Plan: Patient is a 69-year-old female with a nondisplaced patella fracture and an intact extensor mechanism. We discussed this is typically treated nonoperatively. Her left shoulder does have a proximal humeral neck fracture. I would treat this to nonoperative well given her prior stroke, multiple sclerosis, and significant medical comorbidities. We ordered new xrays but she did not get them. She is working with physical therapy. Advanced Care Planning Discussion Advance care planning discussed with:: patient Office Procedures GNS Level of Care Nursing/Assessment Patient Status: Established Patient Nursing Assessment/Reassesment: Medication Reconciliation, Update PMH in EMR and Vital Signs Coordination of Care: Complex Care and Chronic Disease 1-5, Education Complex Pt/Fam, Consent,records obtained, informed consent, Results/Orders obtained and Staff clarify orders Established Patient Charge Established Patient Point Assignment: 95 Established Patient Point Charge: EP Level 3 (80-115) MA Intake Visit Data Collection New Patient or Established: Established Patient (seen at [facility] [place] within 3 years) Reason for Visit:: FOLLOW UP Seen by Clinical Staff ONLY (RN/MA): No PCP or OBGYN visit in last 3 months: Yes Hx Now: No Do You Feel Safe at Home: Yes Authorities Contacted: N/A Questionairres Past Medical History Past Medical History Have you ever been diagnosed with any of the following: Neurological Problems Cerebrovascular Accident (CVA): Yes Transient Ischemic Attacks (TIA): Yes Multiple Sclerosis: Yes Cardiology Problems Congestive Heart Failure: No Hypertension: Yes Respiratory Problems Chronic Obstructive Pulmonary Disease (COPD): No Asthma: No Smoking: No Smoking Cessation Counseling: No Smoking Exposure: No Genital/Urinary Problems Renal Disease: No Head,Eye,Nose,Throat Problems Glaucoma: No Endocrine Problems Diabetes Mellitus Type 1: No Diabetes Mellitus Type 2: Yes Hypothyroidism: Yes Blood Problems Sickle Cell Disease: No Psychologic Problems Depression: Yes Subjective Visit Visit for: follow up visit and knee Immunization / Flu Flu Vaccine in the Last 12 Months: Yes Flu Vaccine Exclusion Criteria: Already Received History of Present Illness Chief complaint: KNEE & SHOULDER PAIN Urban is a 69-year-old female with sclerosis and right nondisplaced patella fracture as well as a left proximal humerus fracture. We treated nonoperatively given her medical comorbidities. In addition, there is no significant displacement. She has an intact extensor mechanism. I will treat her left shoulder nonoperatively as well. She is reportedly doing well Personal History Occupation: DISABLED Red flag PMH: none Pain Pain level (0-10): 0 Ambulatory data Ambulatory device: other (specify) (WHEEL CHAIR) Treatments Improvement with previous injections: No Improvement with PT: No Improvement with NSAIDS: n/a Review of Systems Review of Systems: All systems negative unless otherwise noted in HPI.
== END 2024-10-10 13:14 | disposition home or self-care (01) ==
LOC: HODSRG 12:54
PROVIDERS: PCP Internal Medicine; Referring Provider Internal Medicine; Supervising Provider Orthopaedic Surgery Adult Reconstructive Orthopaedic Surgery; Visit Provider Orthopaedic Surgery Adult Reconstructive Orthopaedic Surgery
DX: S82.001D Unspecified fracture of right patella, subsequent encounter for closed fracture with routine healing (principal); S42.212D Unspecified displaced fracture of surgical neck of left humerus, subsequent encounter for fracture with routine healing; X58.XXXD Exposure to other specified factors, subsequent encounter; I10 Essential (primary) hypertension; G35 Multiple sclerosis; Z86.73 Personal history of transient ischemic attack (TIA), and cerebral infarction without residual deficits; E11.9 Type 2 diabetes mellitus without complications; E03.9 Hypothyroidism, unspecified
CPT/HCPCS: 99213; G0463

== ENCOUNTER 2024-10-24 14:41 | Emergency (ER) | payer MEDICARE, MEDICAID, SELFPAY ==
[2024-10-24] VITALS (11 sets, daily range): BP systolic 113–136; BP diastolic 62–84; PULSE 99–106; RESP 7–24; TEMP 36.4–37.1; O2SAT 97–99; BMI 22.6
--- NOTE | 2024-10-24 14:45 | XR_ITS ---
Examination: Lumbar spine 3 views Technique one AP lateral coned lateral lower lumbar spine 3 views Standing time: October 24, 2024 1657 hours Comparison November 16, 2023 INDICATIONS: Patient heard a pop in the back today followed by back pain. FINDINGS: Significant osteopenia Thoracolumbar levoscoliosis 20 degrees Stable chronic osteoporotic compression T12 compared with November 16, 2023 Mild depression superior endplate L4 which may be acute Mild lumbar spondylosis Impression: Recommend CT scan lumbar spine follow-up to confirm acute compression fracture L4 vertebral body
--- NOTE | 2024-10-24 14:46 | EKG_ITS ---
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
--- NOTE | 2024-10-24 16:03 | PD.EDADULT ---
ED General RME/HPI General Chief complaint: Nausea/Vomiting/Diarrhea Stated complaint: ABDOMINAL PAIN Time Seen by Provider: 10/24/24 14:44 Arrival date/time: 10/24/24 14:41 CC: Nausea vomiting back pain HPI patient presents the ER via EMS after 1 week of nausea vomiting, during 1 episode of vomiting the patient heard a pop pop in her low back resulting in back pain. Patient denies chest pain shortness of breath or fever. Denies diarrhea. Localized pain in the back is 6-8 on a 10 scale. Patient denies bowel or bladder symptoms saddle anesthesia numbness tingling or weakness in the lower extremities. Related Data Home Medications ?Medication ?Instructions ?Recorded ?Confirmed pantoprazole 40 mg tablet,delayed 40 mg PO QDAY ##0 02/07/14 10/10/24 release (Protonix) levothyroxine 25 mcg tablet 25 mcg PO QDAY 05/06/21 10/10/24 metformin 500 mg tablet,extended 500 mg PO QID 05/06/21 10/10/24 release 24 hr ondansetron HCl 4 mg tablet 4 mg PO TID PRN Nausea 05/06/21 10/10/24 sitagliptin phosphate 25 mg tablet 25 mg PO QDAY 05/06/21 10/10/24 (Januvia) acetaminophen 300 mg-codeine 30 mg 1 tab PO [id number] PRN Pain 06/22/24 10/10/24 tablet atorvastatin 20 mg tablet 20 mg PO DAILY 06/22/24 10/10/24 calcitriol 0.25 mcg capsule 0.25 mcg PO DAILY 06/22/24 10/10/24 empagliflozin 25 mg tablet 25 mg PO DAILY 06/22/24 10/10/24 (Jardiance) zolpidem 5 mg tablet 5 mg PO HSPRN PRN Sleep 06/22/24 10/10/24 Previous Rx's ?Medication ?Instructions ?Recorded clopidogrel 75 mg tablet 75 mg PO QDAY #30 tabs 09/06/23 meclizine 25 mg tablet 25 mg PO TID #90 tabs 09/06/23 aspirin 81 mg tablet,delayed 81 mg PO HS FOR DVT prophylaxis 06/26/24 release #20 tabs ciprofloxacin HCl 500 mg tablet 500 mg PO BID #14 tabs 10/24/24 meloxicam 7.5 mg tablet 7.5 mg PO QDAY #10 tabs 10/24/24 ondansetron 4 mg disintegrating 4 mg PO Q8H #14 tabs 10/24/24 tablet Allergies Allergy/AdvReac Type Severity Reaction Status Date / Time morphine Allergy Severe VOMITING Verified 10/10/24 13:09 Penicillins Allergy Severe Hives Verified 10/10/24 13:09 adhesive Allergy Intermediate Rash Verified 10/10/24 13:09 Review of Systems Review of Systems Narrative Review of Systems: GEN: No fever, no chills, no weight loss EYES: No discharge, no visual changes, no pain HEENT: No ear pain, no congestion, no sore throat PULM: No shortness of breath, no cough, no congestion CV: No chest pain, no dyspnea on exertion, no palpitations GI: No nausea, no vomiting, no diarrhea, no pain, no constipation : No frequency, no urgency, no dysuria MUSC/SKEL: No joint pain, + back pain SKIN: No rash PSYCH: No hallucinations, no depression HEME/LYMPH: No easy bleeding or bruising tendencies NEURO: No weakness, no headache Past Medical History Past Medical History NEUROLOGIC: Positive Neurological Disorders, Cerebrovascular Accident, Transient Ischemic Attacks (TIA) and Multiple Sclerosis CARDIAC: Positive Hypertension; Negative Cardiac Disorders or Congestive Heart Failure RESPIRATORY: Negative Chronic Obstructive Pulmonary Disease (COPD), Asthma, Smoking, Smoking Cessation Counseling or Smoking Exposure GENITOURINARY: Negative Renal Disease ENT: Negative Glaucoma ENDOCRINE: Positive Diabetes Mellitus Type 2 and Hypothyroidism; Negative Diabetes Mellitus Type 1 HEMATOLOGIC: Negative Blood Disorders or Sickle Cell Disease PSYCHO/SOCIAL: Positive Depression Social History SMOKING STATUS: Never smoker ED Exam Narrative Physical exam: [General: Deconditioned in moderate discomfort but not in any acute distress Head normocephalic HEENT: Within acceptable limits Neck is supple nontender Chest equal chest rise nontender to palpation Respiratory: Clear to auscultation no wheezes crackles or rubs CV: Rate rhythm is regular no murmurs rubs or clicks Abdomen is soft nontender no masses positive bowel sounds all 4 quadrants Back: No CVA tenderness no spinous process tenderness from cervical spine thoracic and lumbar spine Skin: Intact no petechiae rash induration ulceration or crepitus Extremities: Moving all extremity against resistance cap refill less than 2 seconds neurosensory intact Neuro: Awake alert oriented x3 Glascow coma 15 no focal deficits] Course Course Course Narrative: At 2122, confirmed x-ray and CT show the patient has an L4 compression fracture that is acute. Patient also has a urinary tract infection. Patient states that the popping sensation she felt was 4 to 5 days ago she ambulated as recently as today. At this time the patient is awake alert oriented where make an arrangement to discharge her home with a diagnosis of UTI and compression fracture with nausea and vomiting. Quality Measures none Orders Category Date Time Status EKG (ED ONLY) *Do not use* NOW Care 10/24/24 14:46 Completed Saline [Insert IV] NOW Care 10/24/24 14:[address] lumbar spine wo con Stat Exams 10/24/24 19:41 Completed EKG (ED Only) Stat Exams 10/24/24 14:46 Draft XR lumbar spine 2-3V Stat Exams 10/24/24 14:45 Completed B-Type Natriuretic Peptide Stat Lab 10/24/24 16:08 Completed CBC Stat Lab 10/24/24 16:08 Completed Comprehensive Metabolic Panel Stat Lab 10/24/24 16:08 Completed Drug Screen,Urine Stat Lab 10/24/24 16:49 Completed LDH (Lactate Dehydrogenase) Stat Lab 10/24/24 16:08 Completed Magnesium Stat Lab 10/24/24 16:08 Completed Partial Thromboplastin Time Stat Lab 10/24/24 16:08 Completed Prothrombin Time with INR Stat Lab 10/24/24 16:08 Completed Troponin I Stat Lab 10/24/24 16:08 Completed Urinalysis Stat Lab 10/24/24 16:49 Completed Acetaminophen Ivpb [Ofirmev Inj] Med 10/24/24 20:43 Discontinued 1,000 mg in 100 ml IV NOW HYDROcodone*/APAP 5/325 [[place] 5/325] Med 10/24/24 21:28 Discontinued 1 tab PO X1 ONE HYDROcodone/APAP 10/325 [[place] 10/325] Med 10/24/24 19:42 Discontinued 1 tab PO X1 ONE Ondansetron Inj [Zofran Inj] Med 10/24/24 14:45 Discontinued 4 mg IV X1 ONE Prochlorperazine Inj [Compazine Inj] Med 10/24/24 17:46 Discontinued 10 mg IV X1 ONE Sodium Chloride 0.9% 1000 ml [Ns] 1,000 ml Med 10/24/24 14:47 Discontinued IV 999 mls/hr cefTRIAXone/D5w 1gm IV premix [Rocephin/D5w 1gm IV Med 10/24/24 20:11 Discontinued premix] 1 gm in 50 ml IV X1 Vital Signs Vital signs: Vital Signs Temperature 98.8 F 10/24/24 14:48 Pulse Rate 106 H 10/24/24 14:48 Respiratory Rate 24 H 10/24/24 14:48 Blood Pressure 114/62 10/24/24 14:48 Pulse Oximetry (%) 97 10/24/24 14:48 Oxygen Delivery Method Room Air 10/24/24 14:48 Discharge Plan Plan Patient Disposition: HOME (Self Care) Patient condition on transfer: Stable Prescriptions/Referrals Prescriptions/Med Rec: New meloxicam 7.5 mg tablet 7.5 mg PO QDAY Qty: 10 0RF ciprofloxacin HCl 500 mg tablet 500 mg PO BID Qty: 14 0RF ondansetron 4 mg tablet,disintegrating 4 mg PO Q8H Qty: 14 0RF No Action pantoprazole [Protonix] 40 MG tablet,delayed release (DR/EC) 40 mg PO QDAY Qty: 0 Patient Comments: TO SUPPRESS GASTRIC SECRETIONS ondansetron HCl 4 mg tablet 4 mg PO TID PRN (Reason: Nausea) levothyroxine 25 mcg tablet 25 mcg PO QDAY metformin 500 mg tablet extended release 24 hr 500 mg PO QID Januvia 25 mg tablet 25 mg PO QDAY meclizine 25 mg tablet 25 mg PO TID Qty: 90 0RF clopidogrel 75 mg tablet 75 mg PO QDAY Qty: 30 0RF zolpidem 5 mg tablet 5 mg PO HSPRN PRN (Reason: Sleep) Patient Comments: TAKE 1 TABLET BY MOUTH AT BEDTIME NEEDED FOR INSOMNIA acetaminophen-codeine 300-30 mg tablet 1 tab PO [id number] PRN (Reason: Pain) Patient Comments: TAKE 1 TABLET BY MOUTH EVERY 6 HOURS NEEDED FOR PAIN atorvastatin 20 mg tablet 20 mg PO DAILY Patient Comments: TAKE 1 TABLET BY MOUTH EVERY DAY calcitriol 0.25 mcg capsule 0.25 mcg PO DAILY Patient Comments: TAKE 1 CAPSULE BY MOUTH EVERY DAY Jardiance 25 mg tablet 25 mg PO DAILY Patient Comments: TAKE 1 TABLET BY MOUTH EVERY MORNING aspirin 81 mg tablet,delayed release (DR/EC) 81 mg PO HS Qty: 20 0RF Referrals: Reuben Liao MD [Physician] - In 1 week No Primary/Family,Physician [Primary Care Provider] - In 1 week Problem List Clinical Impression: Compression fx, lumbar spine, Nausea & vomiting, UTI (urinary tract infection) Patient/Caregiver Discharge Instructions Other Activity Instructions:: Take the medications as prescribed follow-up with your primary care provider if there is worsening of symptoms return the emergency room immediately for further evaluation. Education Materials: Back Safety: Sleeping Positions, Urinary Tract Infections in Women, Self-Care for Vomiting and Diarrhea, Back Fracture (Compression Fracture) Print Language: Nicaraguan Stand Alone Forms: [employer] Award Info., Work/School Release, Patient Portal Info Letter FARRAH/CHINO Supervising Physician FARRAH/CHINO Supervising Physician: Fuad Quinonez ENP [facility] Clinical Information Provided by: patient and EMS Medical Records reviewed [facility] and EMS Meds/Rx considered, not ordered None Labs/Rad/Tests considered, not ordered None EKG Interpretation EKG #1: EKG Interpretation: EKG performed at 1551 shows ventricular 101 IN interval 179 QRS of 69 QTc of 406 is sinus tachycardia. Labs Lab(s) Interpretation(s): CBC shows no acute leukocytosis anemia thrombocytopenia Coags within acceptable limits other than the PT at 12.5. CMP shows no significant electrolyte imbalances no renal impairment transaminitis or T. bili elevation Magnesium is 1.4 Troponin is negative BNP is negative Urine is turbid 4+ glucose 3+ ketones 44 WBCs 3+ bacteria budding yeast leukocyte Estrace positive. Imaging Imaging Interpretation(s): X-ray of the lumbar spine shows an L4 compression fracture. Medication Administration(s) Medication Administration History Discontinued Medications Hydrocodone Bitart/Acetaminophen (Hydrocodone/Apap 10/325 Tab) 1 tab PO X1 ONE Stop: 10/24/24 19:43 Last Admin: 10/24/24 20:35 Dose: Not Given Documented By: EE Non-Admin Reason: Patient Refused Hydrocodone Bitart/Acetaminophen (Hydrocodone/Apap 5/325 Tablet) 1 tab PO X1 ONE Stop: 10/24/24 21:29 Last Admin: 10/24/24 21:45 Dose: Not Given Documented By: CCT Non-Admin Reason: Cancelled by Provider Sodium Chloride (Ns) 1,000 mls @ 999 mls/hr IV .Q1H1M ONE Stop: 10/24/24 15:47 Last Infusion: 10/24/24 17:19 Dose: Infused Documented By: Admin: 10/24/24 16:12 Dose: 999 mls/hr Documented By: CG Ceftriaxone Sodium/Dextrose (Rocephin/D5w 1gm Iv Premix) 1 gm in 50 mls @ 100 mls/hr IV X1 ONE Stop: 10/24/24 20:40 Last Infusion: 10/24/24 20:54 Dose: Infused Documented By: Admin: 10/24/24 20:32 Dose: 100 mls/hr Documented By: EE Acetaminophen (Ofirmev Inj) 1,000 mg in 100 mls @ 250 mls/hr IV NOW ONE Stop: 10/24/24 21:06 Last Infusion: 10/24/24 21:46 Dose: Infused Documented By: Admin: 10/24/24 20:53 Dose: 250 mls/hr Documented By: CCT Ondansetron HCl (Ondansetron Inj 2 Mg/Ml Inj 2 Ml) 4 mg IV X1 ONE; Protocol Stop: 10/24/24 14:46 Last Admin: 10/24/24 16:11 Dose: 4 mg Documented By: CG Prochlorperazine Edisylate (Prochlorperazine Inj 5 Mg/Ml Vial 2 Ml) 10 mg IV X1 ONE; Protocol Stop: 10/24/24 17:47 Last Admin: 10/24/24 18:17 Dose: 10 mg Documented By: CG
[2024-10-24] MEDS: ONDANSETRON INJ 2 MG/ML INJ 2 ML 4 MG IV (16:11)
[2024-10-24] MEDS: SODIUM CHLORIDE 0.9% 1000 ML 1,000 ML 999 ML IV (16:12)
[2024-10-24 16:46] LABS: Basophils % (Auto) 0 % (0-2.5); Eosinophils % (Auto) 0 % (0-10); Hematocrit 45.5 % (36.0-46.0); Immature Granulocytes % (Auto) 0 % (0-0); Immature Granulocytes Auto 0.03 Thou/mm3 (0.00-0.00); Lymphocytes # (Auto) 1.9 Thou/mm3 (1.0-4.8); Lymphocytes % (Auto) 21 % (10-50); Mean Corpuscular HGB Conc 35.2 g/dl (31.0-37.0); Mean Corpuscular Hemoglobin 30.8 pg (25.0-35.0); Mean Corpuscular Volume 88 fL (80-100); Monocytes # (Auto) 0.5 Thou/mm3 (0.0-0.8); Monocytes % (Auto) 5 % (0-12); Neutrophils # (Auto) 6.9 Thou/mm3 (1.8-7.7); Neutrophils % (Auto) 74 % (37-80); Nucleated Red Blood Cell % 0 /100 WBC (0); Platelet Count 283 Thou/mm3 (140-440); RDW Standard Deviation 41.2 fL (36.4-46.3); White Blood Count 9.4 Thou/mm3 (3.6-11.0)
[2024-10-24 16:52] LABS: Collection Type, Urine Clean Catch
[2024-10-24 17:00] LABS: INR 1.2 (0.9-1.3); Partial Thromboplastin Time 25.9 Seconds (22.0-36.0); Prothrombin Time 12.5 Seconds (9.0-12.2)
[2024-10-24 17:02] LABS: B-Type Natriuretic Peptide < 20 pg/mL (0-100)
[2024-10-24 17:12] LABS: Amphetamine/Methamp Scrn,U Negative (Negative); Barbiturate Screen,Urine Negative (Negative); Benzodiazepines Screen,Urine Negative (Negative); Benzoylecgonine Screen, Ur Negative (Negative); Fentanyl Screen,Urine Negative (Negative); Opiate Screen,Urine Positive (Negative); THC Screen,Urine Negative (Negative)
[2024-10-24 17:15] LABS: Alanine Aminotransferase 8 U/L (10-49); Albumin, Serum 4.4 gm/dL (3.4-4.8); Albumin/Globulin Ratio 1.3 (1.2-2.2); Alkaline Phosphatase 88 U/L (46-116); Anion Gap 19 (7-16); Aspartate Amino Transferase 14 U/L (0-34); BUN/Creatinine Ratio 13 Ratio (12-20); Bilirubin,Total 0.7 mg/dL (0.3-1.2); Blood Urea Nitrogen 8 mg/dL (9-23); Calcium 9.3 mg/dL (8.3-10.6); Calcium (Corrected) 9.3 mg/dL (8.5-10.1); Carbon Dioxide 20.6 mMol/L (20.0-31.0); Chloride 101 mMol/L (98-107); Creatinine (Component) 0.6 mg/dL (0.6-1.3); Estimated Creatinine Clearance 64.9 mL/min (>60); Globulin 3.5 gm/dL (2.3-3.5); Glucose 113 mg/dL (74-106); LDH (Lactate Dehydrogenase) 144 U/L (120-246); Magnesium 1.4 mg/dL (1.6-2.6); Osmolality,Calculated 280 (275-295); Potassium 3.6 mMol/L (3.4-5.1); Sodium 141 mMol/L (136-145); Total Protein 7.9 gm/dL (5.7-8.2); Troponin I < 0.002 ng/mL (0.0-0.045); eGFR > 60 See Note
[2024-10-24 17:17] LABS: Bacteria,Urine 3+; Bilirubin,Urine Negative (Negative); Blood,Urine Negative (Negative); Budding Yeast,Urine Present; Clarity,Urine Turbid (Clear/Hazy); Color,Urine Drk-Yellow (Lt Yel-Yel); Glucose, Urine 4+ (Negative); Ketones,Urine 3+ (Negative); Leukocyte Esterase,Urine Positive (Negative); Nitrite,Urine Negative (Negative); Protein,Urine Negative (Neg - Trace); RBC,Urine 29 /hpf (0-3); Specific Gravity,Urine 1.015 (1.001-1.035); Squamous Epithelial Cell,Urine 1 /hpf (0-5); Urobilinogen,Urine Negative mg/dL (0.0-1.0); WBC,Urine 44 /hpf (0-5)
[2024-10-24] MEDS: PROCHLORPERAZINE INJ 5 MG/ML VIAL 2 ML 10 MG IV (18:17)
--- NOTE | 2024-10-24 19:20 | PC.NURSE ---
Pt resting with eyes closed. Respirations are even and unlabored. No s/s of acute distress noted. Call light within reach. Plan of care ongoing.
--- NOTE | 2024-10-24 19:41 | XR_ITS ---
Examination: CT lumbar spine, without contrast. 2-D sagittal reconstructions. 2-D coronal reconstructions. 3-D reconstructions. Date and time of exam:October 24, 20242000 hours INDICATIONS: Patient fell today with injury to lower back, lower back pain CTDI: vol (mGy):14 DLP: (mGycm):379 Technique: Multiple 1.25 mm axial sections of the lumbar spine without intravenous contrast have been obtained. 2-D sagittal and coronal reconstructions have been obtained. 3-D reconstructions have been obtained. Low dose protocols were performed. One or more of the following dose reduction techniques were used; automated exposure control, adjustment of the mA and/or KV according to patient size, use of iterative reconstruction technique. Findings: Severe osteopenia Acute fracture L4 vertebral body, depression superior endplate, reduction in height 15% Retropulsion of the posterior margin of this vertebral body 2 mm Pedicles and laminae appear intact L5-S1 4 mm central disc bulge L4-L5 severe overall spinal stenosis, axial image 90, 6 mm central lumbar disc bulge facet arthropathy and thickening of ligamenta flava IMPRESSION: Mild acute compression fracture L4 vertebral body, depression superior endplate, reduction of height 15% L4-L5 severe overall acquired spinal stenosis
[2024-10-24] MEDS: cefTRIAXone/D5w 1gm IV premix 1 GM/50 ML BAG IV (20:32)
--- NOTE | 2024-10-24 20:41 | PC.NURSE ---
assisted patient with sabine care, brief change and new purewick
[2024-10-24] MEDS: ACETAMINOPHEN IVPB 1,000 MG/100 ML VIAL 250 MG IV (20:53)
== END 2024-10-24 22:35 | disposition home or self-care (01) ==
PROVIDERS: Registered Nurse General Practice; Emergency Provider Emergency Medicine
DX: M48.56XA Collapsed vertebra, not elsewhere classified, lumbar region, initial encounter for fracture (principal); N39.0 Urinary tract infection, site not specified; R11.2 Nausea with vomiting, unspecified
CPT/HCPCS: 36415; 72100; 72131; 80053; 80307; 81001; 83615; 83735; 83880; 84484; 85025; 85610; 85730; 93005; 96361; 96365; 96367; 99284; J0131; J0696; J0780; J2405; J7030; A9270

== ENCOUNTER 2024-12-20 14:23 | Inpatient (IN) | payer MEDICARE, MEDICAID, SELFPAY ==
[2024-12-20 14:26] VITALS: BP 101/64; PULSE 115; RESP 20; TEMP 38.1; O2SAT 95
--- NOTE | 2024-12-20 14:36 | PD.EDADULT ---
ED General RME/HPI General Chief complaint: Nausea/Vomiting/Diarrhea Stated complaint: NAUSEA Time Seen by Provider: 12/20/24 14:29 Arrival date/time: 12/20/24 14:23 Related Data Home Medications ?Medication ?Instructions ?Recorded ?Confirmed pantoprazole 40 mg tablet,delayed 40 mg PO QDAY ##0 02/07/14 10/10/24 release (Protonix) levothyroxine 25 mcg tablet 25 mcg PO QDAY 05/06/21 10/10/24 metformin 500 mg tablet,extended 500 mg PO QID 05/06/21 10/10/24 release 24 hr ondansetron HCl 4 mg tablet 4 mg PO TID PRN Nausea 05/06/21 10/10/24 sitagliptin phosphate 25 mg tablet 25 mg PO QDAY 05/06/21 10/10/24 (Januvia) acetaminophen 300 mg-codeine 30 mg 1 tab PO [id number] PRN Pain 06/22/24 10/10/24 tablet atorvastatin 20 mg tablet 20 mg PO DAILY 06/22/24 10/10/24 calcitriol 0.25 mcg capsule 0.25 mcg PO DAILY 06/22/24 10/10/24 empagliflozin 25 mg tablet 25 mg PO DAILY 06/22/24 10/10/24 (Jardiance) zolpidem 5 mg tablet 5 mg PO HSPRN PRN Sleep 06/22/24 10/10/24 Previous Rx's ?Medication ?Instructions ?Recorded clopidogrel 75 mg tablet 75 mg PO QDAY #30 tabs 09/06/23 meclizine 25 mg tablet 25 mg PO TID #90 tabs 09/06/23 aspirin 81 mg tablet,delayed 81 mg PO HS FOR DVT prophylaxis 06/26/24 release #20 tabs ciprofloxacin HCl 500 mg tablet 500 mg PO BID #14 tabs 10/24/24 meloxicam 7.5 mg tablet 7.5 mg PO QDAY #10 tabs 10/24/24 ondansetron 4 mg disintegrating 4 mg PO Q8H #14 tabs 10/24/24 tablet Allergies Allergy/AdvReac Type Severity Reaction Status Date / Time morphine Allergy Severe VOMITING Verified 10/10/24 13:09 Penicillins Allergy Severe Hives Verified 10/10/24 13:09 adhesive Allergy Intermediate Rash Verified 10/10/24 13:09 Review of Systems Review of Systems Systems Reviewed: All systems reviewed, normal except as documented Course Quality Measures none Orders Category Date Time Status Bedside Blood Glucose NOW Care 12/20/24 14:51 Active Bedside COVID-19 Antigen Test NOW Care 12/20/24 16:13 Active Bedside Influenza A&B Antigen Test NOW Care 12/20/24 16:[address] Screening NOW Care 12/20/24 15:43 Active EKG (ED ONLY) *Do not use* NOW Care 12/20/24 14:[address] chest abdomen pelvis w Stat Exams 12/20/24 15:[address] head/brain wo con Stat Exams 12/20/24 14:51 Completed EKG (ED Only) Stat Exams 12/20/24 14:52 Draft XR chest 1V portable Stat Exams 12/20/24 14:51 Completed Alcohol, Blood Medical Stat Lab 12/20/24 14:46 Completed Ammonia Stat Lab 12/20/24 14:46 Completed B-Type Natriuretic Peptide Stat Lab 12/20/24 14:46 Completed Blood Culture (Lab) Stat Lab 12/20/24 14:56 Received CBC Stat Lab 12/20/24 14:46 Completed CMP [Comprehensive Metabolic Panel] Stat Lab 12/20/24 14:46 Completed Drug Screen,Urine Stat Lab 12/20/24 17:10 Completed Lactic Acid [Lactate (Lactic Acid)] Stat Lab 12/20/24 14:46 Completed Lactic Acid, 3 HR Stat Lab 12/20/24 18:05 Ordered Procalcitonin Stat Lab 12/20/24 14:46 Completed Prothrombin Time with INR Stat Lab 12/20/24 14:46 Completed Troponin I Stat Lab 12/20/24 14:46 Completed Type and Screen Stat Lab 12/20/24 14:03 Completed Urinalysis Stat Lab 12/20/24 17:10 Completed Urinalysis, C/S if Indicated Stat Lab 12/20/24 17:10 Completed Venous Blood Gas Stat Lab 12/20/24 14:46 Completed Acetaminophen Tab [Tylenol Tab] Med 12/20/24 15:26 Discontinued 650 mg PO X1 ONE Meropenem Inj [Merrem Inj] 1,000 mg Med 12/20/24 15:15 Discontinued SODIUM CHLORIDE 0.9% (Popper) [Ns 0.9% (P)] 50 ml IV X1 Metoclopramide Inj [Reglan Inj] Med 12/20/24 17:14 Discontinued 10 mg IVP X1 ONE Ondansetron Inj [Zofran Inj] Med 12/20/24 15:26 Discontinued 4 mg IVP X1 ONE POTASSIUM CHL 10 mEq IVPB [Kcl Ivpb] Med 12/20/24 17:00 Active 10 meq in 100 ml IV Q1H Ringers Lactated 1000 ml [Lactated Ringers] 1,000 ml Med 12/20/24 14:40 Discontinued IV 999 mls/hr Sodium Chloride 0.9% 1000 ml [Ns] 1,000 ml Med 12/20/24 14:51 Discontinued IV 2,000 mls/hr Vancomycin/Ns 1 gm Ivpb 200 ml Med 12/20/24 15:00 Discontinued IV X1 Vital Signs Vital signs: Vital Signs Temperature 100.5 F H 12/20/24 14: Pulse Rate 115 H 12/20/24 14:26 Respiratory Rate 20 12/20/24 14:26 Blood Pressure 101/64 12/20/24 14:26 Pulse Oximetry (%) 95 12/20/24 14:26 Oxygen Delivery Method Room Air 12/20/24 14:26 Discharge Plan Plan Patient Disposition: Admit Acute Care w/in Hospital Prescriptions/Referrals Prescriptions/Med Rec: No Action pantoprazole [Protonix] 40 MG tablet,delayed release (DR/EC) 40 mg PO QDAY Qty: 0 Patient Comments: TO SUPPRESS GASTRIC SECRETIONS ondansetron HCl 4 mg tablet 4 mg PO TID PRN (Reason: Nausea) levothyroxine 25 mcg tablet 25 mcg PO QDAY metformin 500 mg tablet extended release 24 hr 500 mg PO QID Januvia 25 mg tablet 25 mg PO QDAY meclizine 25 mg tablet 25 mg PO TID Qty: 90 0RF clopidogrel 75 mg tablet 75 mg PO QDAY Qty: 30 0RF zolpidem 5 mg tablet 5 mg PO HSPRN PRN (Reason: Sleep) Patient Comments: TAKE 1 TABLET BY MOUTH AT BEDTIME NEEDED FOR INSOMNIA acetaminophen-codeine 300-30 mg tablet 1 tab PO [id number] PRN (Reason: Pain) Patient Comments: TAKE 1 TABLET BY MOUTH EVERY 6 HOURS NEEDED FOR PAIN atorvastatin 20 mg tablet 20 mg PO DAILY Patient Comments: TAKE 1 TABLET BY MOUTH EVERY DAY calcitriol 0.25 mcg capsule 0.25 mcg PO DAILY Patient Comments: TAKE 1 CAPSULE BY MOUTH EVERY DAY Jardiance 25 mg tablet 25 mg PO DAILY Patient Comments: TAKE 1 TABLET BY MOUTH EVERY MORNING aspirin 81 mg tablet,delayed release (DR/EC) 81 mg PO HS Qty: 20 0RF meloxicam 7.5 mg tablet 7.5 mg PO QDAY Qty: 10 0RF ciprofloxacin HCl 500 mg tablet 500 mg PO BID Qty: 14 0RF ondansetron 4 mg tablet,disintegrating 4 mg PO Q8H Qty: 14 0RF Referrals: Valerie Cr MD [Primary Care Provider] - In 1 week Problem List Clinical Impression: Fever, Elevated lactic acid level Patient/Caregiver Discharge Instructions Print Language: Lithuanian Stand Alone Forms: [employer] Award Info., Patient Portal Info Letter MD Attestation Attestation I, Jim Mar MD, have reviewed the history, exam, and assessment of the patient. I have evaluated the patient independently and agree with the plan of care documented by [ ]. All diagnostic studies were reviewed and discussed. I confirm the diagnosis as documented by the Resident. I was present during the Medical Decision Making for this patient. The patient's plan of care was created between myself and the Resident and consistent with our discussion of the patient's case. This patient was initially seen in a septic alert was called and medical workup revealed no source for the fever. UA was eventually collected and it came back negative. Patient got antibiotics early because the lactic acid was 5.1. Chest x-ray was negative for any pneumonia. At 1900 hrs. the patient is signed out to the oncoming doctor and he will follow-up on the CT report and admit the patient accordingly. MDM Narrative [facility] hospital course: 69-year-old female with past medical history of multiple sclerosis, hypertension, DM2, and CVA who was brought here by EMS due to nausea and lethargy. Per EMS and the patient she states that she has been having nausea for the past 4 days but unable to vomit anything, she does endorse she has been having black tarry diarrhea for the past 4 days as well. She is also endorses some chills but no fevers and abdominal pain that gets worse with movement and is better if she lays still. She denies fever, shortness of breath, chest pain, palpitations, recent travel, sick contacts. 1427: Patient had a fever with tachycardia sepsis alert was called IV fluids were started, lactic acid came back as 5.6, started on vancomycin and meropenem, CBC unremarkable Medication Administration(s) Medication Administration History Potassium Chloride (Kcl Ivpb) 10 meq in 100 mls @ 75 mls/hr IV Q1H ISRA Stop: 12/20/24 20:59 Discontinued Medications Acetaminophen (Acetaminophen 325 Mg Tablet) 650 mg PO X1 ONE Stop: 12/20/24 15:27 Last Admin: 12/20/24 15:37 Dose: 650 mg Documented By: GABRIELLA Lactated Ringer's (Lactated Ringers) 1,000 mls @ 999 mls/hr IV .Q1H1M ONE Stop: 12/20/24 15:40 Last Infusion: 12/20/24 16:00 Dose: Infused Documented By: Admin: 12/20/24 14:55 Dose: 999 mls/hr Documented By: MELANIE Sodium Chloride (Ns) 1,000 mls @ 2,000 mls/hr IV .Q30M ONE Stop: 12/20/24 15:20 Last Infusion: 12/20/24 17:00 Dose: Infused Documented By: Admin: 12/20/24 15:59 Dose: 2,000 mls/hr Documented By: GABRIELLA Vancomycin/Sodium Chloride (Vancomycin/Ns 1 Gm Ivpb) 200 mls @ 120 mls/hr IV X1 ONE Stop: 12/20/24 16:39 Last Infusion: 12/20/24 18:55 Dose: Infused Documented By: Admin: 12/20/24 16:54 Dose: 120 mls/hr Documented By: GABRIELLA Meropenem 1,000 mg/ Sodium (Chloride) 50 mls @ 100 mls/hr IV X1 ONE Stop: 12/20/24 15:44 Last Infusion: 12/20/24 18:00 Dose: Infused Documented By: Admin: 12/20/24 16:55 Dose: 100 mls/hr Documented By: GABRIELLA Metoclopramide HCl (Metoclopramide Inj 5 Mg/Ml Vial 2 Ml) 10 mg IVP X1 ONE; Protocol Stop: 12/20/24 17:15 Last Admin: 12/20/24 17:25 Dose: 10 mg Documented By: GABRIELLA Ondansetron HCl (Ondansetron Inj 2 Mg/Ml Inj 2 Ml) 4 mg IVP X1 ONE; Protocol Stop: 12/20/24 15:27 Last Admin: 12/20/24 15:37 Dose: 4 mg Documented By: GABRIELLA
[2024-12-20 14:45] VITALS: PULSE 111; RESP 18; O2SAT 95
--- NOTE | 2024-12-20 14:51 | XR_ITS ---
Examination: AP chest single view Technique one AP portable supine chest single view Date and time: December 20, 2024, 1513 hours INDICATIONS: Chest pain shortness breath today. FINDINGS: The film is rotated RPO. Normal heart size No lobar pneumonia or pulmonary edema. Prominent osteopenia IMPRESSION: No pneumonia or pulmonary edema
--- NOTE | 2024-12-20 14:51 | XR_ITS ---
Examination: CT brain head without contrast. 2-D sagittal coronal reconstructions Date and time of exam:December 20, 2024 at 1609 hours INDICATIONS: Loss of consciousness episode today CTDI: vol (mGy):42.2 DLP: (mGycm):796 Technique: Multiple CT axial sections of the brain have been obtained, 5 mm slice thickness. Contrast has not been administered. 2-D sagittal, coronal reconstructions have been obtained Low dose protocols were performed. One or more of the following dose reduction techniques were used; automated exposure control, adjustment of the mA and/or KV according to patient size, use of iterative reconstruction technique. Findings: No significant ventricular enlargement. Old infarct left caudate nucleus Intra-axial or extra-axial hemorrhage density is not seen. No mass effect or midline shift Basal cisterns are not remarkable. Fourth ventricle is midline. Cranial vault intact. Posterior scalp probable sebaceous cyst Impression: Negative for acute hemorrhage, mass effect or midline shift
--- NOTE | 2024-12-20 14:52 | EKG_ITS ---
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
[2024-12-20] MEDS: RINGERS LACTATED 1000 ML 1,000 ML 999 ML IV (14:55)
[2024-12-20 15:08] LABS: Base Excess, Venous 2 (-3-3); O2 Saturation, Venous 76 % (96-97); PCO2, Venous 29 mmHg (36-56); PO2, Venous 35 mmHg (15-58); pH, Venous 7.52 (7.33-7.66)
[2024-12-20 15:10] LABS: Basophils # (Auto) 0.0 Thou/mm3 (0.0-0.2); Basophils % (Auto) 0 % (0-2.5); Eosinophils # (Auto) 0.0 Thou/mm3 (0.0-0.5); Eosinophils % (Auto) 0 % (0-10); Hematocrit 40.6 % (36.0-46.0); Hemoglobin 14.8 g/dL (12.0-16.0); Immature Granulocytes Auto 0.03 Thou/mm3 (0.00-0.00); Lactate (Lactic Acid) 5.1 mMol/L (0.4-2.0); Lymphocytes # (Auto) 1.9 Thou/mm3 (1.0-4.8); Lymphocytes % (Auto) 23 % (10-50); Mean Corpuscular HGB Conc 36.5 g/dl (31.0-37.0); Mean Corpuscular Hemoglobin 31.2 pg (25.0-35.0); Mean Corpuscular Volume 86 fL (80-100); Monocytes # (Auto) 0.5 Thou/mm3 (0.0-0.8); Monocytes % (Auto) 6 % (0-12); Neutrophils # (Auto) 5.6 Thou/mm3 (1.8-7.7); Neutrophils % (Auto) 70 % (37-80); Nucleated Red Blood Cell # 0.00 Thou/mm3 (0.00-0.00); Nucleated Red Blood Cell % 0 /100 WBC (0); Platelet Count 284 Thou/mm3 (140-440); RDW Standard Deviation 41.1 fL (36.4-46.3); Red Blood Count 4.75 Miln/mm3 (4.00-5.20); White Blood Count 8.0 Thou/mm3 (3.6-11.0)
[2024-12-20 15:24] LABS: INR 1.2 (0.9-1.3); Prothrombin Time 12.6 Seconds (9.0-12.2)
[2024-12-20 15:28] LABS: Ammonia 15 uMol/L (11-32)
[2024-12-20 15:35] LABS: B-Type Natriuretic Peptide < 20 pg/mL (0-100)
[2024-12-20] MEDS: ACETAMINOPHEN 325 MG TABLET 650 MG PO (15:37)
[2024-12-20] MEDS: ONDANSETRON INJ 2 MG/ML INJ 2 ML 4 MG IVP (15:37)
--- NOTE | 2024-12-20 15:42 | XR_ITS ---
Examination: CT chest with intravenous contrast CT abdomen with intravenous contrast CT pelvis with intravenous contrast 2-D coronal and sagittal reconstructions Time of exam: December 20, 2024 1831 hours Comparison September 01, 2023 INDICATIONS: Generalized chest and abdominal pain today nausea vomiting diarrhea CTDI: vol (mGy) : 6.14. DLP: (mGycm): 404. Technique: Multiple axial images of the chest, abdomen and pelvis with intravenous contrast, 3.0 mm slice thickness. Images obtained post intravenous injection Isovue 370 60 cc. 2-D sagittal and coronal reconstructions. Low dose protocols were performed. One or more of the following dose reduction techniques were used; automated exposure control, adjustment of the mA and/or KV according to patient size, use of iterative reconstruction technique. Findings: Old appearing deformity of the left humeral neck, clinical correlation advised No thoracic or aneurysmal dilatation or dissection No pulmonary artery filling defects on this non-CTA study Moderate calcification left anterior descending coronary artery Trace pericardial thickening No paratracheal tracheobronchial or bronchopulmonary adenopathy. Mild vascular congestion. No lobar pneumonia or pulmonary edema, no pulmonary nodules Liver is irregular in contour, pneumobilia Absent gallbladder No extrahepatic biliary tract dilatation Spleen is not enlarged No pancreatic mass No adrenal mass 21 mm upper pole right renal cyst and 12 mm posterior right renal cyst No renal or ureteral calculi, no hydronephrosis There is moderate hyperemia diffusely involving the colon No pericecal inflammatory change No bowel obstruction Colonic diverticulosis Absent uterus No bladder mass or bladder calculi Severe osteopenia Subacute-appearing mild compression fractures L4, L3 IMPRESSION: Moderate calcification left anterior descending coronary artery Mild vascular congestion No pneumonia pulmonary edema or pulmonary nodules Moderate diffuse nonspecific colitis pattern, differential would include ulcerative colitis, Crohn's disease Subacute-appearing mild compression fractures L4, L3, clinical correlation is advised
[2024-12-20] MEDS: SODIUM CHLORIDE 0.9% 1000 ML 1,000 ML 2000 ML IV (15:59)
--- NOTE | 2024-12-20 16:12 | PC.CC ---
Patient is a 69 year-old female who presents to the hospital for nausea. ASW, Leti and [employer] Student Maryann made [id number] contact with patient. ASW introduced self, role, and reason for visit. Patient appeared alert and oriented to self not to location or situation. At bedside was patient's daughter, Musa Carl . Patient's daughter provided consent for [employer] to remain in the room during assessment. ASW and student completed initial assessment with patient's daughter. Patient's daughter confirmed information on demographics and reports patient currently resides with her granddaughter Julia Rodriguez . Patient has a POA who is her daughter, Musa Brown. Per daughter, the patient is not ambulatory and and requires max assistance with ADLs. Daughter report that they are having difficulty caring for the patient. Patient was recently released from a SNF for 2 months where she was at do to a fall. Patient's daughter reports the family is unable to care for the patient as her needs have increased due to her MS. The patient receives primary care with Dr. Cr in [place]. Pharmacy of choice is [facility]. Patient's daughter is hoping patient will be able to go to a SNF upon discharge. ASW explained process of possible SNF placement. transportation services representative to follow up with any discharge needs.
[2024-12-20 16:14] LABS: Alanine Aminotransferase 12 U/L (10-49); Albumin, Serum 4.1 gm/dL (3.4-4.8); Albumin/Globulin Ratio 1.4 (1.2-2.2); Alcohol, Blood Medical < 10.0 mg/dL (0-10.0); Alkaline Phosphatase 90 U/L (46-116); Anion Gap 18 (7-16); Aspartate Amino Transferase 19 U/L (0-34); BUN/Creatinine Ratio 10 Ratio (12-20); Bilirubin,Total 0.8 mg/dL (0.3-1.2); Blood Urea Nitrogen 6 mg/dL (9-23); Calcium 9.8 mg/dL (8.3-10.6); Calcium (Corrected) 9.8 mg/dL (8.5-10.1); Carbon Dioxide 21.6 mMol/L (20.0-31.0); Chloride 102 mMol/L (98-107); Creatinine (Component) 0.6 mg/dL (0.6-1.3); Globulin 2.9 gm/dL (2.3-3.5); Glucose 115 mg/dL (74-106); Osmolality,Calculated 281 (275-295); Potassium 3.1 mMol/L (3.4-5.1); Procalcitonin < 0.04 ng/ml (0.0-0.49); Sodium 142 mMol/L (136-145); Total Protein 7.0 gm/dL (5.7-8.2); Troponin I < 0.002 ng/mL (0.0-0.045); eGFR > 60 See Note
[2024-12-20] MEDS: VANCOMYCIN/NS 1 GM IVPB 200 ML IV (16:54)
[2024-12-20] MEDS: MEROPENEM INJ 1,000 MG in SODIUM CHLORIDE 0.9% (Popper) 50 ML 100 MG IV (16:55)
[2024-12-20 17:16] LABS: Collection Type, Urine Clean Catch
[2024-12-20] MEDS: METOCLOPRAMIDE INJ 5 MG/ML VIAL 2 ML 10 MG IVP (17:25)
[2024-12-20 17:36] LABS: Amphetamine/Methamp Scrn,U Negative (Negative); Barbiturate Screen,Urine Negative (Negative); Benzodiazepines Screen,Urine Negative (Negative); Benzoylecgonine Screen, Ur Negative (Negative); Fentanyl Screen,Urine Negative (Negative); Opiate Screen,Urine Positive (Negative); THC Screen,Urine Negative (Negative)
[2024-12-20 17:37] LABS: Bilirubin,Urine Negative (Negative); Blood,Urine Negative (Negative); Clarity,Urine Clear (Clear/Hazy); Color,Urine Colorless (Lt Yel-Yel); Culture Indicated,Urine Not Indicated; Glucose, Urine 4+ (Negative); Ketones,Urine 2+ (Negative); Leukocyte Esterase,Urine Negative (Negative); Nitrite,Urine Negative (Negative); PH,Urine 7.0 (5.0-7.0); Protein,Urine Negative (Neg - Trace); RBC,Urine 1 /hpf (0-3); Specific Gravity,Urine 1.010 (1.001-1.035); Squamous Epithelial Cell,Urine < 1 /hpf (0-5); Urobilinogen,Urine Negative mg/dL (0.0-1.0); WBC,Urine 3 /hpf (0-5)
[2024-12-20 18:05] LABS: Reflex Lactate? Y
--- NOTE | 2024-12-20 18:36 | PD.EDADDENDU ---
Emergency Room Addendum Addendum Narrative: 1800: Care assumed from Dr. Garza (emergency physician). Past medical, surgical, social and family history reviewed. Vitals and home medications reviewed. Results and treatment plan discussed. I will assume the care of the patient at this time and will follow the patient, pending chest/abdomen/pelvis CT. RADIOLOGY Chest/Abdomen/Pelvis CT: Patient: SERGO BAZZI. Record#: [id number] Birthdate: 1955 Age/Sex: 69 / F Location: [facility] Attending Dr: Ordering Physician: Tenzin Wells MD Date of Service: 12/20/24 Procedure(s): CT chest abdomen pelvis w Accession Number(s): [id number] cc: Valerie Cr MD; Rashel Ochoa MD; Tenzin Wells MD~ Examination: CT chest with intravenous contrast CT abdomen with intravenous contrast CT pelvis with intravenous contrast 2-D coronal and sagittal reconstructions Time of exam: December 20, 2024 1831 hours Comparison September 01, 2023 INDICATIONS: Generalized chest and abdominal pain today nausea vomiting diarrhea CTDI: vol (mGy) : 6.14. DLP: (mGycm): 404. Technique: Multiple axial images of the chest, abdomen and pelvis with intravenous contrast, 3.0 mm slice thickness. Images obtained post intravenous injection Isovue 370 60 cc. 2-D sagittal and coronal reconstructions. Low dose protocols were performed. One or more of the following dose reduction techniques were used; automated exposure control, adjustment of the mA and/or KV according to patient size, use of iterative reconstruction technique. Findings: Old appearing deformity of the left humeral neck, clinical correlation advised No thoracic or aneurysmal dilatation or dissection No pulmonary artery filling defects on this non-CTA study Moderate calcification left anterior descending coronary artery Trace pericardial thickening No paratracheal tracheobronchial or bronchopulmonary adenopathy. Mild vascular congestion. No lobar pneumonia or pulmonary edema, no pulmonary nodules Liver is irregular in contour, pneumobilia Absent gallbladder No extrahepatic biliary tract dilatation Spleen is not enlarged No pancreatic mass No adrenal mass 21 mm upper pole right renal cyst and 12 mm posterior right renal cyst No renal or ureteral calculi, no hydronephrosis There is moderate hyperemia diffusely involving the colon No pericecal inflammatory change No bowel obstruction Colonic diverticulosis Absent uterus No bladder mass or bladder calculi Severe osteopenia Subacute-appearing mild compression fractures L4, L3 IMPRESSION: Moderate calcification left anterior descending coronary artery Mild vascular congestion No pneumonia pulmonary edema or pulmonary nodules Moderate diffuse nonspecific colitis pattern, differential would include ulcerative colitis, Crohn's disease Subacute-appearing mild compression fractures L4, L3, clinical correlation is advised. Dictated By: Rashel Ochoa MD Signed By: <Electronically signed by Rashel Ochoa MD in [place]> 12/20/24 1920 2105: Assumed care of 69 y/o female who was treated for sepsis w/o definite source. CT however demonstrates moderately diffused colitis. Imperical ABX initiated. Diagnosis at this time is consistent with acute colitis, acute sepsis, and acute hypokalemia. Made contact with hospitalist, patient will be admitted to telemetry for further evaluation, monitoring, and treatment.
[2024-12-20 19:09] VITALS: BP 95/78; PULSE 100; RESP 16; TEMP 37.5; O2SAT 97
[2024-12-20 19:14] LABS: Lactic Acid, 3 HR 2.7 mMol/L (0.4-2.0)
[2024-12-20] MEDS: POTASSIUM CHL 10 mEq IVPB 10 MEQ/100 ML BAG 75 MEQ IV ×2 (19:51→20:50)
--- NOTE | 2024-12-20 19:59 | PC.NURSE ---
this aligner typewriter helped assist with changing pt. in bed. Patient had watery stools.
[2024-12-20] MEDS: SCOPOLAMINE 1 MG TDSY TOP (20:55)
--- NOTE | 2024-12-20 20:58 | PD.RESHP ---
Documentation for date of: 12/20/24 HPI History of Present Illness Chief complaint: Intractable abdominal pain and nausea History of present illness: 69-year-old female with past medical history of hypertension, jyc-szddbxr-bfvypozlr type 2 diabetes, CVA couple years ago, hypothyroidism presenting to the ED on 12/20 with episode of weakness, intractable abdominal pain and nausea. Patient's eldest daughter is bedside and corroborated story. Patient has been having increased weakness for the past month and for the past several days has been experiencing intractable nausea like symptoms and abdominal pain. She has had a recent admission for a fall requiring orthopedic consultation; however, her ambulation has been an issue since her recovery. Patient's daughter states that she normally changes her and has noticed dark stools in the past month on and off. Patient is also having fevers/chills but denies having any chest pain, shortness of breath, hematemesis or hematochezia. Patient has also been having difficulty eating for the past 4 days. She was seen by PCP for these symptoms but is not content with the treatment options provided to her. She has had a colonoscopy about 4 years ago but denies any serious findings at that time. Medical history: As stated above Surgical history: Hysterectomy Allergies: Aspirin, penicillin, morphine, plastic tape Family history: Noncontributory Social history: Patient lives in [place] with her granddaughter, denies any tobacco, alcohol or illicit drug use ROS: All 12 systems assessed and the patient denies unless otherwise stated in HPI In the ED, patient presented normotensive, tachycardic with a heart rate 115, respiratory rate 20, febrile with a temperature 100.5 ?F but saturating 95 on room air. Pertinent lab findings include WBC of 8.0, hemoglobin 14.8, potassium 3.1, lactic acid initially 5.1 improved to 2.7 with IV fluid resuscitation, magnesium 1.2, T. bili 0.8, AST 19, ALT 12, troponin within normal limits, BNP less than 20, lipase 46. Urinalysis showed ketones and glucose but no signs of urinary tract infection. U tox was positive for opiates. Chest x-ray showed no pneumonia or pulmonary edema, head CT was negative for hemorrhage or mass effect, EKG showed sinus tachycardia with no concerning ST changes and CT chest abdomen pelvis showed moderate calcification of the LAD, mild vascular congestion, moderate diffuse nonspecific colitis and subacute appearing mild compression fracture of the L4 L3 region Patient will be admitted for IV fluid resuscitation, GI workup with consultation and stool studies. Exam Vital Signs Temp Pulse Resp BP Pulse Ox O2 Del Method 99.5 F 100 16 95/78 97 Room Air 12/20/24 19:09 12/20/24 19:09 12/20/24 19:09 12/20/24 19:09 12/20/24 19:12/20/24 19:09 Narrative Exam Physical Exam: GENERAL: Awake, answering questions appropriately, appears frail HEENT: NC/AT. Moist mucosa. PERRLA/EOMI. CARDIO: Tachycardic, no obvious murmurs, no JVD. PULM: No coughing or visible SOB. Lungs CTA B/L. GI: Abdomen soft, tender to palpation diffusely but especially in epigastric and left upper quadrant. Guarding evident but no rebound tenderness or rigidity noted. : Rectal exam shows intact rectal tone and no melena appreciated SKIN/MSK/EXT: No wounds/discoloration/rashes/edema/amputations. +Pedal pulses present B/L. NEURO: Oriented x3, Moves extremities x4, no focal neurologic deficits noted Results: Labs 12/20/24 14:46 12/20/24 14:46 Labs: Short CBC 12/20/24 Range/Units 14:46 WBC 8.0 (3.6-11.0) Thou/mm3 Hgb 14.8 (12.0-16.0) g/dL Hct 40.6 (36.0-46.0) % Plt Count 284 (140-440) Thou/mm3 BMP 12/20/24 14:46 Sodium 142 Potassium 3.1 L Chloride 102 Carbon Dioxide 21.6 BUN 6 L Creatinine 0.6 Glucose 115 H Calcium 9.8 Cardiac Enzymes 12/20/24 Range/Units 14:46 Troponin I < 0.002 (0.0-0.045) ng/mL Liver Function 12/20/24 Range/Units 14:46 Total Bilirubin 0.8 (0.3-1.2) mg/dL AST 19 (0-34) U/L ALT 12 (10-49) U/L Alkaline Phosphatase 90 (46-116) U/L Albumin 4.1 (3.4-4.8) gm/dL Urine 07/09/25 Range/Units 17:10 Urine Color Colorless A (Lt Yel-Yel) Urine Clarity Clear (Clear/Hazy) Urine pH 7.0 (5.0-7.0) Ur Specific [place] 1.010 (1.001-1.035) Urine Protein Negative (Neg - Trace) Urine Glucose (UA) 4+ A (Negative) ABG Interpretation ABG results: 12/20/24 14:46 VBG pH 7.52 VBG pCO2 29 L VBG pO2 35 VBG Base Excess 2 Quality Measures Quality Measures none Advance care planning discussed with:: patient Medications Home Medications and Allergies Home Medications ?Medication ?Instructions ?Recorded ?Confirmed ?Type pantoprazole 40 mg tablet,delayed 40 mg PO QDAY ##0 02/07/14 12/21/24 History release (Protonix) levothyroxine 25 mcg tablet 25 mcg PO QDAY 05/06/21 12/21/24 History metformin 500 mg tablet,extended 500 mg PO QID 05/06/21 12/21/24 History release 24 hr ondansetron HCl 4 mg tablet 4 mg PO TID PRN Nausea 05/06/21 12/21/24 History sitagliptin phosphate 25 mg tablet 25 mg PO QDAY 05/06/21 12/21/24 History (Januvia) acetaminophen 300 mg-codeine 30 mg 1 tab PO [id number] PRN Pain 06/22/24 12/21/24 History tablet atorvastatin 20 mg tablet 20 mg PO DAILY 06/22/24 12/21/24 History calcitriol 0.25 mcg capsule 0.25 mcg PO DAILY 06/22/24 12/21/24 History empagliflozin 25 mg tablet 25 mg PO DAILY 06/22/24 12/21/24 History (Jardiance) zolpidem 5 mg tablet 5 mg PO HSPRN PRN Sleep 06/22/24 12/21/24 History Allergies Allergy/AdvReac Type Severity Reaction Status Date / Time morphine Allergy Severe VOMITING Verified 12/21/24 01:05 Penicillins Allergy Severe Hives Verified 12/21/24 01:05 adhesive Allergy Intermediate Rash Verified 12/21/24 01:05 Visit Medications Acetaminophen (Acetaminophen 325 Mg Tablet) 650 mg PO Q6H PRN PRN Reason: PAIN SCALE 1-3 (mild Stop: 01/19/25 20:45 Dextrose (Dextrose 50%-Water Inj 50 Ml Syringe) 25 ml IV Q15MIN PRN PRN Reason: BG 50-70 responsive npo pt Stop: 01/19/25 20:50 Dextrose (Dextrose 50%-Water Inj 50 Ml Syringe) 50 ml IV Q15MIN PRN PRN Reason: BG <50 OR BG <70 & pt unresponsive Stop: 01/19/25 20:50 Glucagon (Glucagon Inj 1 Mg Vial) 1 mg IM Q15MIN PRN PRN Reason: BG <70, and no IV access Potassium Chloride (Kcl Ivpb) 10 meq in 100 mls @ 75 mls/hr IV Q1H ISRA Stop: 12/20/24 20:59 Last Admin: 12/20/24 20:50 Dose: 75 mls/hr Insulin Human Lispro (Insulin Lispro (Admelog) 1 Unit/0.01 Ml Unit) 0 unit SC ACHS ISRA; Protocol Stop: 01/19/25 20:59 Discontinued Medications Acetaminophen (Acetaminophen 325 Mg Tablet) 650 mg PO X1 ONE Stop: 12/20/24 15:27 Last Admin: 12/20/24 15:37 Dose: 650 mg Lactated Ringer's (Lactated Ringers) 1,000 mls @ 999 mls/hr IV .Q1H1M ONE Stop: 12/20/24 15:40 Last Infusion: 12/20/24 16:00 Dose: Infused Sodium Chloride (Ns) 1,000 mls @ 2,000 mls/hr IV .Q30M ONE Stop: 12/20/24 15:20 Last Infusion: 12/20/24 17:00 Dose: Infused Vancomycin/Sodium Chloride (Vancomycin/Ns 1 Gm Ivpb) 200 mls @ 120 mls/hr IV X1 ONE Stop: 12/20/24 16:39 Last Infusion: 12/20/24 18:55 Dose: Infused Meropenem 1,000 mg/ Sodium (Chloride) 50 mls @ 100 mls/hr IV X1 ONE Stop: 12/20/24 15:44 Last Infusion: 12/20/24 18:00 Dose: Infused Metoclopramide HCl (Metoclopramide Inj 5 Mg/Ml Vial 2 Ml) 10 mg IVP X1 ONE; Protocol Stop: 12/20/24 17:15 Last Admin: 12/20/24 17:25 Dose: 10 mg Ondansetron HCl (Ondansetron Inj 2 Mg/Ml Inj 2 Ml) 4 mg IVP X1 ONE; Protocol Stop: 12/20/24 15:27 Last Admin: 12/20/24 15:37 Dose: 4 mg Scopolamine (Scopolamine 1 Mg Tdsy) 1 mg TOP X1 ONE Stop: 12/20/24 20:47 Last Admin: 12/20/24 20:55 Dose: 1 mg Assessment & Plan Plan 69-year-old female with past medical history of hypertension, bhc-ntkmunq-aivokmusq type 2 diabetes, CVA several years ago, hypothyroidism presenting to the ED on 12/20 with episode of weakness, intractable abdominal pain and nausea will be admitted for IV fluid resuscitation, GI workup with consultation and stool studies. #Nonspecific colitis #Possible upper versus lower GI bleed? As noted above, patient is presenting with abdominal pain and nausea/vomiting, patient is currently retching and not actively making any vomitus Patient has had colonoscopy in the past which was largely negative As per HPI, patient's daughter states that she has been having dark tarry stools but hemoglobin is currently stable On examination, patient does have low-grade fever and tachycardia without any WBC elevation Chest x-ray showed no pneumonia or pulmonary edema, head CT was negative for hemorrhage or mass effect, EKG showed sinus tachycardia with no concerning ST changes and CT chest abdomen pelvis showed moderate calcification of the LAD, mild vascular congestion, moderate diffuse nonspecific colitis In the ED patient given meropenem and Vanco?? Plan: GI consulted, appreciate recommendations Stool studies including stool WBC, calprotectin, stool culture, Giardia and C. difficile Will hold off on antibiotics at that time as the patient does not have elevated WBC Scopolamine patch for nausea Follow-up on blood cultures #Starvation ketosis vs. Euglycemic DKA? #Electrolyte abnormalities #Zgh-dvjkhbn-otbwofepg type 2 diabetes Patient has low potassium and magnesium Ketones and glucose noted in urine with an anion gap of 18 Patient does take Jardiance for type 2 diabetes as noted below but bedside glucoses have been on the lower end B-hydorxybutyrate elevated Last A1c on file 8.1 on 01/2024 Plan: Replete electrolytes as given IV fluid resuscitation with 100 cc an hour of D5/LR for 1 bag (1 L) Glucose checks Q4h Dietitian consultation Sliding scale insulin #Hypothyroidism Patient on home levothyroxine Plan: Restarted home medication #Hypertension #History of CVA Patient on home Plavix 75 mg p.o. daily, pending official med rec Plan: Will hold antiplatelets as there is some concern for GI bleed as noted above Restart home antihypertensives when appropriate #Subacute mild compression fraction of the L3-L4 region CT finding, patient states it is a known diagnosis Rectal tone intact Plan: Monitor for any acute changes PT consultation #Depression/anxiety Patient on BuSpar 50 mg p.o. twice daily Patient also takes zolpidem 5 mg for sleep Plan: Restart home medications Consider starting sleep aid if necessary Health Maintenance: Lines: PIV Diet: Clear liquid Bowel: Not needed GI prophylaxis: IV Protonix 40 twice daily DVT prophylaxis: SCD Dispo: GI workup, stool workup and IV fluid resuscitation Code: Full Patient seen and assessed with attending Dr. Chris Villatoro DO PGY-2 Internal Medicine - GME Attending Provider Attestation/Addendum After examination of the patient and review of the clinical data I feel that this patient needs admission to the hospital for further treatment/evaluation. I have discussed and was present for the essential components of the history, physical examination, diagnosis, and treatment plan with the resident. I agree with the patient's care as documented by the resident and amended herein by me. Jaiden Perez DO. Although this document has been carefully reviewed, there may still be some phonetic and other typographical errors. These errors are purely grammatical due to imperfections in the software program and should not be construed in any way to compromise the substance of the patient's medical care during this visit. Patient seen and evaluated in the ED. The patient is a 69-year-old female with a significant past medical history of TIA, NIDDM, hypothyroidism, MS and frequent falls, who presented to the ED for intractable nausea and abdominal pain which, per the patient's daughter at bedside, has been going on for nearly 1 month. There was also reports of black tarry stools. The patient has also had very loose stools, at least 3 in the last 24 hours. There is also documentation of possible syncope however the patient did not endorse this to me directly. In the ED, blood pressure was on the softer side 95/78 mmHg, SpO2 97% on room air. CBC unremarkable with a normal hemoglobin. Potassium was low at 3.1, CT head was negative for any acute intracranial pathology and acute stroke. CT abdomen and pelvis was significant for colitis and subacute fractures of L3/L4 which the patient knew about for quite some time secondary to a fall. Anion gap was elevated at 18, lactic acid 2.7, urinalysis significant for ketonuria. Patient will be admitted to med/tele for intractable nausea, abdominal pain, likely starvation ketosis although the patient may also have euglycemic DKA considering she is on an SGLT2 inhibitor. I am leaning more towards starvation ketosis at this time considering her glucose was in the low normal range, she was not acidotic, her bicarb was WNL, and her beta hydroxybutyrate was mild to moderately elevated, and she endorsed she has not eaten in 4 to 5 days with the exception of some broth.. As such we did consult gastroenterology for any potential bleed, I also started the patient on D5 LR 100 mL/h, hopefully this will improve the acidosis restarting insulin secretion and closing the gap on its own. If the patient worsens, we may need to place the patient on insulin drip, we did place every 4 hour Accu-Cheks and will repeat a VBG later on to reassess, we will also order every 4 hours BMP to ensure gap is closing. For potential GIB, the patient has been started on Protonix IV, 80 mg bolus and 40 mg IV every 12 hours thereafter. Diet will consist of clear liquids only for now, the ED did order blood cultures which we can follow-up on and I did hold the patient's Plavix which I am assuming she is on for previous CVA/TIA however she was unsure. Will continue to monitor closely
[2024-12-20 21:34] LABS: Magnesium 1.2 mg/dL (1.6-2.6)
[2024-12-20 22:01] VITALS: BP 90/71; PULSE 108; RESP 19; TEMP 36.9; O2SAT 96
[2024-12-20 23:34] LABS: Lactate (Lactic Acid) 1.0 mMol/L (0.4-2.0)
--- NOTE | 2024-12-20 23:38 | PD.IMCONS ---
HPI Data of Consult Requesting Physician: Alex Perez DO Primary Care Provider: Valerie Cr MD Consult Narrative Reason for consult: Nausea vomiting weakness abnormal CT scan A/P History of present illness: 69 years of female presented to the hospital with weakness nausea vomiting and according to daughter having dark stools off-and-on for the last [address] scan of the abdomen pelvis with contrast showed moderate nonspecific colitis and compression fracture L3-4 Patient does have a history of essential hypertension NIDDM CVA hypothyroidism and she is post hysterectomy cc:: cc: Alex Perez DO Review of Systems Review of Systems Systems Reviewed: All systems reviewed, normal except as documented Past Medical History Surgical History OTHER SURGICAL HX: As in the history of present illness Meds Home Medications and Allergies Home Medications ?Medication ?Instructions ?Recorded ?Confirmed ?Type pantoprazole 40 mg tablet,delayed 40 mg PO QDAY ##0 02/07/14 10/10/24 History release (Protonix) levothyroxine 25 mcg tablet 25 mcg PO QDAY 05/06/21 10/10/24 History metformin 500 mg tablet,extended 500 mg PO QID 05/06/21 10/10/24 History release 24 hr ondansetron HCl 4 mg tablet 4 mg PO TID PRN Nausea 05/06/21 10/10/24 History sitagliptin phosphate 25 mg tablet 25 mg PO QDAY 05/06/21 10/10/24 History (Januvia) acetaminophen 300 mg-codeine 30 mg 1 tab PO [id number] PRN Pain 06/22/24 10/10/24 History tablet atorvastatin 20 mg tablet 20 mg PO DAILY 06/22/24 10/10/24 History calcitriol 0.25 mcg capsule 0.25 mcg PO DAILY 06/22/24 10/10/24 History empagliflozin 25 mg tablet 25 mg PO DAILY 06/22/24 10/10/24 History (Jardiance) zolpidem 5 mg tablet 5 mg PO HSPRN PRN Sleep 06/22/24 10/10/24 History Allergies Allergy/AdvReac Type Severity Reaction Status Date / Time morphine Allergy Severe VOMITING Verified 10/10/24 13:09 Penicillins Allergy Severe Hives Verified 10/10/24 13:09 adhesive Allergy Intermediate Rash Verified 10/10/24 13:09 Exam Vital Signs Temp Pulse Resp BP Pulse Ox O2 Del Method 98.5 F 108 H 19 90/71 96 Room Air 12/20/24 22:01 12/20/24 22:01 12/20/24 22:01 12/20/24 22:01 12/20/24 22:01 12/20/24 22:01 Constitutional Comments: Chronically ill-appearing Routine Respiratory Exam Comments: Normal to auscultation Routine Abdominal Exam Comments: Soft nontender Results Labs 12/20/24 14:46 12/20/24 14:46 Labs: Short CBC 12/20/24 Range/Units 14:46 WBC 8.0 (3.6-11.0) Thou/mm3 Hgb 14.8 (12.0-16.0) g/dL Hct 40.6 (36.0-46.0) % Plt Count 284 (140-440) Thou/mm3 BMP 12/20/24 14:46 Sodium 142 Potassium 3.1 L Chloride 102 Carbon Dioxide 21.6 BUN 6 L Creatinine 0.6 Glucose 115 H Calcium 9.8 Cardiac Enzymes 12/20/24 Range/Units 14:46 Troponin I < 0.002 (0.0-0.045) ng/mL Liver Function 12/20/24 Range/Units 14:46 Total Bilirubin 0.8 (0.3-1.2) mg/dL AST 19 (0-34) U/L ALT 12 (10-49) U/L Alkaline Phosphatase 90 (46-116) U/L Albumin 4.1 (3.4-4.8) gm/dL Urine 12/20/24 Range/Units 17:10 Urine Color Colorless A (Lt Yel-Yel) Urine Clarity Clear (Clear/Hazy) Urine pH 7.0 (5.0-7.0) Ur Specific [place] 1.010 (1.001-1.035) Urine Protein Negative (Neg - Trace) Urine Glucose (UA) 4+ A (Negative) ABG Interpretation ABG results: 12/20/24 14:46 VBG pH 7.52 VBG pCO2 29 L VBG pO2 35 VBG Base Excess 2 Assessment and Plan Additional Assessment & Plan Additional Plan: # Multiple GI symptoms of nausea vomiting pain abdomen abnormal CT scan of the abdomen pelvis which has been persistent for quite some time Suggestions Initial test of choice is fiberoptic esophagogastroduodenoscopy with possible biopsy possible therapeutic intervention under intravenous moderate sedation scheduled for tomorrow N.p.o. tomorrow at 10 AM that patient can have clear liquid diet Patient will also undergo fiberoptic colonoscopy after GoLytely prep to rule out any evidence of underlying inflammatory bowel disease or microscopic colitis or ischemic colitis Will follow the patient Other medical problems include Essential hypertension Diabetes mellitus type 2 CVA Hypothyroidism Post hysterectomy
[2024-12-20 23:45] LABS: Base Excess, Venous -2 (-3-3); O2 Saturation, Venous 98 % (96-97); PCO2, Venous 32 mmHg (36-56); PO2, Venous 95 mmHg (15-58); pH, Venous 7.42 (7.33-7.66)
[2024-12-21] VITALS (15 sets, daily range): BP systolic 93–138; BP diastolic 60–97; PULSE 78–105; RESP 14–21; TEMP 36.3–36.7; O2SAT 19–99; BMI 22.7
[2024-12-21] MEDS: DEXTROSE 5%-LACTATED RINGERS 1,000 ML 100 ML IV (00:28)
[2024-12-21] MEDS: POTASSIUM CHL 10 mEq IVPB 10 MEQ/100 ML BAG 75 MEQ IV ×2 (00:28→01:22)
[2024-12-21] MEDS: Magnesium Sulfate 4 GM Ivpb 4 GM/50 ML BAG IV ×2 (00:29→09:12)
[2024-12-21 00:42] LABS: Beta Hydroxybutyrate 3.8 mmol/L (<0.6)
[2024-12-21] MEDS: HYDROcodone/APAP 5/325 TABLET 1 TAB PO (01:10)
[2024-12-21 02:24] LABS: Anion Gap 15 (7-16); BUN/Creatinine Ratio 13 Ratio (12-20); Blood Urea Nitrogen 5 mg/dL (9-23); Calcium 8.7 mg/dL (8.3-10.6); Carbon Dioxide 20.7 mMol/L (20.0-31.0); Chloride 106 mMol/L (98-107); Creatinine (Component) 0.4 mg/dL (0.6-1.3); Estimated Creatinine Clearance 97.3 mL/min (>60); Glucose 100 mg/dL (74-106); Osmolality,Calculated 280 (275-295); Potassium 3.1 mMol/L (3.4-5.1); Sodium 142 mMol/L (136-145); eGFR > 60 See Note
[2024-12-21] MEDS: LEVOTHYROXINE SODIUM 25 MCG TABLET PO (06:06)
[2024-12-21] MEDS: POTASSIUM CHL 10 mEq IVPB 10 MEQ/100 ML BAG 100 MEQ IV ×3 (06:06→10:16)
[2024-12-21 06:31] LABS: Basophils # (Auto) 0.0 Thou/mm3 (0.0-0.2); Basophils % (Auto) 0 % (0-2.5); Eosinophils # (Auto) 0.1 Thou/mm3 (0.0-0.5); Eosinophils % (Auto) 1 % (0-10); Hematocrit 36.4 % (36.0-46.0); Hemoglobin 12.9 g/dL (12.0-16.0); Immature Granulocytes Auto 0.02 Thou/mm3 (0.00-0.00); Lymphocytes # (Auto) 4.0 Thou/mm3 (1.0-4.8); Lymphocytes % (Auto) 42 % (10-50); Mean Corpuscular HGB Conc 35.4 g/dl (31.0-37.0); Mean Corpuscular Hemoglobin 31.0 pg (25.0-35.0); Mean Corpuscular Volume 88 fL (80-100); Monocytes # (Auto) 0.8 Thou/mm3 (0.0-0.8); Monocytes % (Auto) 8 % (0-12); Neutrophils # (Auto) 4.7 Thou/mm3 (1.8-7.7); Neutrophils % (Auto) 49 % (37-80); Nucleated Red Blood Cell # 0.00 Thou/mm3 (0.00-0.00); Nucleated Red Blood Cell % 0 /100 WBC (0); Platelet Count 258 Thou/mm3 (140-440); RDW Standard Deviation 42.8 fL (36.4-46.3); Red Blood Count 4.16 Miln/mm3 (4.00-5.20); White Blood Count 9.6 Thou/mm3 (3.6-11.0)
[2024-12-21 07:08] LABS: Alanine Aminotransferase 9 U/L (10-49); Albumin, Serum 3.6 gm/dL (3.4-4.8); Albumin/Globulin Ratio 1.4 (1.2-2.2); Alkaline Phosphatase 76 U/L (46-116); Anion Gap 14 (7-16); Aspartate Amino Transferase 15 U/L (0-34); BUN/Creatinine Ratio 10 Ratio (12-20); Bilirubin,Total 0.6 mg/dL (0.3-1.2); Blood Urea Nitrogen 5 mg/dL (9-23); Calcium 8.5 mg/dL (8.3-10.6); Calcium (Corrected) 8.8 mg/dL (8.5-10.1); Carbon Dioxide 22.8 mMol/L (20.0-31.0); Chloride 105 mMol/L (98-107); Creatinine (Component) 0.5 mg/dL (0.6-1.3); Estimated Creatinine Clearance 77.9 mL/min (>60); Globulin 2.5 gm/dL (2.3-3.5); Glucose 120 mg/dL (74-106); Osmolality,Calculated 281 (275-295); Phosphorous 3.4 mg/dL (2.4-5.1); Potassium 3.0 mMol/L (3.4-5.1); Sodium 142 mMol/L (136-145); Total Protein 6.1 gm/dL (5.7-8.2); eGFR > 60 See Note
[2024-12-21 07:13] LABS: Glucose Estimated Average 117 mg/dL (80-131); Hemoglobin A1C 5.7 % Hgb (4.8-6.0)
--- NOTE | 2024-12-21 07:50 | ESPR_ITS ---
<Statement entered by Annabella Mayer MD - 01/01/25 14:15> I reviewed above note and agree with findings and plans. I have also personally examined the patient with medicine team and went over assessment and plan with medical team including clinical nursing intern and resident physician. Documentation for date of: 12/21/24 Subjective Subjective Interval history: No acute events overnight. Patient seen and examined at bedside this AM. Patient was sleeping upon my arrival. Reports that she had small bowel movement last night, also dark stool. Notices abdominal pain, denies chest pain, shortness of breath. Reports nausea when eating. Labs and vitals were reviewed. White blood cell count increased to 9.6 from 8.0 on admission however still within normal limits. Hemoglobin dropped to 12.9, was 14.[address] was positive for colitis. Magnesium was low at 1.2, repleted. Anion gap improved now 14. Plan for upper and lower endoscopy today per GI specialist Dr. Jiang, made n.p.o. after clear liquid diet breakfast. Review of systems otherwise negative except what is mentioned above. Exam Vital Signs Temp Pulse Resp BP Pulse Ox O2 Del Method 97.9 F 96 14 132/80 H 98 Room Air 12/21/24 04:00 12/21/24 04:00 12/21/24 04:00 12/21/24 04:00 12/21/24 04:00 12/21/24 04:00 Narrative Exam Physical Exam General: Awake and in no acute distress. Conversational. Laying in bed, in position. Sleeping upon arrival. HEENT: Normocephalic, atraumatic, mucous membranes moist. Heart: Regular rate and rhythm, normal S1 and S2, no murmurs. Lungs: Clear to auscultation with no wheezing or crackles. Abdomen: Soft, nondistended, positive bowel sounds. RUQ and LLQ tenderness on palpation. No guarding or rebound tenderness. Neurologic: Alert and oriented x3, no gross neurological deficit, and patient able to move all 4 extremities. Extremities: No edema. Skin: No rash or ecchymoses. Objective Labs 12/23/24 05:56 12/23/24 05:56 Labs: Laboratory Results - last 24 hr 12/20/24 12/20/24 12/20/24 14:03 14:46 17:10 WBC 8.0 RBC 4.75 Hgb 14.8 Hct 40.6 MCV 86 MCH 31.2 MCHC 36.5 RDW Std Deviation 41.1 Plt Count 284 Neut % (Auto) 70 Lymph % (Auto) 23 Lynn % (Auto) 6 Eos % (Auto) 0 Baso % (Auto) 0 Neut # (Auto) 5.6 Lymph # (Auto) 1.9 Lynn # (Auto) 0.5 Eos # (Auto) 0.0 Baso # (Auto) 0.0 Immature Gran # (Auto) 0.03 H Absolute Nucleated RBC 0.00 Immature Gran % 0 Nucleated RBC % 0 PT 12.6 H INR 1.2 VBG pH 7.52 VBG pCO2 29 L VBG pO2 35 VBG O2 Sat (Paolo) 76 L VBG Base Excess 2 Sodium 142 Potassium 3.1 L Chloride 102 Carbon Dioxide 21.6 Anion Gap 18 H BUN 6 L Creatinine 0.6 Estim Creat Clear Calc Not Performed. eGFR > 60 BUN/Creatinine Ratio 10 L Glucose [address] Glu mg/dL Hemoglobin A1c Calculated Osmolality 281 Lactic Acid 5.1 H* Calcium 9.8 Corrected Calcium 9.8 Phosphorus Magnesium Total Bilirubin 0.8 AST 19 ALT 12 Alkaline Phosphatase 90 Ammonia 15 Troponin I < 0.002 B-Natriuretic Peptide < 20 Total Protein 7.0 Albumin 4.1 Globulin 2.9 Albumin/Globulin Ratio 1.4 Beta-Hydroxybutyrate/Acetoacetate Procalcitonin < 0.04 Ur Collection Type Clean Catch Urine Color Colorless A Urine Clarity Clear Urine pH 7.0 Ur Specific [place] 1.010 Urine Protein Negative Urine Glucose (UA) 4+ A Urine Ketones 2+ A Urine Blood Negative Urine Nitrite Negative Urine Bilirubin Negative Urine Urobilinogen (Auto) Negative Ur Leukocyte Esterase Negative Urine RBC 1 Urine WBC 3 Ur Squamous Epith Cells < 1 Urine Bacteria None Ur Culture Indicated? Not Indicated Urine Opiates Screen Positive A Urine Fentanyl Screen Negative Ur Barbiturates Screen Negative U Amphetamin/Meth Scrn Negative U Benzodiazepines Scrn Negative U Cocaine Metab Screen Negative U Marijuana (THC) Screen Negative Ethyl Alcohol < 10.0 Blood Type A Positive Antibody Screen NEGATIVE Blood Bank Wristband ID Yes 12/20/24 12/20/24 12/21/24 19:05 23:26 00:00 WBC RBC Hgb Hct MCV MCH MCHC RDW Std Deviation Plt Count Neut % (Auto) Lymph % (Auto) Lynn % (Auto) Eos % (Auto) Baso % (Auto) Neut # (Auto) Lymph # (Auto) Lynn # (Auto) Eos # (Auto) Baso # (Auto) Immature Gran # (Auto) Absolute Nucleated RBC Immature Gran % Nucleated RBC % PT INR VBG pH 7.42 VBG pCO2 32 L VBG pO2 95 H D VBG O2 Sat (Paolo) 98 H VBG Base Excess -2 Sodium Potassium Chloride Carbon Dioxide Anion Gap BUN Creatinine Estim Creat Clear Calc eGFR BUN/Creatinine Ratio Glucose Estimated Ave Glu mg/dL Hemoglobin A1c Calculated Osmolality Lactic Acid 2.7 H 1.0 Calcium Corrected Calcium Phosphorus Magnesium 1.2 L Total Bilirubin AST ALT Alkaline Phosphatase Ammonia Troponin I B-Natriuretic Peptide Total Protein Albumin Globulin Albumin/Globulin Ratio Beta-Hydroxybutyrate/Acetoacetate 3.8 H Procalcitonin Ur Collection Type Urine Color Urine Clarity Urine pH Ur Specific [place] Urine Protein Urine Glucose (UA) Urine Ketones Urine Blood Urine Nitrite Urine Bilirubin Urine Urobilinogen (Auto) Ur Leukocyte Esterase Urine RBC Urine WBC Ur Squamous Epith Cells Urine Bacteria Ur Culture Indicated? Urine Opiates Screen Urine Fentanyl Screen Ur Barbiturates Screen U Amphetamin/Meth Scrn U Benzodiazepines Scrn U Cocaine Metab Screen U Marijuana (THC) Screen Ethyl Alcohol Blood Type Antibody Screen Blood Bank Wristband ID 12/21/24 12/21/24 01:29 05:45 WBC 9.6 RBC 4.16 Hgb 12.9 Hct 36.4 MCV 88 MCH 31.0 MCHC 35.4 RDW Std Deviation 42.8 Plt Count 258 Neut % (Auto) 49 Lymph % (Auto) 42 Lynn % (Auto) 8 Eos % (Auto) 1 Baso % (Auto) 0 Neut # (Auto) 4.7 Lymph # (Auto) 4.0 Lynn # (Auto) 0.8 Eos # (Auto) 0.1 Baso # (Auto) 0.0 Immature Gran # (Auto) 0.02 H Absolute Nucleated RBC 0.00 Immature Gran % 0 Nucleated RBC % 0 PT INR VBG pH VBG pCO2 VBG pO2 VBG O2 Sat (Paolo) VBG Base Excess Sodium 142 142 Potassium 3.1 L 3.0 L Chloride 106 105 Carbon Dioxide 20.7 22.8 Anion Gap 15 14 BUN 5 L 5 L Creatinine 0.4 L 0.5 L Estim Creat Clear Calc 97.3 77.9 eGFR > 60 > 60 BUN/Creatinine Ratio 13 10 L Glucose [address] Glu mg/dL 117 Hemoglobin A1c 5.7 Calculated Osmolality 280 281 Lactic Acid Calcium 8.7 8.5 Corrected Calcium 8.8 Phosphorus 3.4 Magnesium Total Bilirubin 0.6 AST 15 ALT 9 L Alkaline Phosphatase 76 Ammonia Troponin I B-Natriuretic Peptide Total Protein 6.1 Albumin 3.6 D Globulin 2.5 Albumin/Globulin Ratio 1.4 Beta-Hydroxybutyrate/Acetoacetate Procalcitonin Ur Collection Type Urine Color Urine Clarity Urine pH Ur Specific [place] Urine Protein Urine Glucose (UA) Urine Ketones Urine Blood Urine Nitrite Urine Bilirubin Urine Urobilinogen (Auto) Ur Leukocyte Esterase Urine RBC Urine WBC Ur Squamous Epith Cells Urine Bacteria Ur Culture Indicated? Urine Opiates Screen Urine Fentanyl Screen Ur Barbiturates Screen U Amphetamin/Meth Scrn U Benzodiazepines Scrn U Cocaine Metab Screen U Marijuana (THC) Screen Ethyl Alcohol Blood Type Antibody Screen Blood Bank Wristband ID ABG Interpretation ABG results: 12/20/24 12/20/24 14:46 23:26 VBG pH 7.52 7.42 VBG pCO2 29 L 32 L VBG pO2 35 95 H D VBG Base Excess 2 -2 Quality Measures Quality Measures none Advance care planning discussed with:: patient Assessment & Plan Assessment Current Active Medications: Generic Name Dose Route Start Last Admin Trade Name Freq PRN Reason Stop Dose Admin Acetaminophen 650 mg 12/20/24 20:46 Acetaminophen 325 Mg Tablet PO 01/19/25 20:45 Q6H PRN PAIN SCALE 1-3 (mild Buspirone HCl 15 mg 12/21/24 09:00 Buspirone Hcl 5 Mg Tablet PO 01/20/25 08:59 BID ISRA Dextrose 25 ml 12/20/24 20:51 Dextrose 50%-Water Inj 50 Ml Syringe IV 01/19/25 20:50 Q15MIN PRN BG 50-70 responsive npo pt Dextrose 50 ml 12/20/24 20:51 Dextrose 50%-Water Inj 50 Ml Syringe IV 01/19/25 20:50 Q15MIN PRN BG <50 OR BG <70 & pt unresponsive Glucagon 1 mg 12/20/24 20:51 Glucagon Inj 1 Mg Vial IM Q15MIN PRN BG <70, and no IV access Magnesium Sulfate 4 gm in 50 mls @ 12.5 mls/hr 12/21/24 07:00 Magnesium Sulfate Ivpb IV 12/21/24 10:59 X1 ONE Dextrose/Lactated Ringer's 1,000 mls @ 100 mls/hr 12/20/24 23:45 12/21/24 00:28 D5-Lr IV 12/21/24 09:44 100 mls/hr .Q10H ISRA Administration Potassium Chloride 10 meq in 100 mls @ 100 mls/hr 12/21/24 04:07 12/21/24 06:06 Kcl Ivpb IV 12/21/24 08:06 100 mls/hr Q1H ISRA Administration Insulin Human Lispro 0 unit 12/20/24 21:00 12/20/24 21:46 Insulin Lispro (Admelog) 1 Unit/0.01 Ml Unit SC 01/19/25 20:59 Not Given ACHS ISRA Protocol Levothyroxine Sodium 25 mcg 12/21/24 06:00 12/21/24 06:06 Levothyroxine Sodium 25 Mcg Tablet PO 01/20/25 05:59 25 mcg ACBR ISRA Administration Pantoprazole Sodium 40 mg 12/21/24 09:00 Pantoprazole Inj 40 Mg Vial IVP 01/20/25 08:59 BID ISRA Plan Patient is a 69-year-old female with past medical history of hypertension, [id number] type 2 diabetes, CVA, and hypothyroidism presenting to the ED on 12/20 with episode of weakness, intractable abdominal pain and nausea, will be admitted with upper GI bleed and concern for starvation ketosis versus euglycemic DKA. #Nonspecific colitis #Possible upper GI bleed Presented with abdominal pain and nausea/vomiting. Has had dark tarry stools but hemoglobin is currently stable. On admission, patient was afebrile but white blood cell count was within normal limits. EKG, chest x-ray, CT head were unremarkable. CT chest abdomen pelvis showed moderate calcification of the LAD, mild vascular congestion, moderate diffuse nonspecific colitis. Patient was started on meropenem and vancomycin however was discontinued. Will plan to start antibiotics as patient was tender on physical exam and white blood cell count increased. Plan: - GI consulted, appreciate recommendations - Plan for upper and lower endoscopy today - N.p.o. after clear liquid diet breakfast - Pending stool studies including stool WBC, calprotectin, stool culture, Giardia and C. difficile - Will start on metronidazole and ceftriaxone - Scopolamine patch for nausea - Pending blood cultures #Starvation ketosis vs. Euglycemic DKA? #Electrolyte abnormalities #Hqy-hnhzwam-jfpxvvlbu type 2 diabetes On admission, patient had low potassium and magnesium, ketones and glucose noted in urine with an anion gap of 18. Does take Jardiance for type 2 diabetes, has been compliant per patient. B-hydorxybutyrate elevated at 3.8. Last A1c on file 8.1 on 01/2024. Anion gap improved. Plan: ?Replete electrolytes as needed ?Continue IV fluid resuscitation with 100 cc an hour of D5/LR for 1 bag (1 L) ?Glucose checks Q4h ?Dietary consulted, appreciate recommendations ?Sliding scale insulin #Hypothyroidism Patient on home levothyroxine Plan: ?Restarted home dose levothyroxine #Hypertension #History of CVA Patient on home Plavix 75 mg p.o. daily. Patient has been relatively normotensive. Plan: ? Pending official med rec ?Will hold antiplatelets as there is some concern for GI bleed as noted above ?Restart home antihypertensives when appropriate #Subacute mild compression fracture of the L3-L4 region Per CT. Patient had a recent admission for fall require orthopedic consult for this compression fracture. Patient has had trouble walking since, requires assistance from daughter at home bed to bathroom. Per physical exam during admission, rectal tone intact. Plan: ?Monitor for any acute changes ?PT consulted, appreciate recommendations ? Monitor pain, escalate medications if necessary #Depression/anxiety Patient on BuSpar 50 mg p.o. twice daily Patient also takes zolpidem 5 mg for sleep Plan: ?Restart home medications ?Consider starting sleep aid if necessary Health Maintenance: Lines: PIV Diet: Clear liquid, NPO after breakfast Bowel: Simethicone GI prophylaxis: IV Protonix 40 twice daily DVT prophylaxis: SCD Dispo: GI workup, stool workup and IV fluid resuscitation Code: Full Patient plan of care was discussed with the senior resident, Dr. Lee, and attending physician, Dr. Mayer. Laura Shepard, PGY-1 Senior resident attestation: Patient evaluated and examined at the bedside, plan of care discussed with rest of the team including my attending physician, except as noted. Patient is a 69-year-old female, came in with severe nausea vomiting and retching, concern for colitis on initial imaging, gastroenterology consulted, recommended EGD and colonoscopy. Unable to tolerate food due to nausea, Zofran as needed. Currently n.p.o. for EGD. Jesus PGY3
[2024-12-21 09:25] LABS: Anion Gap 12 (7-16); BUN/Creatinine Ratio 12 Ratio (12-20); Blood Urea Nitrogen 6 mg/dL (9-23); Calcium 8.3 mg/dL (8.3-10.6); Carbon Dioxide 25.2 mMol/L (20.0-31.0); Chloride 106 mMol/L (98-107); Creatinine (Component) 0.5 mg/dL (0.6-1.3); Estimated Creatinine Clearance 77.9 mL/min (>60); Glucose 127 mg/dL (74-106); Osmolality,Calculated 284 (275-295); Potassium 3.1 mMol/L (3.4-5.1); Sodium 143 mMol/L (136-145); eGFR > 60 See Note
--- NOTE | 2024-12-21 11:11 | PC.PT ---
Attempt to initiate PT evaluation due to daughter unable to care for the patient at home and will be referred to SNF. Patient was approached at 1100. History taken and patient lives with [facility]. As per patient she uses [facility] for household distance and [facility] for community distance. Patient seems upset during conversation. Explain the purpose of PT evaluation. Patient adamantly refused SNF. Patient states she will be going back home. Patient refused today.
[2024-12-21] MEDS: ONDANSETRON INJ 2 MG/ML INJ 2 ML 4 MG IVP ×2 (12:58→17:08)
[2024-12-21] MEDS: SIMETHICONE 80 MG CHEW PO (12:59)
--- NOTE | 2024-12-21 17:05 | PC.NURSE ---
DR. LUNA MADE AWARE PATIENT C/O NAUSEA AND DRY HEAVES, ORDER RECEIVED, READ BACK , AND CARRIED OUT.
[2024-12-21] MEDS: metroNIDAZOLE/NS 500 MG IVPB 500 MG/100 ML BAG 200 MG IV ×2 (17:35→21:51)
[2024-12-21] MEDS: cefTRIAXone/D5w 1gm IV premix 1 GM/50 ML BAG IV (17:35)
[2024-12-21] MEDS: ACETAMINOPHEN 325 MG TABLET 650 MG PO (21:49)
[2024-12-21] MEDS: NA SU/NAHCO3/KC/PEG (Golytely) 4,000 ML BTL 4000 ML PO (21:50)
[2024-12-22] VITALS (7 sets, daily range): BP systolic 107–129; BP diastolic 57–88; PULSE 72–101; RESP 16–20; TEMP 36.1–36.4; O2SAT 96–99; BMI 22.8
[2024-12-22] MEDS: ONDANSETRON INJ 2 MG/ML INJ 2 ML 4 MG IVP ×2 (02:48→08:30)
[2024-12-22] MEDS: KETOROLAC INJ 30 MG/ML VIAL 15 MG IVP (03:01)
[2024-12-22] MEDS: metroNIDAZOLE/NS 500 MG IVPB 500 MG/100 ML BAG 200 MG IV ×3 (05:15→21:43)
[2024-12-22] MEDS: LEVOTHYROXINE SODIUM 25 MCG TABLET PO (05:15)
[2024-12-22 06:18] LABS: Basophils # (Auto) 0.0 Thou/mm3 (0.0-0.2); Basophils % (Auto) 0 % (0-2.5); Eosinophils # (Auto) 0.1 Thou/mm3 (0.0-0.5); Eosinophils % (Auto) 2 % (0-10); Hematocrit 36.6 % (36.0-46.0); Hemoglobin 13.0 g/dL (12.0-16.0); Immature Granulocytes Auto 0.02 Thou/mm3 (0.00-0.00); Lymphocytes # (Auto) 3.3 Thou/mm3 (1.0-4.8); Lymphocytes % (Auto) 45 % (10-50); Mean Corpuscular HGB Conc 35.5 g/dl (31.0-37.0); Mean Corpuscular Hemoglobin 31.3 pg (25.0-35.0); Mean Corpuscular Volume 88 fL (80-100); Monocytes # (Auto) 0.6 Thou/mm3 (0.0-0.8); Monocytes % (Auto) 8 % (0-12); Neutrophils # (Auto) 3.2 Thou/mm3 (1.8-7.7); Neutrophils % (Auto) 44 % (37-80); Nucleated Red Blood Cell # 0.00 Thou/mm3 (0.00-0.00); Nucleated Red Blood Cell % 0 /100 WBC (0); Platelet Count 239 Thou/mm3 (140-440); RDW Standard Deviation 43.3 fL (36.4-46.3); Red Blood Count 4.15 Miln/mm3 (4.00-5.20); White Blood Count 7.3 Thou/mm3 (3.6-11.0)
[2024-12-22] MEDS: METOCLOPRAMIDE INJ 5 MG/ML VIAL 2 ML 2.5 MG IVP (06:36)
[2024-12-22 07:06] LABS: Alanine Aminotransferase 10 U/L (10-49); Albumin, Serum 3.6 gm/dL (3.4-4.8); Albumin/Globulin Ratio 1.4 (1.2-2.2); Alkaline Phosphatase 79 U/L (46-116); Anion Gap 16 (7-16); Aspartate Amino Transferase 18 U/L (0-34); BUN/Creatinine Ratio 15 Ratio (12-20); Bilirubin,Total 0.6 mg/dL (0.3-1.2); Blood Urea Nitrogen 6 mg/dL (9-23); Calcium 8.5 mg/dL (8.3-10.6); Calcium (Corrected) 8.8 mg/dL (8.5-10.1); Carbon Dioxide 20.7 mMol/L (20.0-31.0); Chloride 105 mMol/L (98-107); Creatinine (Component) 0.4 mg/dL (0.6-1.3); Estimated Creatinine Clearance 97.3 mL/min (>60); Globulin 2.6 gm/dL (2.3-3.5); Glucose 81 mg/dL (74-106); Magnesium 1.3 mg/dL (1.6-2.6); Osmolality,Calculated 279 (275-295); Phosphorous 2.5 mg/dL (2.4-5.1); Potassium 2.9 mMol/L (3.4-5.1); Sodium 142 mMol/L (136-145); Total Protein 6.2 gm/dL (5.7-8.2); eGFR > 60 See Note
--- NOTE | 2024-12-22 08:26 | CHAP ---
Responded to Rapid Response (08:26). No family present. All was under control.
--- NOTE | 2024-12-22 08:27 | XR_ITS ---
Examination: AP chest single view Technique one AP portable upright chest single view Date and time: December 22, 2024 0839 hours INDICATIONS: Chest pain today FINDINGS: The film is rotated RPO No significant cardiac enlargement Mild vascular congestion. No lobar pneumonia. The film does not include the left lateral costophrenic angle IMPRESSION: Limited study Mild vascular congestion
--- NOTE | 2024-12-22 08:27 | EKG_ITS ---
[facility] Test Date: 2024-12-22 Pat Name: SERGO BAZZI Department: Room: 80A Gender: Female Professor Of Engineering: MARYCRUZ : 1955 Requested By: Laura Shepard Order Number: [id number] Reading MD: Laura Sheprad Measurements Intervals Sneads Rate: 96 P: 8 MT: 191 QRS: 22 QRSD: 74 T: 5 QT: 352 QTc: 446 Interpretive Statements SINUS RHYTHM LOW QRS VOLTAGE IN PRECORDIAL LEADS Compared to ECG 12/20/2024 14:57:04 Low QRS voltage now present Sinus tachycardia no longer present Myocardial infarct finding no longer present /store/S0/[id number].pdf
[2024-12-22] MEDS: cefTRIAXone/D5w 1gm IV premix 1 GM/50 ML BAG IV (08:32)
--- NOTE | 2024-12-22 08:38 | PD.RESEVENT ---
Documentation for date of: 12/22/24 Event Note Event Note: Rapid called at 0825 for acute chest pain. Airway was intact. Patient was tachycardic at 101 but otherwise vitals were within normal limits. Patient was saturating 98% on room air. When asked to locate pain, patient pointed at epigastric region. Denies shortness of breath and pain down left arm. EKG stat showed sinus tachycardia. Stat troponin was negative. Stat CXR showed mild vascular congestion, but no lobar pneumonia or significant cardiac enlargement. Of note patient is s/p upper endoscopy 12/21/2024 and was given toradol overnight also for pain. Gave protonix 40 mg x2, zofran 4 mg, diuladid, and norco. Note patient has vomiting with morphine.
[2024-12-22] MEDS: POTASSIUM CHL 10 mEq IVPB 10 MEQ/100 ML BAG 100 MEQ IV ×4 (09:16→14:06)
[2024-12-22] MEDS: Magnesium Sulfate 2 GM Ivpb 2 GM/50 ML BAG IV (09:17)
[2024-12-22] MEDS: HYDROmorphone INJ 2 MG/ML VIAL 0.5 MG IVP (09:31)
[2024-12-22 09:44] LABS: Anion Gap 16 (7-16); BUN/Creatinine Ratio 12 Ratio (12-20); Blood Urea Nitrogen 6 mg/dL (9-23); Calcium 8.5 mg/dL (8.3-10.6); Carbon Dioxide 20.9 mMol/L (20.0-31.0); Chloride 104 mMol/L (98-107); Creatinine (Component) 0.5 mg/dL (0.6-1.3); Estimated Creatinine Clearance 77.9 mL/min (>60); Glucose 98 mg/dL (74-106); Osmolality,Calculated 278 (275-295); Potassium 3.0 mMol/L (3.4-5.1); Sodium 141 mMol/L (136-145); Troponin I < 0.002 ng/mL (0.0-0.045); eGFR > 60 See Note
--- NOTE | 2024-12-22 10:32 | ESPR_ITS ---
<Statement entered by Annabella Mayer MD - 01/01/25 14:15> I reviewed above note and agree with findings and plans. I have also personally examined the patient with medicine team and went over assessment and plan with medical team including manager internship and resident physician. Documentation for date of: 12/22/24 Subjective Subjective Interval history: Was given Toradol x 1 overnight due to pain. This morning complains of increased gassiness and burping, likely secondary to endoscopy. Continues to endorse epigastric pain and nausea. Rapid response was called at 0826 today for chest pain. See event note. ACS ruled out. Labs and vitals reviewed. WBC is within normal limits, hemoglobin stable at 13. Potassium was 2.9 and magnesium was 1.3, both repleted. Anion gap increased to 16 today. Will continue metronidazole and ceftriaxone empirically. Blood cultures 12/20/2024 are negative. EGD 12/21/2024 shows esophagitis and gastritis. This morning, patient was unable to tolerate colonoscopy prep, will consult Dr. Jiang if can defer to outpatient. Dr. Jiang prefers to do colonoscopy inpatient today, placed NG tube and will be giving GoLytely. Patient continues to complain of nausea despite Zofran, will discontinue and start promethazine. Review of systems otherwise negative except what is mentioned above. Exam Vital Signs Temp Pulse Resp BP Pulse Ox O2 Del Method O2 Flow Rate 97.4 F 101 H 17 111/57 L 97 Room Air 3 12/22/24 08:00 12/22/24 08:00 12/22/24 08:00 12/22/24 08:00 12/22/24 08:00 12/22/24 08:00 12/21/24 20:36 Narrative Exam Physical Exam General: Awake and mild distress from pain and nausea. Conversational. Laying in bed, in position. Sleeping upon arrival. HEENT: Normocephalic, atraumatic, mucous membranes moist. Heart: Regular rate and rhythm, normal S1 and S2, no murmurs. Lungs: Clear to auscultation with no wheezing or crackles. Abdomen: Soft, slightly distended, positive bowel sounds. LLQ tenderness on palpation. No guarding or rebound tenderness. Neurologic: Alert and oriented x3, no gross neurological deficit, and patient able to move all 4 extremities. Extremities: No edema. Skin: No rash or ecchymoses. Objective Labs 12/22/24 05:48 12/22/24 08:51 Labs: Laboratory Results - last 24 hr 12/22/24 12/22/24 05:48 08:51 WBC 7.3 RBC 4.15 Hgb 13.0 Hct 36.6 MCV 88 MCH 31.3 MCHC 35.5 RDW Std Deviation 43.3 Plt Count 239 Neut % (Auto) 44 Lymph % (Auto) 45 [place] % (Auto) 8 Eos % (Auto) 2 Baso % (Auto) 0 Neut # (Auto) 3.2 Lymph # (Auto) 3.3 [place] # (Auto) 0.6 Eos # (Auto) 0.1 Baso # (Auto) 0.0 Immature Gran # (Auto) 0.02 H Absolute Nucleated RBC 0.00 Immature Gran % 0 Nucleated RBC % 0 Sodium 142 141 Potassium 2.9 L 3.0 L Chloride 105 104 Carbon Dioxide 20.7 20.9 Anion Gap 16 16 BUN 6 L 6 L Creatinine 0.4 L 0.5 L Estim Creat Clear Calc 97.3 77.9 eGFR > 60 > 60 BUN/Creatinine Ratio 15 12 Glucose 81 98 Calculated Osmolality 279 278 Calcium 8.5 8.5 Corrected Calcium 8.8 Phosphorus 2.5 Magnesium 1.3 L Total Bilirubin 0.6 AST 18 ALT 10 Alkaline Phosphatase 79 Troponin I < 0.002 Total Protein 6.2 Albumin 3.6 Globulin 2.6 Albumin/Globulin Ratio 1.4 ABG Interpretation ABG results: 12/20/24 12/20/24 14:46 23:26 VBG pH 7.52 7.42 VBG pCO2 29 L 32 L VBG pO2 35 95 H D VBG Base Excess 2 -2 Quality Measures Quality Measures none Advance care planning discussed with:: patient Assessment & Plan Assessment Current Active Medications: Generic Name Dose Route Start Last Admin Trade Name Freq PRN Reason Stop Dose Admin Acetaminophen 650 mg 12/20/24 20:46 12/21/24 21:49 Acetaminophen 325 Mg Tablet PO 01/19/25 20:45 650 mg Q6H PRN Administration PAIN SCALE 1-3 (mild Hydrocodone Bitart/Acetaminophen 1 tab 12/22/24 08:30 Hydrocodone/Apap 5/325 Tablet PO 12/27/24 08:29 Q6HR PRN PAIN SCALE 4-6 (Moderate Buspirone HCl 15 mg 12/21/24 09:00 12/22/24 08:31 Buspirone Hcl 5 Mg Tablet PO 01/20/25 08:59 15 mg BID ISRA Administration Dextrose 25 ml 12/20/24 20:51 Dextrose 50%-Water Inj 50 Ml Syringe IV 01/19/25 20:50 Q15MIN PRN BG 50-70 responsive npo pt Dextrose 50 ml 12/20/24 20:51 Dextrose 50%-Water Inj 50 Ml Syringe IV 01/19/25 20:50 Q15MIN PRN BG <50 OR BG <70 & pt unresponsive Glucagon 1 mg 12/20/24 20:51 Glucagon Inj 1 Mg Vial IM Q15MIN PRN BG <70, and no IV access Metronidazole 500 mg in 100 mls @ 200 mls/hr 12/21/24 16:07 12/22/24 05:15 Flagyl 500 Mg Iv IV 12/28/24 16:06 200 mls/hr Q8HR ISRA Administration Ceftriaxone Sodium/Dextrose 1 gm in 50 mls @ 100 mls/hr 12/21/24 16:08 12/22/24 08:32 Rocephin/D5w 1gm Iv Premix IV 12/28/24 16:07 100 mls/hr QDAY ISRA Administration Potassium Chloride 10 meq in 100 mls @ 100 mls/hr 12/22/24 08:43 12/22/24 09:16 Kcl Ivpb IV 12/22/24 12:42 100 mls/hr Q1H ISRA Administration Magnesium Sulfate 2 gm in 50 mls @ 25 mls/hr 12/22/24 08:44 12/22/24 09:17 Magnesium Sulfate Ivpb IV 12/22/24 10:43 25 mls/hr X1 ONE Administration Insulin Human Lispro 0 unit 12/20/24 21:00 12/22/24 08:17 Insulin Lispro (Admelog) 1 Unit/0.01 Ml Unit SC 01/19/25 20:59 Not Given ACHS ISRA Protocol Levothyroxine Sodium 25 mcg 12/21/24 06:00 12/22/24 05:15 Levothyroxine Sodium 25 Mcg Tablet PO 01/20/25 05:59 25 mcg ACBR ISRA Administration Ondansetron HCl 4 mg 12/21/24 12:48 12/22/24 08:30 Ondansetron Inj 2 Mg/Ml Inj 2 Ml IVP 01/20/25 12:47 4 mg Q6HR PRN Administration NAUSEA OR VOMITING Protocol Pantoprazole Sodium 40 mg 12/21/24 09:00 12/22/24 08:26 Pantoprazole Inj 40 Mg Vial IVP 01/20/25 08:59 40 mg BID ISRA Administration Simethicone 80 mg 12/21/24 12:47 12/21/24 12:59 Simethicone 80 Mg Chew PO 01/20/25 12:46 80 mg QID PRN Administration GAS Plan Patient is a 69-year-old female with past medical history of hypertension, [id number] type 2 diabetes, CVA, and hypothyroidism presenting to the ED on 12/20 with episode of weakness, intractable abdominal pain and nausea, will be admitted with upper GI bleed and concern for starvation ketosis versus euglycemic DKA. Status post endoscopy 12/21, pending colonoscopy today. #Nonspecific colitis # Esophagitis #Gastritis Presented with abdominal pain and nausea/vomiting. Has had dark tarry stools but hemoglobin is currently stable. On admission, patient was afebrile but white blood cell count was within normal limits. EKG, chest x-ray, CT head were unremarkable. CT chest abdomen pelvis showed moderate calcification of the LAD, mild vascular congestion, moderate diffuse nonspecific colitis. Patient was started on meropenem and vancomycin however was discontinued. Will plan to start antibiotics as patient was tender on physical exam and white blood cell count increased. EGD (12/21/2024): Esophagitis and gastritis, duodenum normal. Biopsies performed, await pathology results. 12/22: Patient continues to have nausea today, unable to tolerate GoLytely prep. Dr. Jiang placed NG tube, will help with GoLytely prep. Plan for colonoscopy after bowel movement. Note, patient has not had a bowel movement since admission. Blood culture 12/20/2024 are negative. Plan: - GI consulted, appreciate recommendations -S/p upper endoscopy and NG tube -Pending colonoscopy - N.p.o. - Pending stool studies including stool WBC, calprotectin, stool culture, Giardia and C. difficile - Continue IV metronidazole and ceftriaxone empirically (12/21? ?Discontinue Zofran, start promethazine 12.5 mg IV for nausea #Starvation ketosis vs. Euglycemic DKA? #Electrolyte abnormalities #Uvg-stgntke-vwjnipdng type 2 diabetes On admission, patient had low potassium and magnesium, ketones and glucose noted in urine with an anion gap of 18. Does take Jardiance for type 2 diabetes, has been compliant per patient. B-hydorxybutyrate elevated at 3.8. Last A1c on file 8.1 on 01/2024. Anion gap improved. 12/22: Anion gap increased to 16. Will give some fluid. Glucose is 98. Patient had 3 bowel movements today, likely because of GoLytely. Plan: ?Replete electrolytes as needed ?LR 500 mL at 75 mL/h ?Glucose checks Q4h ?Dietary consulted, appreciate recommendations ?Sliding scale insulin #Hypothyroidism Patient on home levothyroxine Plan: ? Continue home dose levothyroxine #Hypertension #History of CVA Patient on home Plavix 75 mg p.o. daily. Patient has been relatively normotensive. Plan: ? Pending official med rec ? Continue to hold antiplatelets as there is some concern for GI bleed as noted above ?Restart home antihypertensives when appropriate #Subacute mild compression fracture of the L3-L4 region Per CT. Patient had a recent admission for fall require orthopedic consult for this compression fracture. Patient has had trouble walking since, requires assistance from daughter at home bed to bathroom. Per physical exam during admission, rectal tone intact. Plan: ?Monitor for any acute changes ?PT consulted, appreciate recommendations ?Recommended SNF per PT however patient wants to be discharged home ? Monitor pain, escalate medications if necessary #Depression/anxiety Patient on BuSpar 50 mg p.o. twice daily Patient also takes zolpidem 5 mg for sleep Plan: ? Continue home dose BuSpar ?Will hold zolpidem as it can contribute to nausea ?Consider additional sleep aid if necessary Health Maintenance: Lines: PIV Diet: Clear liquid for now Bowel: Simethicone GI prophylaxis: IV Protonix 40 twice daily DVT prophylaxis: SCD Dispo: Pending colonoscopy Code: Full Patient plan of care was discussed with the senior resident, Dr. Lee, and attending physician, Dr. Mayer. Laura Shepard, PGY-1
--- NOTE | 2024-12-22 11:14 | PC.SS ---
Follow up note: Rapid response was called. Pt having chest pain. Pt will return home upon dc.
--- NOTE | 2024-12-22 12:59 | PC.NURSE ---
called Dr. Jiang regarding pt. not drinking her GoLytely. orders received for NGT and GoLytely @400ml/hr.
--- NOTE | 2024-12-22 13:27 | XR_ITS ---
Examination: AP chest single view Technique : AP portable sitting chest single view Date and time: December 22, 2024 1347 hours Comparison December 22, 2024 0839 hours INDICATIONS: Post orogastric tube placement FINDINGS: Orogastric tube tip body of the stomach satisfactory position. Normal heart size. No aspiration pneumonia IMPRESSION: Orogastric tube in stomach satisfactory position
--- NOTE | 2024-12-22 13:51 | PC.SS ---
Late note 12-21-24: SS met with patient regarding her d/c plan. Pt is alert/oriented. Pt was admitted for Intractable Abdominal Pain +Vomiting. Pt confirmed demographic and contact information is correct on facesheet. Pt resides with granddaughter. Pt transfers into wheelchair. Pt is ok with all ADLs. Patient?s pharmacy of choice is [facility] on [address]. Pt named her granddaughter, Jluia Rodriguez medical decision maker if she is unable. SS provided verbal d/c options for home or SNF. Patient?s choice is to return home upon d/c. Pt does not have an advance directive, SS offered, and pt declined. Pt states she is diabetic, has glucometer, and test strips. Pt followed up with PCP this month. D/C plan: Return home Next of Kin: Julia Rodriguez, granddaughter, phone# [phone] PCP: Dr. Valerie Cr Address: Correct on facesheet
[2024-12-22] MEDS: PROMETHAZINE INJ 12.5 MG in SODIUM CHLORIDE 0.9% 50 ML 2.5 MG IV ×2 (14:37→20:35)
--- NOTE | 2024-12-22 18:31 | ESPR_ITS ---
Documentation for date of: 12/22/24 Subjective Subjective Interval history: Upper endoscopy yesterday shows esophagitis and gastritis Patient has abnormal CT scan of the abdomen pelvis showing nonspecific colitis GoLytely prep in progress Exam Vital Signs Temp Pulse Resp BP Pulse Ox O2 Del Method O2 Flow Rate 97.0 F 90 19 126/68 96 Room Air 3 12/22/24 16:00 12/22/24 16:00 12/22/24 16:00 12/22/24 16:00 12/22/24 16:00 12/22/24 16:00 12/21/24 20:36 Objective Labs 12/22/24 05:48 12/22/24 08:51 Labs: Laboratory Results - last 24 hr 12/22/24 12/22/24 05:48 08:51 WBC 7.3 RBC 4.15 Hgb 13.0 Hct 36.6 MCV 88 MCH 31.3 MCHC 35.5 RDW Std Deviation 43.3 Plt Count 239 Neut % (Auto) 44 Lymph % (Auto) 45 [place] % (Auto) 8 Eos % (Auto) 2 Baso % (Auto) 0 Neut # (Auto) 3.2 Lymph # (Auto) 3.3 [place] # (Auto) 0.6 Eos # (Auto) 0.1 Baso # (Auto) 0.0 Immature Gran # (Auto) 0.02 H Absolute Nucleated RBC 0.00 Immature Gran % 0 Nucleated RBC % 0 Sodium 142 141 Potassium 2.9 L 3.0 L Chloride 105 104 Carbon Dioxide 20.7 20.9 Anion Gap 16 16 BUN 6 L 6 L Creatinine 0.4 L 0.5 L Estim Creat Clear Calc 97.3 77.9 eGFR > 60 > 60 BUN/Creatinine Ratio 15 12 Glucose 81 98 Calculated Osmolality 279 278 Calcium 8.5 8.5 Corrected Calcium 8.8 Phosphorus 2.5 Magnesium 1.3 L Total Bilirubin 0.6 AST 18 ALT 10 Alkaline Phosphatase 79 Troponin I < 0.002 Total Protein 6.2 Albumin 3.6 Globulin 2.6 Albumin/Globulin Ratio 1.4 Impressions Impression: Gastritis Esophagitis Abnormal CT scan of the abdomen pelvis showing nonspecific colitis GoLytely prep in progress for colonoscopy ABG Interpretation ABG results: 12/20/24 12/20/24 14:46 23:26 VBG pH 7.52 7.42 VBG pCO2 29 L 32 L VBG pO2 35 95 H D VBG Base Excess 2 -2 Assessment & Plan A&P Narrative # Multiple GI symptoms of nausea vomiting pain abdomen abnormal CT scan of the abdomen pelvis which has been persistent for quite some time Suggestions Initial test of choice is fiberoptic esophagogastroduodenoscopy with possible biopsy possible therapeutic intervention under intravenous moderate sedation scheduled for tomorrow N.p.o. tomorrow at 10 AM that patient can have clear liquid diet Patient will also undergo fiberoptic colonoscopy after GoLytely prep to rule out any evidence of underlying inflammatory bowel disease or microscopic colitis or ischemic colitis Will follow the patient Other medical problems include Essential hypertension Diabetes mellitus type 2 CVA Hypothyroidism Post hysterectomy Time Spent With Patient Time: Total time spent is greater than 50% in coordination of care (as documented) at patient's floor/unit and/or counseling patient:
[2024-12-22] MEDS: HYDROcodone/APAP 5/325 TABLET 1 TAB PO (21:42)
[2024-12-22] MEDS: NA SU/NAHCO3/KC/PEG (Golytely) 4,000 ML BTL 4000 ML NG (22:14)
[2024-12-23] VITALS (14 sets, daily range): BP systolic 113–171; BP diastolic 63–108; PULSE 62–100; RESP 15–23; TEMP 36.1–37.1; O2SAT 92–99; BMI 22.8
[2024-12-23] MEDS: metroNIDAZOLE/NS 500 MG IVPB 500 MG/100 ML BAG 200 MG IV ×3 (05:14→21:12)
[2024-12-23] MEDS: LEVOTHYROXINE SODIUM 25 MCG TABLET PO (05:14)
[2024-12-23 06:34] LABS: Basophils # (Auto) 0.0 Thou/mm3 (0.0-0.2); Basophils % (Auto) 1 % (0-2.5); Eosinophils # (Auto) 0.2 Thou/mm3 (0.0-0.5); Eosinophils % (Auto) 3 % (0-10); Hematocrit 35.7 % (36.0-46.0); Hemoglobin 12.5 g/dL (12.0-16.0); Immature Granulocytes Auto 0.01 Thou/mm3 (0.00-0.00); Lymphocytes # (Auto) 2.4 Thou/mm3 (1.0-4.8); Lymphocytes % (Auto) 38 % (10-50); Mean Corpuscular HGB Conc 35.0 g/dl (31.0-37.0); Mean Corpuscular Hemoglobin 31.3 pg (25.0-35.0); Mean Corpuscular Volume 89 fL (80-100); Monocytes # (Auto) 0.6 Thou/mm3 (0.0-0.8); Monocytes % (Auto) 10 % (0-12); Neutrophils # (Auto) 3.1 Thou/mm3 (1.8-7.7); Neutrophils % (Auto) 49 % (37-80); Nucleated Red Blood Cell # 0.00 Thou/mm3 (0.00-0.00); Nucleated Red Blood Cell % 0 /100 WBC (0); Platelet Count 220 Thou/mm3 (140-440); RDW Standard Deviation 44.7 fL (36.4-46.3); Red Blood Count 4.00 Miln/mm3 (4.00-5.20); White Blood Count 6.2 Thou/mm3 (3.6-11.0)
[2024-12-23 06:59] LABS: Alanine Aminotransferase 18 U/L (10-49); Albumin, Serum 3.5 gm/dL (3.4-4.8); Albumin/Globulin Ratio 1.3 (1.2-2.2); Alkaline Phosphatase 82 U/L (46-116); Anion Gap 16 (7-16); Aspartate Amino Transferase 30 U/L (0-34); BUN/Creatinine Ratio 15 Ratio (12-20); Bilirubin,Total 0.5 mg/dL (0.3-1.2); Blood Urea Nitrogen 6 mg/dL (9-23); Calcium 8.4 mg/dL (8.3-10.6); Calcium (Corrected) 8.8 mg/dL (8.5-10.1); Carbon Dioxide 21.3 mMol/L (20.0-31.0); Chloride 107 mMol/L (98-107); Creatinine (Component) 0.4 mg/dL (0.6-1.3); Estimated Creatinine Clearance 97.3 mL/min (>60); Globulin 2.6 gm/dL (2.3-3.5); Glucose 74 mg/dL (74-106); Magnesium 1.5 mg/dL (1.6-2.6); Osmolality,Calculated 283 (275-295); Phosphorous 2.1 mg/dL (2.4-5.1); Potassium 3.2 mMol/L (3.4-5.1); Sodium 144 mMol/L (136-145); Total Protein 6.1 gm/dL (5.7-8.2); eGFR > 60 See Note
[2024-12-23] MEDS: cefTRIAXone/D5w 1gm IV premix 1 GM/50 ML BAG IV (08:35)
[2024-12-23] MEDS: POTASSIUM CHL 10 mEq IVPB 10 MEQ/100 ML BAG 100 MEQ IV ×4 (09:20→12:23)
[2024-12-23] MEDS: Magnesium Sulfate 2 GM Ivpb 2 GM/50 ML BAG IV (09:21)
[2024-12-23] MEDS: PROMETHAZINE INJ 12.5 MG in SODIUM CHLORIDE 0.9% 50 ML 2.5 MG IV (11:19)
--- NOTE | 2024-12-23 13:23 | ESPR_ITS ---
<Statement entered by Annabella Mayer MD - 01/01/25 14:16> I reviewed above note and agree with findings and plans. I have also personally examined the patient with medicine team and went over assessment and plan with medical team including international editorial producer and resident physician. Documentation for date of: 12/23/24 Subjective Subjective Interval history: No acute events overnight. Patient seen and examined at bedside this AM. NG tube removed, completed GoLytely and pending colonoscopy today. Continues to endorse nausea, likely secondary to bowel prep, and overall weakness. On promethazine for nausea. Labs and vitals were reviewed. Low potassium, magnesium, and phosphorus, repleted appropriately. Pending stool cultures. Continue antibiotics empirically. Review of systems otherwise negative except what is mentioned above. Exam Vital Signs Temp Pulse Resp BP Pulse Ox O2 Del Method O2 Flow Rate 97.1 F 77 16 122/65 95 Room Air 3 12/23/24 12:00 12/23/24 12:00 12/23/24 12:00 12/23/24 12:00 12/23/24 12:00 12/23/24 12:12/21/24 20:36 Narrative Exam Physical Exam General: Awake and mild distress from pain and nausea. Conversational. Laying in bed, in position. Sleeping upon arrival. HEENT: Normocephalic, atraumatic, mucous membranes moist. Heart: Regular rate and rhythm, normal S1 and S2, no murmurs. Lungs: Clear to auscultation with no wheezing or crackles. Abdomen: Soft, slightly distended, positive bowel sounds. LLQ and RLQ tenderness on palpation. No guarding or rebound tenderness. Neurologic: Alert and oriented x3, no gross neurological deficit, and patient able to move all 4 extremities. Extremities: No edema. Skin: No rash or ecchymoses. Objective Labs 12/23/24 05:56 12/23/24 05:56 Labs: Laboratory Results - last 24 hr 12/23/24 05:56 WBC 6.2 RBC 4.00 Hgb 12.5 Hct 35.7 L MCV 89 MCH 31.3 MCHC 35.0 RDW Std Deviation 44.7 Plt Count 220 Neut % (Auto) 49 Lymph % (Auto) 38 [place] % (Auto) 10 Eos % (Auto) 3 Baso % (Auto) 1 Neut # (Auto) 3.1 Lymph # (Auto) 2.4 [place] # (Auto) 0.6 Eos # (Auto) 0.2 Baso # (Auto) 0.0 Immature Gran # (Auto) 0.01 H Absolute Nucleated RBC 0.00 Immature Gran % 0 Nucleated RBC % 0 Sodium 144 Potassium 3.2 L Chloride 107 Carbon Dioxide 21.3 Anion Gap 16 BUN 6 L Creatinine 0.4 L Estim Creat Clear Calc 97.3 eGFR > 60 BUN/Creatinine Ratio 15 Glucose 74 Calculated Osmolality 283 Calcium 8.4 Corrected Calcium 8.8 Phosphorus 2.1 L Magnesium 1.5 L Total Bilirubin 0.5 AST 30 ALT 18 Alkaline Phosphatase 82 Total Protein 6.1 Albumin 3.5 Globulin 2.6 Albumin/Globulin Ratio 1.3 ABG Interpretation ABG results: 12/20/24 12/20/24 14:46 23:26 VBG pH 7.52 7.42 VBG pCO2 29 L 32 L VBG pO2 35 95 H D VBG Base Excess 2 -2 Quality Measures Quality Measures none Advance care planning discussed with:: patient Assessment & Plan Assessment Current Active Medications: Generic Name Dose Route Start Last Admin Trade Name Freq PRN Reason Stop Dose Admin Acetaminophen 650 mg 12/20/24 20:46 12/21/24 21:49 Acetaminophen 325 Mg Tablet PO 01/19/25 20:45 650 mg Q6H PRN Administration PAIN SCALE 1-3 (mild Hydrocodone Bitart/Acetaminophen 1 tab 12/22/24 08:30 12/22/24 21:42 Hydrocodone/Apap 5/325 Tablet PO 12/27/24 08:29 1 tab Q6HR PRN Administration PAIN SCALE 4-6 (Moderate Buspirone HCl 15 mg 12/21/24 09:00 12/23/24 08:35 Buspirone Hcl 5 Mg Tablet PO 01/20/25 08:59 15 mg BID ISRA Administration Dextrose 25 ml 12/20/24 20:51 Dextrose 50%-Water Inj 50 Ml Syringe IV 01/19/25 20:50 Q15MIN PRN BG 50-70 responsive npo pt Dextrose 50 ml 12/20/24 20:51 Dextrose 50%-Water Inj 50 Ml Syringe IV 01/19/25 20:50 Q15MIN PRN BG <50 OR BG <70 & pt unresponsive Glucagon 1 mg 12/20/24 20:51 Glucagon Inj 1 Mg Vial IM Q15MIN PRN BG <70, and no IV access Metronidazole 500 mg in 100 mls @ 200 mls/hr 12/21/24 16:07 12/23/24 13:13 Flagyl 500 Mg Iv IV 12/28/24 16:06 200 mls/hr Q8HR ISRA Administration Ceftriaxone Sodium/Dextrose 1 gm in 50 mls @ 100 mls/hr 12/21/24 16:08 12/23/24 08:35 Rocephin/D5w 1gm Iv Premix IV 12/28/24 16:07 100 mls/hr QDAY ISRA Administration Promethazine HCl 12.5 mg/ 50.5 mls @ 2.5 mls/min 12/22/24 14:07 12/23/24 11:19 Sodium Chloride IV 01/21/25 14:06 2.5 mls/min Q6HR PRN Administration NAUSEA OR VOMITING Protocol Insulin Human Lispro 0 unit 12/20/24 21:00 12/23/24 08:01 Insulin Lispro (Admelog) 1 Unit/0.01 Ml Unit SC 01/19/25 20:59 Not Given ACHS ISRA Protocol Levothyroxine Sodium 25 mcg 12/21/24 06:00 12/23/24 05:14 Levothyroxine Sodium 25 Mcg Tablet PO 01/20/25 05:59 25 mcg ACBR ISRA Administration Ondansetron HCl 4 mg 12/21/24 12:48 12/22/24 08:30 Ondansetron Inj 2 Mg/Ml Inj 2 Ml IVP 01/20/25 12:47 4 mg Q6HR PRN Administration NAUSEA OR VOMITING Protocol Pantoprazole Sodium 40 mg 12/21/24 09:00 12/23/24 08:35 Pantoprazole Inj 40 Mg Vial IVP 01/20/25 08:59 40 mg BID ISRA Administration Simethicone 80 mg 12/21/24 12:47 12/21/24 12:59 Simethicone 80 Mg Chew PO 01/20/25 12:46 80 mg QID PRN Administration GAS Plan Patient is a 69-year-old female with past medical history of hypertension, gne-tubjkqa-ooeqwcopp type 2 diabetes, CVA, and hypothyroidism presenting to the ED on 12/20 with episode of weakness, intractable abdominal pain and nausea, will be admitted with upper GI bleed and concern for starvation ketosis versus euglycemic DKA. Status post endoscopy 12/21, pending colonoscopy today. #Nonspecific colitis #Esophagitis #Gastritis Presented with abdominal pain and nausea/vomiting. Has had dark tarry stools but hemoglobin is currently stable. On admission, patient was afebrile but white blood cell count was within normal limits. EKG, chest x-ray, CT head were unremarkable. CT chest abdomen pelvis showed moderate calcification of the LAD, mild vascular congestion, moderate diffuse nonspecific colitis. Patient was started on meropenem and vancomycin however was discontinued. Will plan to start antibiotics as patient was tender on physical exam and white blood cell count increased. EGD (12/21/2024): Esophagitis and gastritis, duodenum normal. Biopsies performed, await pathology results. Pending colonoscopy. Plan: - GI consulted, appreciate recommendations -S/p upper endoscopy and NG tube, removed -Pending colonoscopy - clear liquid diet, N.p.o. now - Pending stool studies including stool WBC, calprotectin, stool culture, Giardia and C. difficile - Continue IV metronidazole and ceftriaxone empirically (12/21? ?Continue promethazine 12.5 mg IV for nausea #Starvation ketosis vs. Euglycemic DKA? #Electrolyte abnormalities #Pxc-fwskxbd-ogcneubek type 2 diabetes On admission, patient had low potassium and magnesium, ketones and glucose noted in urine with an anion gap of 18. Does take Jardiance for type 2 diabetes, has been compliant per patient. B-hydorxybutyrate elevated at 3.8. Last A1c on file 8.1 on 01/2024. Anion gap improved. Plan: ?Replete electrolytes as needed ?Glucose checks Q4h ?Dietary consulted, appreciate recommendations - keep on clear liquid diet for now, add glucerna 8oz BID when diet advances to solids; if unable to advance solids in next 3-4 days, consider PN if within POC ?Sliding scale insulin #Hypothyroidism Patient on home levothyroxine Plan: ? Continue home dose levothyroxine #Hypertension #History of CVA Patient on home Plavix 75 mg p.o. daily. Patient has been relatively normotensive. Plan: ? Continue to hold antiplatelets as there is some concern for GI bleed as noted above ?Restart home antihypertensives when appropriate #Subacute mild compression fracture of the L3-L4 region Per CT. Patient had a recent admission for fall require orthopedic consult for this compression fracture. Patient has had trouble walking since, requires assistance from daughter at home bed to bathroom. Per physical exam during admission, rectal tone intact. Plan: ?Monitor for any acute changes ?PT consulted, appreciate recommendations ?Recommended SNF per PT however patient wants to be discharged home ? Monitor pain, escalate medications if necessary #Depression/anxiety Patient on BuSpar 50 mg p.o. twice daily Patient also takes zolpidem 5 mg for sleep Plan: ? Continue home dose BuSpar ?Continue to hold zolpidem as it can contribute to nausea ?Consider additional sleep aid if necessary Health Maintenance: Lines: PIV Diet: Clear liquid for now Bowel: Simethicone GI prophylaxis: IV Protonix 40 twice daily DVT prophylaxis: SCD Dispo: Pending colonoscopy Code: Full Patient plan of care was discussed with the attending physician, Dr. Mayer. Laura Shepard, PGY-1
--- NOTE | 2024-12-23 14:11 | PC.PT ---
Unable to initiate PT evaluation today, patient is pending colonoscopy and is taking Golytely.
--- NOTE | 2024-12-23 16:36 | SUR.PHASEI ---
Pt. arrived to recovery via gurney, eyes closed, responding to verbal commands, VSS, lung sounds clear, equal expansion evan., no c/o pain or nausea at this time, flatulence presence, blood glucose assessed on arrival result 78, will provide juice once pt. is more awake. Report received from Marge MARKS.
--- NOTE | 2024-12-23 16:54 | SUR.PHASEI ---
Called and gave report on pt. s/p colonoscopy to Sonya MARKS on M/S unit. Pt. is resting, VSS, no c/o pain or nausea at this time.
[2024-12-23] MEDS: NAPH,KPH MBDB 1 PACKET (1.5 GM) PO (17:26)
[2024-12-23] MEDS: ACETAMINOPHEN 325 MG TABLET 650 MG PO (21:18)
[2024-12-24] VITALS (9 sets, daily range): BP systolic 105–147; BP diastolic 65–83; PULSE 80–109; RESP 14–18; TEMP 36.1–36.7; O2SAT 94–97; BMI 22.8
[2024-12-24] MEDS: LEVOTHYROXINE SODIUM 25 MCG TABLET PO (05:31)
[2024-12-24] MEDS: metroNIDAZOLE/NS 500 MG IVPB 500 MG/100 ML BAG 200 MG IV ×3 (05:31→21:40)
[2024-12-24 06:27] LABS: Basophils # (Auto) 0.0 Thou/mm3 (0.0-0.2); Basophils % (Auto) 0 % (0-2.5); Eosinophils # (Auto) 0.2 Thou/mm3 (0.0-0.5); Eosinophils % (Auto) 3 % (0-10); Hematocrit 38.8 % (36.0-46.0); Hemoglobin 13.4 g/dL (12.0-16.0); Immature Granulocytes Auto 0.02 Thou/mm3 (0.00-0.00); Lymphocytes # (Auto) 3.2 Thou/mm3 (1.0-4.8); Lymphocytes % (Auto) 47 % (10-50); Mean Corpuscular HGB Conc 34.5 g/dl (31.0-37.0); Mean Corpuscular Hemoglobin 30.9 pg (25.0-35.0); Mean Corpuscular Volume 90 fL (80-100); Monocytes # (Auto) 0.5 Thou/mm3 (0.0-0.8); Monocytes % (Auto) 8 % (0-12); Neutrophils # (Auto) 2.9 Thou/mm3 (1.8-7.7); Neutrophils % (Auto) 42 % (37-80); Nucleated Red Blood Cell # 0.00 Thou/mm3 (0.00-0.00); Nucleated Red Blood Cell % 0 /100 WBC (0); Platelet Count 241 Thou/mm3 (140-440); RDW Standard Deviation 44.6 fL (36.4-46.3); Red Blood Count 4.33 Miln/mm3 (4.00-5.20); White Blood Count 6.9 Thou/mm3 (3.6-11.0)
[2024-12-24 06:50] LABS: Alanine Aminotransferase 14 U/L (10-49); Albumin, Serum 3.6 gm/dL (3.4-4.8); Albumin/Globulin Ratio 1.3 (1.2-2.2); Alkaline Phosphatase 88 U/L (46-116); Anion Gap 14 (7-16); Aspartate Amino Transferase 20 U/L (0-34); BUN/Creatinine Ratio 12 Ratio (12-20); Bilirubin,Total 0.5 mg/dL (0.3-1.2); Blood Urea Nitrogen 6 mg/dL (9-23); Calcium 8.7 mg/dL (8.3-10.6); Calcium (Corrected) 9.0 mg/dL (8.5-10.1); Carbon Dioxide 22.7 mMol/L (20.0-31.0); Chloride 106 mMol/L (98-107); Creatinine (Component) 0.5 mg/dL (0.6-1.3); Estimated Creatinine Clearance 77.9 mL/min (>60); Globulin 2.7 gm/dL (2.3-3.5); Glucose 84 mg/dL (74-106); Magnesium 1.6 mg/dL (1.6-2.6); Osmolality,Calculated 281 (275-295); Phosphorous 2.9 mg/dL (2.4-5.1); Potassium 3.3 mMol/L (3.4-5.1); Sodium 143 mMol/L (136-145); Total Protein 6.3 gm/dL (5.7-8.2); eGFR > 60 See Note
[2024-12-24] MEDS: cefTRIAXone/D5w 1gm IV premix 1 GM/50 ML BAG IV (08:25)
[2024-12-24] MEDS: Magnesium Sulfate 2 GM Ivpb 2 GM/50 ML BAG IV (10:49)
--- NOTE | 2024-12-24 12:19 | PC.NURSE ---
call to pharmacy for a dose of phenergan
[2024-12-24] MEDS: POTASSIUM CHL 10 mEq IVPB 10 MEQ/100 ML BAG 100 MEQ IV ×3 (13:02→17:21)
--- NOTE | 2024-12-24 14:04 | PD.RESPRO ---
Documentation for date of: 12/24/24 Subjective Subjective Interval history: The patient is evaluated at bedside, symptoms improved, still feeling nauseous but was able to eat breakfast, without throwing up. No vomiting over last 24 hours. Still complaining of mild abdominal discomfort. But reported improvement than before. Patient's daughter Yaquelin was present in the room, questions and concerns were answered, Yaquelin also reported that patient has had a chronic narcotic abuse problem for the past 30 years. Though she was in rehab for a while but as soon as she came back home started taking [place]'s for pain, and mostly stays drowsy during the day. Patient was complaining of symptoms of dizziness and vertigo for more than 1 month, per her daughter the symptoms are chronic and persistent, patient was scheduled for MRI last month, but she missed her appointment due to drowsiness. The patient is pending a placement in a [facility] for physical therapy and rehabilitation. Exam Vital Signs Temp Pulse Resp BP Pulse Ox O2 Del Method O2 Flow Rate 98.1 F 96 18 132/78 H 94 L Room Air 3 12/24/24 12:00 12/24/24 13:53 12/24/24 12:00 12/24/24 12:00 12/24/24 12:00 12/24/24 12:00 12/23/24 16:30 Narrative Exam Physical Exam General: Awake and mild distress from pain and nausea. Conversational. Laying in bed, in position. Sleeping upon arrival, but easily arousable. HEENT: Normocephalic, atraumatic, mucous membranes moist. Heart: Regular rate and rhythm, normal S1 and S2, no murmurs. Lungs: Clear to auscultation with no wheezing or crackles. Abdomen: Soft, slightly distended, positive bowel sounds. LLQ and RLQ tenderness on palpation. No guarding or rebound tenderness. Neurologic: Alert and oriented x3, no gross neurological deficit, and patient able to move all 4 extremities. Extremities: No edema. Skin: No rash or ecchymoses. Objective Labs 12/25/24 04:56 12/25/24 04:56 Labs: Laboratory Results - last 24 hr 12/24/24 05:45 WBC 6.9 RBC 4.33 Hgb 13.4 Hct 38.8 MCV 90 MCH 30.9 MCHC 34.5 RDW Std Deviation 44.6 Plt Count 241 Neut % (Auto) 42 Lymph % (Auto) 47 [place] % (Auto) 8 Eos % (Auto) 3 Baso % (Auto) 0 Neut # (Auto) 2.9 Lymph # (Auto) 3.2 [place] # (Auto) 0.5 Eos # (Auto) 0.2 Baso # (Auto) 0.0 Immature Gran # (Auto) 0.02 H Absolute Nucleated RBC 0.00 Immature Gran % 0 Nucleated RBC % 0 Sodium 143 Potassium 3.3 L Chloride 106 Carbon Dioxide 22.7 Anion Gap 14 BUN 6 L Creatinine 0.5 L Estim Creat Clear Calc 77.9 eGFR > 60 BUN/Creatinine Ratio 12 Glucose 84 Calculated Osmolality 281 Calcium 8.7 Corrected Calcium 9.0 Phosphorus 2.9 Magnesium 1.6 Total Bilirubin 0.5 AST 20 ALT 14 Alkaline Phosphatase 88 Total Protein 6.3 Albumin 3.6 Globulin 2.7 Albumin/Globulin Ratio 1.3 ABG Interpretation ABG results: 12/20/24 12/20/24 14:46 23:26 VBG pH 7.52 7.42 VBG pCO2 29 L 32 L VBG pO2 35 95 H D VBG Base Excess 2 -2 Quality Measures Quality Measures none Advance care planning discussed with:: patient Assessment & Plan Assessment Current Active Medications: Generic Name Dose Route Start Last Admin Trade Name Freq PRN Reason Stop Dose Admin Acetaminophen 650 mg 12/20/24 20:46 12/23/24 21:18 Acetaminophen 325 Mg Tablet PO 01/19/25 20:45 650 mg Q6H PRN Administration PAIN SCALE 1-3 (mild Hydrocodone Bitart/Acetaminophen 1 tab 12/22/24 08:30 12/22/24 21:42 Hydrocodone/Apap 5/325 Tablet PO 12/27/24 08:29 1 tab Q6HR PRN Administration PAIN SCALE 4-6 (Moderate Buspirone HCl 15 mg 12/21/24 09:00 12/24/24 08:26 Buspirone Hcl 5 Mg Tablet PO 01/20/25 08:59 15 mg BID ISRA Administration Dextrose 25 ml 12/20/24 20:51 Dextrose 50%-Water Inj 50 Ml Syringe IV 01/19/25 20:50 Q15MIN PRN BG 50-70 responsive npo pt Dextrose 50 ml 12/20/24 20:51 Dextrose 50%-Water Inj 50 Ml Syringe IV 01/19/25 20:50 Q15MIN PRN BG <50 OR BG <70 & pt unresponsive Glucagon 1 mg 12/20/24 20:51 Glucagon Inj 1 Mg Vial IM Q15MIN PRN BG <70, and no IV access Metronidazole 500 mg in 100 mls @ 200 mls/hr 12/21/24 16:07 12/24/24 05:31 Flagyl 500 Mg Iv IV 12/28/24 16:06 200 mls/hr Q8HR ISRA Administration Ceftriaxone Sodium/Dextrose 1 gm in 50 mls @ 100 mls/hr 12/21/24 16:08 12/24/24 08:25 Rocephin/D5w 1gm Iv Premix IV 12/28/24 16:07 100 mls/hr QDAY ISRA Administration Promethazine HCl 12.5 mg/ 50.5 mls @ 2.5 mls/min 12/22/24 14:07 12/23/24 11:40 Sodium Chloride IV 01/21/25 14:06 Infused Q6HR PRN Infusion NAUSEA OR VOMITING Protocol Insulin Human Lispro 0 unit 12/20/24 21:00 12/24/24 12:18 Insulin Lispro (Admelog) 1 Unit/0.01 Ml Unit SC 01/19/25 20:59 Not Given ACHS ISRA Protocol Levothyroxine Sodium 25 mcg 12/21/24 06:00 12/24/24 05:31 Levothyroxine Sodium 25 Mcg Tablet PO 01/20/25 05:59 25 mcg ACBR ISRA Administration Ondansetron HCl 4 mg 12/21/24 12:48 12/22/24 08:30 Ondansetron Inj 2 Mg/Ml Inj 2 Ml IVP 01/20/25 12:47 4 mg Q6HR PRN Administration NAUSEA OR VOMITING Protocol Pantoprazole Sodium 40 mg 12/21/24 09:00 12/24/24 08:26 Pantoprazole Inj 40 Mg Vial IVP 01/20/25 08:59 40 mg BID ISRA Administration Simethicone 80 mg 12/21/24 12:47 12/21/24 12:59 Simethicone 80 Mg Chew PO 01/20/25 12:46 80 mg QID PRN Administration GAS Plan Patient is a 69-year-old female with past medical history of hypertension, ozf-qlvhnpi-gpqmkhcph type 2 diabetes, CVA, and hypothyroidism presenting to the ED on 12/20 with episode of weakness, intractable abdominal pain and nausea, will be admitted with upper GI bleed and concern for starvation ketosis versus euglycemic DKA. Status post endoscopy 12/21, pending colonoscopy today. #Nonspecific colitis #Esophagitis #Gastritis Presented with abdominal pain and nausea/vomiting. Has had dark tarry stools but hemoglobin is currently stable. On admission, patient was afebrile but white blood cell count was within normal limits. EKG, chest x-ray, CT head were unremarkable. CT chest abdomen pelvis showed moderate calcification of the LAD, mild vascular congestion, moderate diffuse nonspecific colitis. Patient was started on meropenem and vancomycin however was discontinued. Will plan to start antibiotics as patient was tender on physical exam and white blood cell count increased. EGD (12/21/2024): Esophagitis and gastritis, duodenum normal. Biopsies performed, await pathology results. Colonoscpoy was done which showed no gross pathology, pending biopsy results, to be followed by PCP. Plan: - GI consulted, appreciate recommendations - clear liquid diet, advance as tolerated - Pending stool studies including stool WBC, calprotectin, stool culture, Giardia and C. difficile - Continue IV metronidazole and ceftriaxone empirically (12/21? ?Continue promethazine 12.5 mg IV for nausea #Starvation ketosis vs. Euglycemic DKA? #Electrolyte abnormalities #Oxi-jfuwqml-otvjcatuq type 2 diabetes On admission, patient had low potassium and magnesium, ketones and glucose noted in urine with an anion gap of 18. Does take Jardiance for type 2 diabetes, has been compliant per patient. B-hydorxybutyrate elevated at 3.8. Last A1c on file 8.1 on 01/2024. Anion gap improved. Plan: ?Replete electrolytes as needed ?Glucose checks Q4h ?Dietary consulted, appreciate recommendations - keep on clear liquid diet for now, add glucerna 8oz BID when diet advances to solids; if unable to advance solids in next 3-4 days, consider PN if within POC ?Sliding scale insulin #Hypothyroidism Patient on home levothyroxine Plan: ? Continue home dose levothyroxine #Hypertension #History of CVA Patient on home Plavix 75 mg p.o. daily. Patient has been relatively normotensive. Plan: ? Continue to hold antiplatelets as there is some concern for GI bleed as noted above ?Restart home antihypertensives when appropriate #Subacute mild compression fracture of the L3-L4 region Per CT. Patient had a recent admission for fall require orthopedic consult for this compression fracture. Patient has had trouble walking since, requires assistance from daughter at home bed to bathroom. Per physical exam during admission, rectal tone intact. Plan: ?Monitor for any acute changes ?PT consulted, appreciate recommendations ?Recommended SNF per PT however patient wants to be discharged home ? Monitor pain, escalate medications if necessary #Depression/anxiety Patient on BuSpar 50 mg p.o. twice daily Patient also takes zolpidem 5 mg for sleep Plan: ? Continue home dose BuSpar ?Continue to hold zolpidem as it can contribute to nausea ?Consider additional sleep aid if necessary #Opioid abuse disorder History of opioid abuse disorder, patient will benefit from rehab placement. Health Maintenance: Lines: PIV Diet: Advance as tolerated Bowel: Simethicone GI prophylaxis: IV Protonix 40 twice daily DVT prophylaxis: SCD Dispo: Pending colonoscopy Code: Full Patient plan of care was discussed with the attending physician, Dr. Otf Lee PGY 3 Attending Provider Attestation/Addendum I, Nolvia Vanessa, DO, attest that I was physically present for the [place] portions of the service and evaluated the patient with the resident and I reviewed and discussed the case with the resident and agree with the resident's findings and plans of care as documented above Patient seen eval this a.m. She states that she had just worked with physical therapy and has been keeping her eyes closed since she feels like she is on a rocking boat. Patient states that she has had issues with standing up due to her dizziness and also complains of tinnitus. She was able to drink some Ensure this morning. She denies any nausea or vomiting otherwise. Nausea appears to be triggered with her dizziness. Patient states that all her symptoms started 1 month ago. However, was pulled aside by patient's daughter who states that her mother has always had the same complaints for several years and her current symptoms are not new. She states that the patient ultimately needs to go to a rehab since patient is unable to do anything for herself. She also states that the patient did not want to work with physical therapy this morning due to her dizziness and was only able to stand. Patient has been taking a lot of medications at home including Tylenol No. 3 which she would take 4 to 5 pills a day. Patient easily gets addicted to pills per patient's daughter and would like to limit the amount of medication she takes. She is concerned that if the patient goes home, she will start self-medicating again. GI workup showed esophagitis and gastritis, but otherwise was unremarkable. No further workup is required. Pending placement at this time.
[2024-12-24] MEDS: PROMETHAZINE INJ 12.5 MG in SODIUM CHLORIDE 0.9% 50 ML 2.5 MG IV (14:17)
--- NOTE | 2024-12-24 18:12 | PD.IMPROG ---
Documentation for date of: 12/24/24 Subjective Subjective Interval history: Patient's status post colonoscopy which showed internal hemorrhoids diverticulosis colon and mild erythema of the ascending colon left colon rectum biopsies taken and pending Exam Vital Signs Temp Pulse Resp BP Pulse Ox O2 Del Method O2 Flow Rate 98.1 F 104 H 18 147/77 H 95 Room Air 3 12/24/24 15:48 12/24/24 15:48 12/24/24 15:48 12/24/24 15:48 12/24/24 15:48 12/24/24 15:48 12/23/24 16:30 Objective Labs 12/24/24 05:45 12/24/24 05:45 Labs: Laboratory Results - last 24 hr 12/24/24 05:45 WBC 6.9 RBC 4.33 Hgb 13.4 Hct 38.8 MCV 90 MCH 30.9 MCHC 34.5 RDW Std Deviation 44.6 Plt Count 241 Neut % (Auto) 42 Lymph % (Auto) 47 [place] % (Auto) 8 Eos % (Auto) 3 Baso % (Auto) 0 Neut # (Auto) 2.9 Lymph # (Auto) 3.2 [place] # (Auto) 0.5 Eos # (Auto) 0.2 Baso # (Auto) 0.0 Immature Gran # (Auto) 0.02 H Absolute Nucleated RBC 0.00 Immature Gran % 0 Nucleated RBC % 0 Sodium 143 Potassium 3.3 L Chloride 106 Carbon Dioxide 22.7 Anion Gap 14 BUN 6 L Creatinine 0.5 L Estim Creat Clear Calc 77.9 eGFR > 60 BUN/Creatinine Ratio 12 Glucose 84 Calculated Osmolality 281 Calcium 8.7 Corrected Calcium 9.0 Phosphorus 2.9 Magnesium 1.6 Total Bilirubin 0.5 AST 20 ALT 14 Alkaline Phosphatase 88 Total Protein 6.3 Albumin 3.6 Globulin 2.7 Albumin/Globulin Ratio 1.3 Impressions Impression: Internal hemorrhoids Erythematous mucosa ascending colon left colon rectum biopsies pending Continue current management ABG Interpretation ABG results: 12/20/24 12/20/24 14:46 23:26 VBG pH 7.52 7.42 VBG pCO2 29 L 32 L VBG pO2 35 95 H D VBG Base Excess 2 -2 Assessment & Plan A&P Narrative # Multiple GI symptoms of nausea vomiting pain abdomen abnormal CT scan of the abdomen pelvis which has been persistent for quite some time Suggestions Initial test of choice is fiberoptic esophagogastroduodenoscopy with possible biopsy possible therapeutic intervention under intravenous moderate sedation scheduled for tomorrow N.p.o. tomorrow at 10 AM that patient can have clear liquid diet Patient will also undergo fiberoptic colonoscopy after GoLytely prep to rule out any evidence of underlying inflammatory bowel disease or microscopic colitis or ischemic colitis Will follow the patient Other medical problems include Essential hypertension Diabetes mellitus type 2 CVA Hypothyroidism Post hysterectomy Time Spent With Patient Time: Total time spent is greater than 50% in coordination of care (as documented) at patient's floor/unit and/or counseling patient:
[2024-12-24] MEDS: ONDANSETRON INJ 2 MG/ML INJ 2 ML 4 MG IVP (19:33)
[2024-12-24] MEDS: POTASSIUM CHL 10 mEq IVPB 10 MEQ/100 ML BAG 75 MEQ IV (20:13)
[2024-12-24] MEDS: ACETAMINOPHEN 325 MG TABLET 650 MG PO (20:36)
[2024-12-24] MEDS: HYDROcodone/APAP 5/325 TABLET 1 TAB PO (21:50)
[2024-12-25] VITALS: BP 106/64; PULSE 89; RESP 16; TEMP 36.1; O2SAT 97
[2024-12-25 04:00] VITALS: BP 120/71; PULSE 64; RESP 16; TEMP 36.3; O2SAT 98
[2024-12-25] MEDS: metroNIDAZOLE/NS 500 MG IVPB 500 MG/100 ML BAG 200 MG IV ×2 (05:24→13:33)
[2024-12-25] MEDS: LEVOTHYROXINE SODIUM 25 MCG TABLET PO (05:24)
[2024-12-25 05:47] LABS: Basophils # (Auto) 0.0 Thou/mm3 (0.0-0.2); Basophils % (Auto) 0 % (0-2.5); Eosinophils # (Auto) 0.2 Thou/mm3 (0.0-0.5); Eosinophils % (Auto) 3 % (0-10); Hematocrit 40.1 % (36.0-46.0); Hemoglobin 13.8 g/dL (12.0-16.0); Immature Granulocytes Auto 0.02 Thou/mm3 (0.00-0.00); Lymphocytes # (Auto) 3.5 Thou/mm3 (1.0-4.8); Lymphocytes % (Auto) 47 % (10-50); Mean Corpuscular HGB Conc 34.4 g/dl (31.0-37.0); Mean Corpuscular Hemoglobin 31.7 pg (25.0-35.0); Mean Corpuscular Volume 92 fL (80-100); Monocytes # (Auto) 0.7 Thou/mm3 (0.0-0.8); Monocytes % (Auto) 9 % (0-12); Neutrophils # (Auto) 3.0 Thou/mm3 (1.8-7.7); Neutrophils % (Auto) 41 % (37-80); Nucleated Red Blood Cell # 0.00 Thou/mm3 (0.00-0.00); Nucleated Red Blood Cell % 0 /100 WBC (0); Platelet Count 226 Thou/mm3 (140-440); RDW Standard Deviation 46.5 fL (36.4-46.3); Red Blood Count 4.35 Miln/mm3 (4.00-5.20); White Blood Count 7.4 Thou/mm3 (3.6-11.0)
[2024-12-25 06:00] VITALS: BMI 22.8
[2024-12-25 06:07] LABS: Alanine Aminotransferase 12 U/L (10-49); Albumin, Serum 3.7 gm/dL (3.4-4.8); Albumin/Globulin Ratio 1.4 (1.2-2.2); Alkaline Phosphatase 89 U/L (46-116); Anion Gap 11 (7-16); Aspartate Amino Transferase 18 U/L (0-34); BUN/Creatinine Ratio 12 Ratio (12-20); Bilirubin,Total 0.5 mg/dL (0.3-1.2); Blood Urea Nitrogen 6 mg/dL (9-23); Calcium 8.8 mg/dL (8.3-10.6); Calcium (Corrected) 9.0 mg/dL (8.5-10.1); Carbon Dioxide 24.1 mMol/L (20.0-31.0); Chloride 107 mMol/L (98-107); Creatinine (Component) 0.5 mg/dL (0.6-1.3); Estimated Creatinine Clearance 77.9 mL/min (>60); Globulin 2.6 gm/dL (2.3-3.5); Glucose 84 mg/dL (74-106); Osmolality,Calculated 279 (275-295); Potassium 3.3 mMol/L (3.4-5.1); Sodium 142 mMol/L (136-145); Total Protein 6.3 gm/dL (5.7-8.2); eGFR > 60 See Note
[2024-12-25 08:00] VITALS: BP 124/74; PULSE 81; RESP 17; TEMP 36.6; O2SAT 98
[2024-12-25] MEDS: ACETAMINOPHEN 325 MG TABLET 650 MG PO (09:33)
[2024-12-25] MEDS: cefTRIAXone/D5w 1gm IV premix 1 GM/50 ML BAG IV (09:33)
[2024-12-25] MEDS: POTASSIUM CHL 10 mEq IVPB 10 MEQ/100 ML BAG 100 MEQ IV (09:34)
--- NOTE | 2024-12-25 09:46 | PC.SS ---
Follow up note: Pt is on IV antibiotic.
--- NOTE | 2024-12-25 09:51 | PC.NURSE ---
Discharge orders in pending electrolyte replacement
--- NOTE | 2024-12-25 10:26 | ESDS_ITS ---
<Statement entered by Annabella Mayer MD - 01/01/25 14:19> I reviewed above note and agree with findings and plans. I have also personally examined the patient with medicine team and went over assessment and plan with medical team including operations intern and resident physician. Planned Discharge Date 12/25/24 DS: Providers Provider Date of admission: 12/20/24 20:46 Primary care physician: Valerie Cr MD Admitting Provider: Alex Perez DO Attending Provider on Admission: Annabella Mayer MD Consults: 12/20/24 20:49 Consult to Gastroenterology Routine Comment: Colitis, diarrhea Consulting Provider: Sugey Jiang 12/21/24 09:00 Referral Physical Therapy Routine Comment: Physician Instructions: Referral Registered Dietitian Routine Comment: Attending Provider on DC: Annabella Mayer MD Discharging Provider: RESIDENT Nery DS: Diagnosis Problem List Completed Was Problem List Reviewed/Reconciled?: Yes Hospital Course Hospital Course Hospital course: Summary: Patient is a 69-year-old female with past medical history of hypertension, gxp-pphqcin-qkktlmabp type 2 diabetes, CVA, and hypothyroidism pr esenting to the ED on 12/20 with episode of weakness, intractable abdominal pain and nausea, will be admitted with upper GI bleed and concern for starvation ketosis versus euglycemic DKA. Status post endoscopy 12/21 and colonoscopy 12/23. ED Course: In the ED, patient presented normotensive, tachycardic with a heart rate 115, respiratory rate 20, febrile with a temperature 100.5 ?F but saturating 95 on room air. Pertinent lab findings include WBC of 8.0, hemoglobin 14.8, potassium 3.1, lactic acid initially 5.1 improved to 2.7 with IV fluid resuscitation, magnesium 1.2, T. bili 0.8, AST 19, ALT 12, troponin within normal limits, BNP less than 20, lipase 46. Urinalysis showed ketones and glucose but no signs of urinary tract infection. U tox was positive for opiates. Chest x-ray showed no pneumonia or pulmonary edema, head CT was negative for hemorrhage or mass effect, EKG showed sinus tachycardia with no concerning ST changes and CT chest abdomen pelvis showed moderate calcification of the LAD, mild vascular congestion, moderate diffuse nonspecific colitis and subacute appearing mild compression fracture of the L4 L3 region Reason for hospitalization: Patient admitted on 12/20 for concern of upper GI bleed and starvation ketosis versus euglycemic DKA. Patient has been taking Jardiance for type 2 diabetes, had elevated PA hydroxybutyrate on admission. Resolved with IV fluid resuscitation. Patient was started on IV metronidazole and ceftriaxone empirically for colitis on 12/21. Consulted GI Dr. Jiang, completed endoscopy and colonoscopy, which showed esophagitis, gastritis, hemorrhoids, diverticulosis in the descending and sigmoid colon. Also found erythematous mucosa in ascending colon, sigmoid colon, and rectum. Colonoscopy findings likely consistent with resolving infectious enterocolitis, unlikely inflammatory bowel disease. Pending biopsies. Nausea resolved with Zofran and IV promethazine. No melena observed during hospital stay. Of note patient has history of opioid abuse per daughter, patient had a fall prior to this admission and has mild acute compression fracture of L4. U tox was positive for opiates on admission, possible that patient is also in opioid withdrawal given relatively unremarkable colonoscopy. Consider rehabilitation for chronic pain and opioid use outpatient. Patient is able to tolerate carbohydrate consistent diet. Will not be continuing antibiotics as pt afebrile, no leukocytes on CBC and symptoms resolved, empiric treatment is not generally recommended. Will discharge with Zofran and Protonix per patient request. Discharge Recommendations: -Continue all home medication as prescribed -Please follow up with your primary care provider within one week of discharge -If your symptoms worsen,please seek immediate medical attention and return to your nearest emergency room -If you do not have a primary care provider, you may follow up at the [facility] at [address], [place] [address], Hospital Diagnoses: #Nonspecific colitis #Esophagitis #Gastritis #Starvation ketosis vs. Euglycemic DKA - resolved #Electrolyte abnormalities #Wbk-xtpdqro-tctktmhpp type 2 diabetes #Hypothyroidism #Hypertension #History of CVA #Subacute mild compression fracture of the L3-L4 region #Depression/anxiety #Opioid abuse disorder Disposition: Safe discharge to home with home health Senior resident attestation: Patient evaluated and examined at the bedside, plan of care discussed with rest of the team including my attending physician, except as noted. Quresh PGY3 Time Spent with Patient Time attestation: Total time spent providing and/or coordinating discharge services: at least 30 minutes of care coordination Time spent: Greater than 30 minutes Exam Vital Signs Temp Pulse Resp BP Pulse Ox O2 Del Method O2 Flow Rate 97.8 F 81 17 124/74 98 Room Air 3 12/25/24 08:00 12/25/24 08:00 12/25/24 08:00 12/25/24 08:00 12/25/24 08:00 12/25/24 08:00 12/23/24 16:30 Discharge Plan Plan Patient Disposition: Home w/HOME HEALTH Patient condition on transfer: Stable Care Plan Goals: Instructions: -Continue all home medication as prescribed -Please follow up with your primary care provider within one week of discharge -Home health agency will be in contact to schedule first visit -If your symptoms worsen,please seek immediate medical attention and return to your nearest emergency room -If you do not have a primary care provider, you [facility] [address], [place] [address], Prescriptions/Referrals Prescriptions/Med Rec: Continued pantoprazole [Protonix] 40 MG tablet,delayed release (DR/EC) 40 mg PO QDAY Qty: 0 Patient Comments: TO SUPPRESS GASTRIC SECRETIONS ondansetron HCl 4 mg tablet 4 mg PO TID PRN (Reason: Nausea) levothyroxine 25 mcg tablet 25 mcg PO QDAY metformin 500 mg tablet extended release 24 hr 500 mg PO QID Januvia 25 mg tablet 25 mg PO QDAY meclizine 25 mg tablet 25 mg PO TID Qty: 90 0RF clopidogrel 75 mg tablet 75 mg PO QDAY Qty: 30 0RF zolpidem 5 mg tablet 5 mg PO HSPRN PRN (Reason: Sleep) Patient Comments: TAKE 1 TABLET BY MOUTH AT BEDTIME NEEDED FOR INSOMNIA acetaminophen-codeine 300-30 mg tablet 1 tab PO [id number] PRN (Reason: Pain) Patient Comments: TAKE 1 TABLET BY MOUTH EVERY 6 HOURS NEEDED FOR PAIN atorvastatin 20 mg tablet 20 mg PO DAILY Patient Comments: TAKE 1 TABLET BY MOUTH EVERY DAY calcitriol 0.25 mcg capsule 0.25 mcg PO DAILY Patient Comments: TAKE 1 CAPSULE BY MOUTH EVERY DAY Jardiance 25 mg tablet 25 mg PO DAILY Patient Comments: TAKE 1 TABLET BY MOUTH EVERY MORNING aspirin 81 mg tablet,delayed release (DR/EC) 81 mg PO HS Qty: 20 0RF meloxicam 7.5 mg tablet 7.5 mg PO QDAY Qty: 10 0RF ondansetron 4 mg tablet,disintegrating 4 mg PO Q8H Qty: 14 0RF Referrals: Valerie Cr MD [Primary Care Provider] - Patient/Caregiver Discharge Instructions Education Materials: ED Gastroenteritis, Bacterial (Adult) Print Language: [place] Stand Alone Forms: [employer] Award Info., Patient Portal Info Letter Discharge Order Discharge Orders: Discharge (Routine); Ordered 12/25/24 Ordered By: Miladys Melo Quality Discharge Quality Measures VTE prophylaxis
[2024-12-25] MEDS: POTASSIUM CHL 10 mEq IVPB 10 MEQ/100 ML BAG 75 MEQ IV ×3 (10:57→13:34)
--- NOTE | 2024-12-25 11:19 | PC.NURSE ---
Received call from MD during their rounds, per MD, pt is nauseous. Requested for pt to have her PRN zofran in anticipation of discharge.
--- NOTE | 2024-12-25 11:27 | PC.SS ---
SS met with pt who is refusing SNF for short term placement. SS has called and spoken to Julia, patient's granddaughter who is aware and states pt will return home upon dc. Julia states she will inform her mom, patient's dtr. SS attempted to call [facility] dtr [facility] but was unable to leave voicemail. Julia states she will have dtr strip picker pt after 3pm.
[2024-12-25] MEDS: ONDANSETRON INJ 2 MG/ML INJ 2 ML 4 MG IVP (11:28)
--- NOTE | 2024-12-25 11:30 | PC.NURSE ---
in to administer zofran, noted belching with relief, offered mylicon chew to pt
[2024-12-25] MEDS: SIMETHICONE 80 MG CHEW PO (11:54)
[2024-12-25 12:00] VITALS: BP 117/79; PULSE 89; RESP 18; TEMP 36.2; O2SAT 96
--- NOTE | 2024-12-25 12:36 | PC.SS ---
Follow up note: SS spoke to dtrnabor by phone who is aware pt is refusing SNF. Daughter's choice is for pt to return home upon dc and will provide transport at 4pm. Bedside nurse, Sharon is aware. Pt is agreeable to HH and dtr does not have preference. Pt followed up with Dr. Cr, PCP 2 weeks ago.
[2024-12-25 16:00] VITALS: BP 117/79; BP 152/86; PULSE 87; PULSE 89; PULSE 92; RESP 18; TEMP 36.2; O2SAT 96; O2SAT 97
--- NOTE | 2024-12-25 22:15 | PD.IMPROG ---
Documentation for date of: 12/25/24 Subjective Subjective Interval history: late entry for the note Case discussed with internal medicine team okay to discharge patient Colonoscopy showed erythema of the colon biopsies are pending Exam Vital Signs Temp Pulse Resp BP Pulse Ox O2 Del Method O2 Flow Rate 97.1 F 92 18 152/86 H 97 Room Air 3 12/25/24 16:00 12/25/24 16:00 12/25/24 16:00 12/25/24 16:00 12/25/24 16:00 12/25/24 16:00 12/25/24 16:00 Objective Labs 12/25/24 04:56 12/25/24 04:56 Labs: Laboratory Results - last 24 hr 12/25/24 04:56 WBC 7.4 RBC 4.35 Hgb 13.8 Hct 40.1 MCV 92 MCH 31.7 MCHC 34.4 RDW Std Deviation 46.5 H Plt Count 226 Neut % (Auto) 41 Lymph % (Auto) 47 [place] % (Auto) 9 Eos % (Auto) 3 Baso % (Auto) 0 Neut # (Auto) 3.0 Lymph # (Auto) 3.5 [place] # (Auto) 0.7 Eos # (Auto) 0.2 Baso # (Auto) 0.0 Immature Gran # (Auto) 0.02 H Absolute Nucleated RBC 0.00 Immature Gran % 0 Nucleated RBC % 0 Sodium 142 Potassium 3.3 L Chloride 107 Carbon Dioxide 24.1 Anion Gap 11 BUN 6 L Creatinine 0.5 L Estim Creat Clear Calc 77.9 eGFR > 60 BUN/Creatinine Ratio 12 Glucose 84 Calculated Osmolality 279 Calcium 8.8 Corrected Calcium 9.0 Total Bilirubin 0.5 AST 18 ALT 12 Alkaline Phosphatase 89 Total Protein 6.3 Albumin 3.7 Globulin 2.6 Albumin/Globulin Ratio 1.4 Impressions Impression: Erythema COLON Biopsies pending Patient can be followed by the PCP upon discharge ABG Interpretation ABG results: 12/20/24 12/20/24 14:46 23:26 VBG pH 7.52 7.42 VBG pCO2 29 L 32 L VBG pO2 35 95 H D VBG Base Excess 2 -2 Assessment & Plan A&P Narrative # Multiple GI symptoms of nausea vomiting pain abdomen abnormal CT scan of the abdomen pelvis which has been persistent for quite some time Suggestions Initial test of choice is fiberoptic esophagogastroduodenoscopy with possible biopsy possible therapeutic intervention under intravenous moderate sedation scheduled for tomorrow N.p.o. tomorrow at 10 AM that patient can have clear liquid diet Patient will also undergo fiberoptic colonoscopy after GoLytely prep to rule out any evidence of underlying inflammatory bowel disease or microscopic colitis or ischemic colitis Will follow the patient Other medical problems include Essential hypertension Diabetes mellitus type 2 CVA Hypothyroidism Post hysterectomy Time Spent With Patient Time: Total time spent is greater than 50% in coordination of care (as documented) at patient's floor/unit and/or counseling patient:
--- NOTE | 2024-12-26 08:22 | PC.CC ---
Addendum entered by Shelli Casillas RN 12/26/24 11:01: [facility] accepted and booked, SOC 12/27/24 Original Note: HH ref sent out, waiting for responses
== END 2024-12-25 16:45 | disposition home health service (06) | DRG 391 ==
LOC: SERX 19:01 → SERHOLD 20:58 → S3SX 23:57
PROVIDERS: Emergency Medicine; Specialist; Admitting Provider Student in an Organized Health Care Education/Training Program; Emergency Provider Student in an Organized Health Care Education/Training Program; PCP Internal Medicine; Visit Provider Internal Medicine
PROC: 0DB48ZX Excision of Esophagogastric Junction, Via Natural or Artificial Opening Endoscopic, Diagnostic (ICD-10-PCS; CPT 43239; principal; 2024-12-21 19:00)
PROC: 0DJD8ZZ Inspection of Lower Intestinal Tract, Via Natural or Artificial Opening Endoscopic (ICD-10-PCS; CPT 45378; principal; 2024-12-22 17:30)
DX: K52.9 Noninfective gastroenteritis and colitis, unspecified (principal); E11.10 Type 2 diabetes mellitus with ketoacidosis without coma; S32.039A Unspecified fracture of third lumbar vertebra, initial encounter for closed fracture; F11.23 Opioid dependence with withdrawal; I10 Essential (primary) hypertension; E11.9 Type 2 diabetes mellitus without complications; Z86.73 Personal history of transient ischemic attack (TIA), and cerebral infarction without residual deficits; E03.9 Hypothyroidism, unspecified; F32.A Depression, unspecified; F41.9 Anxiety disorder, unspecified; G35 Multiple sclerosis; R29.6 Repeated falls; R82.4 Acetonuria; K64.8 Other hemorrhoids; Z79.84 Long term (current) use of oral hypoglycemic drugs; Z79.890 Hormone replacement therapy; Z79.899 Other long term (current) drug therapy; K20.90 Esophagitis, unspecified without bleeding; K29.70 Gastritis, unspecified, without bleeding; K57.30 Diverticulosis of large intestine without perforation or abscess without bleeding; W19.XXXA Unspecified fall, initial encounter; Z79.02 Long term (current) use of antithrombotics/antiplatelets; Z90.710 Acquired absence of both cervix and uterus; Z88.5 Allergy status to narcotic agent; Z88.0 Allergy status to penicillin
CPT/HCPCS: 36415; 70450; 71045; 71260; 74177; 80048; 80053; 80307; 80320; 81001; 82010; 82140; 82803; 83036; 83605; 83735; 83880; 83993; 84100; 84145; 84484; 85025; 85610; 86850; 86900; 86901; 87015; 87040; 87045; 87046; 87205; 87329; 87400; 87493; 87811; 87899; 93005; 93225; 94762; 97162; A4649; J0696; J1171; J1200; J1885; J2185; J2250; J2405; J2470; J2550; J2765; J3010; J3373; J3475; J3480; J3490; J7030; J7050; J7120; J7121; Q9967; A9270; G0480; J1836

== ENCOUNTER 2025-02-07 15:07 | Emergency (ER) | payer MEDICARE, MEDICAID, SELFPAY ==
[2025-02-07 15:09] VITALS: BP 134/70; PULSE 91; RESP 16; TEMP 37; O2SAT 96; BMI 22.6
--- NOTE | 2025-02-07 15:11 | EKG_ITS ---
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
--- NOTE | 2025-02-07 15:13 | PD.EDADULT ---
ED General RME/HPI General Chief complaint: Nausea/Vomiting/Diarrhea Stated complaint: NAUSEA Time Seen by Provider: 02/07/25 15:11 Arrival date/time: 02/07/25 15:07 CC: Nausea HPI ongoing for the past 3 months, without vomiting. Patient states she has been trying to sleep with night NyQuil every 4 hours. Patient denies fever chills chest pain shortness of breath EMS reports stable vital signs and route. Patient was very specific about antiemetics stating that meclizine works best for her. Compazine Reglan and ondansetron are not as effective. Related Data Home Medications ?Medication ?Instructions ?Recorded ?Confirmed pantoprazole 40 mg tablet,delayed 40 mg PO QDAY ##0 02/07/14 12/21/24 release (Protonix) levothyroxine 25 mcg tablet 25 mcg PO QDAY 05/06/21 12/21/24 metformin 500 mg tablet,extended 500 mg PO QID 05/06/21 12/21/24 release 24 hr ondansetron HCl 4 mg tablet 4 mg PO TID PRN Nausea 05/06/21 12/21/24 sitagliptin phosphate 25 mg tablet 25 mg PO QDAY 05/06/21 12/21/24 (Januvia) acetaminophen 300 mg-codeine 30 mg 1 tab PO [id number] PRN Pain 06/22/24 12/21/24 tablet atorvastatin 20 mg tablet 20 mg PO DAILY 06/22/24 12/21/24 calcitriol 0.25 mcg capsule 0.25 mcg PO DAILY 06/22/24 12/21/24 empagliflozin 25 mg tablet 25 mg PO DAILY 06/22/24 12/21/24 (Jardiance) zolpidem 5 mg tablet 5 mg PO HSPRN PRN Sleep 06/22/24 12/21/24 Previous Rx's ?Medication ?Instructions ?Recorded clopidogrel 75 mg tablet 75 mg PO QDAY #30 tabs 09/06/23 meclizine 25 mg tablet 25 mg PO TID #90 tabs 09/06/23 aspirin 81 mg tablet,delayed 81 mg PO HS FOR DVT prophylaxis 06/26/24 release #20 tabs meloxicam 7.5 mg tablet 7.5 mg PO QDAY #10 tabs 10/24/24 ondansetron 4 mg disintegrating 4 mg PO Q8H #14 tabs 10/24/24 tablet Allergies Allergy/AdvReac Type Severity Reaction Status Date / Time morphine Allergy Severe VOMITING Verified 02/07/25 15:24 Penicillins Allergy Severe Hives Verified 02/07/25 15:24 adhesive Allergy Intermediate Rash Verified 02/07/25 15:24 Review of Systems Review of Systems Narrative Review of Systems: GEN: No fever, no chills, no weight loss EYES: No discharge, no visual changes, no pain HEENT: No ear pain, no congestion, no sore throat PULM: No shortness of breath, no cough, no congestion CV: No chest pain, no dyspnea on exertion, no palpitations GI: + nausea, no vomiting, no diarrhea, no pain, no constipation : No frequency, no urgency, no dysuria MUSC/SKEL: No joint pain, no back pain SKIN: No rash PSYCH: No hallucinations, no depression HEME/LYMPH: No easy bleeding or bruising tendencies NEURO: No weakness, no headache Past Medical History Past Medical History NEUROLOGIC: Positive Neurological Disorders, Cerebrovascular Accident, Transient Ischemic Attacks (TIA) and Multiple Sclerosis; Negative Seizures CARDIAC: Positive Hypertension; Negative Cardiac Disorders or Congestive Heart Failure RESPIRATORY: Negative Chronic Obstructive Pulmonary Disease (COPD), Asthma, Smoking, Smoking Cessation Counseling or Smoking Exposure GENITOURINARY: Negative Renal Disease ENT: Negative Glaucoma ENDOCRINE: Positive Diabetes Mellitus Type 2 and Hypothyroidism; Negative Diabetes Mellitus Type 1 HEMATOLOGIC: Negative Blood Disorders or Sickle Cell Disease PSYCHO/SOCIAL: Positive Depression OTHER HISTORY: Negative Anesthesia Reactions Social History SMOKING STATUS: Never smoker ED Exam Narrative Physical exam: [General: In moderate discomfort but not in any acute distress Head normocephalic HEENT: Eyes: Pupils are PERRLA EOMs are intact mouth pink dry membranes uvula is midline swallow symmetrical phonation is normal. All of the substance of HEENT are within acceptable limits Neck is supple nontender Chest equal chest rise nontender to palpation Respiratory: Clear to auscultation no wheezes crackles or rubs CV: Rate rhythm is regular no murmurs rubs or clicks Abdomen is soft nontender no masses positive bowel sounds all 4 quadrants Back: No CVA tenderness no spinous process tenderness from cervical spine thoracic and lumbar spine Skin: Intact no petechiae rash induration ulceration or crepitus Extremities: Moving all extremity against resistance cap refill less than 2 seconds neurosensory intact. No lower extremity edema Neuro: Awake alert oriented x3 Glascow coma 15 no focal deficits] Course Quality Measures none Orders Category Date Time Status EKG (ED ONLY) *Do not use* NOW Care 02/07/25 15:12 Completed Saline [Insert IV] NOW Care 02/07/25 15:12 Active EKG (ED Only) Stat Exams 02/07/25 15:11 Draft Beta Hydroxybutyrate Stat Lab 02/07/25 15:58 Completed CBC Stat Lab 02/07/25 15:58 Completed CMP [Comprehensive Metabolic Panel] Stat Lab 02/07/25 15:58 Completed Creatine Kinase Stat Lab 02/07/25 15:58 Completed Drug Screen,Urine Stat Lab 02/07/25 18:31 Received Lipase Stat Lab 02/07/25 15:58 Completed Mag [Magnesium] Stat Lab 02/07/25 15:58 Completed Troponin I Stat Lab 02/07/25 15:58 Completed Urinalysis Stat Lab 02/07/25 18:31 Completed VBG [Venous Blood Gas] Stat Lab 02/07/25 15:58 Completed Meclizine HCl [Antivert] Med 02/07/25 16:28 Discontinued 50 mg PO X1 ONE Sodium Chloride 0.9% 1000 ml [Ns] 1,000 ml Med 02/07/25 15:17 Discontinued IV 999 mls/hr Vital Signs Vital signs: Vital Signs Temperature 98.6 F 02/07/25 15:09 Pulse Rate 91 02/07/25 15:09 Respiratory Rate 16 02/07/25 15:09 Blood Pressure 134/70 H 02/07/25 15:09 Pulse Oximetry (%) 96 02/07/25 15:09 Oxygen Delivery Method Room Air 02/07/25 15:09 Discharge Plan Plan Patient Disposition: HOME (Self Care) Patient condition on transfer: Stable Prescriptions/Referrals Prescriptions/Med Rec: No Action pantoprazole [Protonix] 40 MG tablet,delayed release (DR/EC) 40 mg PO QDAY Qty: 0 Patient Comments: TO SUPPRESS GASTRIC SECRETIONS ondansetron HCl 4 mg tablet 4 mg PO TID PRN (Reason: Nausea) levothyroxine 25 mcg tablet 25 mcg PO QDAY metformin 500 mg tablet extended release 24 hr 500 mg PO QID Januvia 25 mg tablet 25 mg PO QDAY meclizine 25 mg tablet 25 mg PO TID Qty: 90 0RF clopidogrel 75 mg tablet 75 mg PO QDAY Qty: 30 0RF zolpidem 5 mg tablet 5 mg PO HSPRN PRN (Reason: Sleep) Patient Comments: TAKE 1 TABLET BY MOUTH AT BEDTIME NEEDED FOR INSOMNIA acetaminophen-codeine 300-30 mg tablet 1 tab PO [id number] PRN (Reason: Pain) Patient Comments: TAKE 1 TABLET BY MOUTH EVERY 6 HOURS NEEDED FOR PAIN atorvastatin 20 mg tablet 20 mg PO DAILY Patient Comments: TAKE 1 TABLET BY MOUTH EVERY DAY calcitriol 0.25 mcg capsule 0.25 mcg PO DAILY Patient Comments: TAKE 1 CAPSULE BY MOUTH EVERY DAY Jardiance 25 mg tablet 25 mg PO DAILY Patient Comments: TAKE 1 TABLET BY MOUTH EVERY MORNING aspirin 81 mg tablet,delayed release (DR/EC) 81 mg PO HS Qty: 20 0RF meloxicam 7.5 mg tablet 7.5 mg PO QDAY Qty: 10 0RF ondansetron 4 mg tablet,disintegrating 4 mg PO Q8H Qty: 14 0RF Referrals: No Primary/Family,Physician [Primary Care Provider] - In 1 week Problem List Clinical Impression: Cannabinoid hyperemesis syndrome Patient/Caregiver Discharge Instructions Other Activity Instructions:: Top using marijuana stop using vsdw-fwi-segbkal medication such as NyQuil or DayQuil each time you have issues allow these to dissipate out of your system take only the medications prescribed by your doctor. If there is a worsening of symptoms follow-up with your primary care doctor. Education Materials: Self-Care for Vomiting and Diarrhea, ED Diet for Vomiting or ... Print Language: Occitan Stand Alone Forms: [employer]oda Award Info., Work/School Release, Patient Portal Info Letter PA/ASSOCIATE SOFTWARE APPLICATION ENGINEER Supervising Physician PA/ASSOCIATE SOFTWARE APPLICATION ENGINEER Supervising Physician: Fuad Quinonez ENP [facility] Clinical Information Provided by patient and EMS Medical Records Reviewed [facility] and EMS Meds/Rx Considered, not Ordered None Labs/Rad/Tests considered, not Ordered None Chronic Illness/Social Conditions Add or document further as needed: Chronic nausea Lab Interpretation Lab(s) interpretation(s): CBC shows no acute leukocytosis anemia thrombocytopenia VBG shows a pH of 7.59 pCO2 24 pO2 of 82 CMP shows no significant electrolyte imbalances renal impairment transaminitis or T. bili elevation Creatinine kinase at 17 Troponin is unremarkable Lipase is 45 Beta hydroxybutyrate at 0.1. Urine is negative Medication Administration(s) none Medication Administration History Discontinued Medications Sodium Chloride (Ns) 1,000 mls @ 999 mls/hr IV .Q1H1M ONE Stop: 02/07/25 16:17 Last Infusion: 02/07/25 18:37 Dose: Infused Documented By: Admin: 02/07/25 16:38 Dose: 999 mls/hr Documented By: NATALIA Meclizine HCl (Meclizine Hcl 25 Mg Tablet) 50 mg PO X1 ONE Stop: 02/07/25 16:29 Last Admin: 02/07/25 16:38 Dose: 50 mg Documented By: NATALIA Diagnosis Differential diagnosis: Rhabdo myelosis electrolyte imbalance dehydration chronic nausea cannabis i Dispositon Disposition: Discharge Home
[2025-02-07 15:21] VITALS: PULSE 94; O2SAT 95
[2025-02-07 16:11] LABS: Base Excess, Venous 3 (-3-3); O2 Saturation, Venous 99 % (96-97); PCO2, Venous 24 mmHg (36-56); PO2, Venous 82 mmHg (15-58); pH, Venous 7.59 (7.33-7.66)
[2025-02-07 16:14] LABS: Basophils # (Auto) 0.0 Thou/mm3 (0.0-0.2); Basophils % (Auto) 0 % (0-2.5); Beta Hydroxybutyrate 0.1 mmol/L (<0.6); Eosinophils # (Auto) 0.0 Thou/mm3 (0.0-0.5); Eosinophils % (Auto) 0 % (0-10); Hematocrit 41.5 % (36.0-46.0); Hemoglobin 14.3 g/dL (12.0-16.0); Immature Granulocytes Auto 0.02 Thou/mm3 (0.00-0.00); Lymphocytes # (Auto) 2.8 Thou/mm3 (1.0-4.8); Lymphocytes % (Auto) 40 % (10-50); Mean Corpuscular HGB Conc 34.5 g/dl (31.0-37.0); Mean Corpuscular Hemoglobin 31.0 pg (25.0-35.0); Mean Corpuscular Volume 90 fL (80-100); Monocytes # (Auto) 0.5 Thou/mm3 (0.0-0.8); Monocytes % (Auto) 7 % (0-12); Neutrophils # (Auto) 3.7 Thou/mm3 (1.8-7.7); Neutrophils % (Auto) 52 % (37-80); Nucleated Red Blood Cell # 0.00 Thou/mm3 (0.00-0.00); Nucleated Red Blood Cell % 0 /100 WBC (0); Platelet Count 227 Thou/mm3 (140-440); RDW Standard Deviation 42.0 fL (36.4-46.3); Red Blood Count 4.61 Miln/mm3 (4.00-5.20); White Blood Count 7.0 Thou/mm3 (3.6-11.0)
[2025-02-07 16:38] LABS: Alanine Aminotransferase 19 U/L (10-49); Albumin, Serum 4.1 gm/dL (3.4-4.8); Albumin/Globulin Ratio 1.5 (1.2-2.2); Alkaline Phosphatase 64 U/L (46-116); Anion Gap 12 (7-16); Aspartate Amino Transferase 22 U/L (0-34); BUN/Creatinine Ratio 13 Ratio (12-20); Bilirubin,Total 0.6 mg/dL (0.3-1.2); Blood Urea Nitrogen 8 mg/dL (9-23); Calcium 10.1 mg/dL (8.3-10.6); Calcium (Corrected) 10.1 mg/dL (8.5-10.1); Carbon Dioxide 23.2 mMol/L (20.0-31.0); Chloride 103 mMol/L (98-107); Creatine Kinase 17 U/L (34-171); Creatinine (Component) 0.6 mg/dL (0.6-1.3); Estimated Creatinine Clearance 64.0 mL/min (>60); Globulin 2.7 gm/dL (2.3-3.5); Glucose 105 mg/dL (74-106); Lipase 45 U/L (12-53); Magnesium 2.0 mg/dL (1.6-2.6); Osmolality,Calculated 273 (275-295); Potassium 3.6 mMol/L (3.4-5.1); Sodium 138 mMol/L (136-145); Total Protein 6.8 gm/dL (5.7-8.2); Troponin I < 0.002 ng/mL (0.0-0.045); eGFR > 60 See Note
[2025-02-07] MEDS: SODIUM CHLORIDE 0.9% 1000 ML 1,000 ML 999 ML IV (16:38)
[2025-02-07] MEDS: MECLIZINE HCL 25 MG TABLET 50 MG PO (16:38)
[2025-02-07 18:52] LABS: Collection Type, Urine Clean Catch; RBC,Urine 0 /hpf (0-3); Squamous Epithelial Cell,Urine 0 /hpf (0-5); WBC,Urine 0 /hpf (0-5)
[2025-02-07 18:58] VITALS: BP 146/87; PULSE 93; RESP 16; TEMP 36.6; O2SAT 95
[2025-02-07 19:13] LABS: Bilirubin,Urine Negative (Negative); Blood,Urine Negative (Negative); Clarity,Urine Clear (Clear/Hazy); Color,Urine Lt-Yellow (Lt Yel-Yel); Glucose, Urine 4+ (Negative); Ketones,Urine Trace (Negative); Leukocyte Esterase,Urine Negative (Negative); Nitrite,Urine Negative (Negative); PH,Urine 8.0 (5.0-7.0); Protein,Urine Negative (Neg - Trace); Specific Gravity,Urine 1.013 (1.001-1.035); Urobilinogen,Urine Negative mg/dL (0.0-1.0)
[2025-02-07 19:25] LABS: Amphetamine/Methamp Scrn,U Negative (Negative); Barbiturate Screen,Urine Negative (Negative); Benzodiazepines Screen,Urine Negative (Negative); Benzoylecgonine Screen, Ur Negative (Negative); Fentanyl Screen,Urine Negative (Negative); Opiate Screen,Urine Negative (Negative); THC Screen,Urine Positive (Negative)
--- NOTE | 2025-02-07 19:49 | PC.NURSE ---
THIS RN ENTERED PATIENTS ROOM TO EDUCATE PATIENT ON DISCHARGE AND DISCHARGE INSTRUCTIONS. PER PATIENT I AM GOING TO DRINK ZZQUIL AND MARIJUANA WHEN I GET HOME TO MAKE ME FEEL BETTER. . INFORMED PATIENT DOCTOR DOES NOT RECOMMEND THAT A TREATMENT PLAN. DAUGHTER AT BESIDE AGREES. PT DAUGHTER STATES I WILL STAY WITH HER TONIGHT AND WATCH HER
[2025-02-07 19:53] VITALS: BP 148/91; PULSE 96; RESP 14; TEMP 37; O2SAT 99
== END 2025-02-07 19:57 | disposition home or self-care (01) ==
PROVIDERS: Registered Nurse General Practice; Emergency Provider Emergency Medicine
DX: R11.2 Nausea with vomiting, unspecified (principal); F12.90 Cannabis use, unspecified, uncomplicated
CPT/HCPCS: 36415; 80053; 80307; 81001; 82010; 82550; 82803; 83690; 83735; 84484; 85025; 93005; 96360; 96361; 99283; J7030; A9270